=== PATIENT | male | born 1940 | race Caucasian/White ===

== ENCOUNTER 2024-10-15 06:09 | Emergency (ER) | payer MEDICARE, BC, SELFPAY ==
[2024-10-15] VITALS (8 sets, daily range): BP systolic 107–134; BP diastolic 61–84; PULSE 57–67; RESP 16–20; TEMP 36.8–36.9; O2SAT 95–98; BMI 38.0
--- NOTE | 2024-10-15 06:11 | ED_ITS ---
Discharge Plan Disposition Patient Disposition: Home, Self-Care Chief Complaint: Abdominal Pain Prescriptions Prescriptions: No Action citalopram 20 mg tablet PO Patient Comments: TAKE 1 TABLET BY MOUTH EVERY DAY tamsulosin 0.4 mg capsule PO Patient Comments: TAKE 2 CAPSULES BY MOUTH EVERY DAY Entresto 24-26 mg tablet PO Patient Comments: TAKE 1 TABLET BY MOUTH EVERY 12 HOURS temazepam 30 mg capsule PO Patient Comments: TAKE 1 CAPSULE BY MOUTH AT BEDTIME furosemide 40 mg tablet PO Patient Comments: TAKE 1 TABLET BY MOUTH EVERY DAY atorvastatin 40 mg tablet PO Patient Comments: TAKE 1 TABLET BY MOUTH EVERY DAY finasteride 5 mg tablet PO Patient Comments: TAKE 1 TABLET EVERY DAY carvedilol 6.25 mg tablet PO Patient Comments: TAKE 1 TABLET BY MOUTH TWICE A DAY Eliquis 5 mg tablet PO Patient Comments: TAKE 1 TABLET BY MOUTH EVERY 12 HOURS albuterol sulfate 90 mcg/actuation HFA aerosol inhaler inhalation Patient Comments: INHALE 2 PUFFS EVERY 6 HOURS NEEDED FOR WHEEZING OR SHORTNESS OF AIR. potassium chloride [Klor-Con M20] 20 mEq tablet,ER particles/crystals PO Patient Comments: TAKE 1 TABLET BY MOUTH EVERY DAY urea 40 % cream 1 applic topical BID 30 Days Qty: 60 3RF mupirocin 2 % ointment 1 applic topical BID 21 Days Qty: 22 1RF Rx Instructions: Apply to affected area up to twice daily Activity Restrictions/Add. Instructions Additional Instructions/Restrictions: Maintain follow-up with surgery. You do have small inguinal hernia on the right, but no intestine is involved. Call your family doctor to establish care for this visit to the emergency department and schedule follow-up within 48 hours to ensure improvement. If you have any worsening of your condition or any other concerning signs or symptoms, return to the emergency department or your primary care doctor for further evaluation. Clinical Impressions Clinical Impression: Inguinal hernia, right Instructions Patient Instructions: DI for Acute Abdominal Pain Print Language Print Language: Albanian Discharge ED Provider: Dhaval Carrillo General Adult HPI <Lico Nowak MD - Last Filed: 10/15/24 06:54> General Chief complaint: Abdominal Pain Stated complaint: Abd pain Time Seen by Provider: 10/15/24 06:11 History of Present Illness HPI narrative: 84-year-old male with reported history of diabetes, umbilical hernia repair, diverticulitis presents for lower abdominal pain. He reports has been ongoing for about a month but is significantly worse today. He also reports that he has had a few days of swelling in his right testicle and it is hurting worse as well. Denies fever at home. Reports normal urination. Reports he has not had a bowel movement in a while. Related Data Home Medications ?Medication ?Instructions ?Recorded ?Confirmed albuterol sulfate 90 mcg/actuation inhalation 09/28/23 09/28/23 aerosol inhaler apixaban 5 mg tablet (Eliquis) mg PO 09/28/23 09/28/23 atorvastatin 40 mg tablet mg PO 09/28/23 09/28/23 carvedilol 6.25 mg tablet mg PO 09/28/23 09/28/23 citalopram 20 mg tablet mg PO 09/28/23 09/28/23 finasteride 5 mg tablet mg PO 09/28/23 09/28/23 furosemide 40 mg tablet mg PO 09/28/23 09/28/23 potassium chloride 20 mEq meq PO 09/28/23 09/28/23 tablet,extended release(part/cryst) (Klor-Con M) sacubitril 24 mg-valsartan 26 mg tab PO 09/28/23 09/28/23 tablet (Entresto) tamsulosin 0.4 mg capsule mg PO 09/28/23 09/28/23 temazepam 30 mg capsule mg PO 09/28/23 09/28/23 Previous Rx's ?Medication ?Instructions ?Recorded mupirocin 2 % topical ointment 1 applic topical BID cellulitis 3 09/28/23 weeks #22 grams urea 40 % topical cream 1 applic topical BID keratosis 30 09/28/23 days #60 applic Allergies Allergy/AdvReac Type Severity Reaction Status Date / Time No Known Allergies Allergy Verified 09/28/23 13:16 [facility] <Lico Nowak MD - Last Filed: 10/15/24 06:54> [facility] Disclaimer: The information contained in this section may have been updated after the patient was seen, as this information can be updated by other users. Medical History (Updated 10/15/24 @ 09:18 by Dhaval Carrillo MD) FH: cholecystectomy Inguinal hernia Kidney stones Shortness of breath Surgical History (Updated 09/28/23 @ 13:27 by Debra Hermosillo MA) H/O hernia repair S/P placement of cardiac pacemaker Family History (Updated 09/28/23 @ 13:40 by Debra Hermosillo MA) Father Cancer Diabetes Mother Heart disease Social History (Updated 09/28/23 @ 13:29 by Debra Hermosillo MA) Smoking Status: Never smoker alcohol intake: never substance use type: denies use current occupational status: retired Travel in the last 8 weeks?: Inside the [place] household members: spouse housing: house lives independently: Yes marital status: Other Medical History Have you received the Pneumonia Vaccine: Yes <Lico Nowak MD - Last Filed: 10/15/24 06:54> ROS Obtained: Yes All systems reviewed & no additional complaints except as documented Physical Exam <Lico Nowak MD - Last Filed: 10/15/24 06:54> General General appearance: alert and in no apparent distress Head Head exam: atraumatic and normocephalic Eye Eye exam: Present normal appearance, PERRL and EOMI ENT ENT exam: Present normal oropharynx and normal external ear exam Neck Neck exam: Present normal inspection and full ROM Chest Chest inspection: Present normal inspection and symmetric chest wall rise; Absent tenderness Respiratory Respiratory exam: Present normal lung sounds bilaterally; Absent respiratory distress Cardiovascular Cardiovascular exam: Present regular rate and normal rhythm Abdominal Exam Abdominal exam: Present soft, distention and tenderness (Midline and bilateral lower quadrant abdominal tenderness.); Absent guarding exam: Present scrotal swelling (Fullness within the scrotum, no erythema, mildly tender, soft.) Extremities Exam Extremities exam: Present normal inspection; Absent edema or joint swelling Back Exam Back exam: Present normal inspection; Absent tenderness Neurological Exam Neurological exam: Present alert and oriented X3; Absent motor sensory deficit Psychiatric Psychiatric exam: Present normal affect and normal mood Skin Skin exam: Present warm, dry and normal color Lymphatic Lymphatic Findings: no adenopathy Medical Decision Making <Lico Nowak MD - Last Filed: 10/15/24 06:54> Medical Records Medical records reviewed: Yes I reviewed the patient's medical records. Screening: Per USPSTF and CDC recommendations, given the prevalence of disease in our region, it is our hospital?s policy to screen for HIV and viral Hepatitis for all patients aged 18 and over and those with ongoing risk factors. Perico Inquiry Pt receiving controlled substance: No Perico was queried for this patient: No Vital Signs: 10/15/24 06:12 10/15/24 06:21 10/15/24 06:31 Temperature 98.5 F Temperature Source Temporal Artery Scan Pulse Rate 57 L 63 Pulse Rate [Left] 66 Respiratory Rate 18 16 Blood Pressure 109/84 L 134/76 Blood Pressure [Right Arm] 109/84 L Blood Pressure Mean [Right Arm] 92 Blood Pressure Source Automatic Cuff Blood Pressure Source [Right Arm] Automatic Cuff Blood Pressure Position [Right Arm] Sitting 02 Sat by Pulse Oximetry 97 98 97 Oxygen Delivery Method Room Air Room Air 10/15/24 07:17 10/15/24 07:30 10/15/24 08:00 Temperature Temperature Source Pulse Rate 63 59 L 67 Pulse Rate [Left] Respiratory Rate Blood Pressure 117/70 123/68 107/72 L Blood Pressure [Right Arm] Blood Pressure Mean [Right Arm] Blood Pressure Source Blood Pressure Source [Right Arm] Blood Pressure Position [Right Arm] 02 Sat by Pulse Oximetry 98 98 97 Oxygen Delivery Method Room Air Lab Data Lab results reviewed: Yes I reviewed the patient's lab results. Lab Results 10/15/24 06:15: WBC 7.0, RBC 4.29 L, Hgb 13.3 L, Hct 39.3 L, MCV 91.6, MCH 31.0, MCHC 33.8, RDW 12.3, Plt Count 164, MPV 12.1 H, Neut % (Auto) 61.3, Lymph % (Auto) 25.0, [place] % (Auto) 11.4 H, Eos % (Auto) 1.7, Baso % (Auto) 0.3, Neut # (Auto) 4.3, Lymph # (Auto) 1.8, [place] # (Auto) 0.8, Eos # (Auto) 0.1, Baso # (Auto) 0.0, PT 10.9, INR 0.97, Sodium 136, Potassium 4.2, Chloride 108 H, Carbon Dioxide 25, Anion Gap 7.2, BUN 15, Creatinine 0.70, Estimated Creat Clear 95, Estimated GFR 107, Est GFR ( Amer) 129, Glucose 116 H, Calcium 8.7, Total Bilirubin 0.6, AST 22, ALT 19, Alkaline Phosphatase 61, Total Protein 6.4, Albumin 3.8, Globulin 2.6, Albumin/Globulin Ratio 1.5, Lipase 56 10/15/24 07:10: Urine Color Yellow, Urine Appearance Clear, Urine pH 6.0, Ur Specific Bruce 1.010, Urine Protein Negative, Urine Glucose (UA) Negative, Urine Ketones Negative, Urine Blood Negative, Urine Nitrate Negative, Urine Bilirubin Negative, Urine Urobilinogen 0.2, Ur Leukocyte Esterase Negative, Urine RBC None, Urine WBC None, Ur Squamous Epith Cells 3-5, Urine Bacteria None 10/15/24 06:15 10/15/24 06:15 Orders (Tests/Meds): ED MEDICATIONS Discontinued Medications Generic Name Dose Route Start Last Admin Trade Name Freq PRN Reason Stop Dose Admin Acetaminophen 1,000 mg 10/15/24 06:13 10/15/24 07:58 Acetaminophen 500mg Tab PO 10/15/24 06:14 1,000 mg ONCE ONE Administration Iopamidol 75 ml 10/15/24 06:57 10/15/24 06:58 Iopamidol-370 (76%);100ml Bottle IV 10/15/24 06:58 75 ml ONCE ONE Administration Ketorolac Tromethamine 15 mg 10/15/24 07:41 10/15/24 07:55 Ketorolac 30mg/Ml Vial IV 10/15/24 07:42 15 mg ONCE ONE Administration Morphine Sulfate 4 mg 10/15/24 06:13 10/15/24 06:21 Morphine 4mg/Ml Syringe IV 10/15/24 06:14 4 mg ONCE ONE Administration Morphine Sulfate 2 mg 10/15/24 07:41 10/15/24 07:56 Morphine 4mg/Ml Syringe IV 10/15/24 07:42 2 mg ONCE ONE Administration Ondansetron HCl 4 mg 10/15/24 07:57 10/15/24 07:58 Ondansetron 4mg/2ml Vial IV 10/15/24 07:58 4 mg ONCE ONE Administration Sodium Chloride 10 ml 10/15/24 06:57 10/15/24 06:58 Sodium Chloride 0.9% 10ml Syr (Rad Only) IV 10/15/24 06:58 10 ml ONCE ONE Administration ORDERS Category Date Time Status CT abdomen pelvis w con Stat Cat Scan 10/15/24 06:13 Taken CBC w/Auto Diff [Complete Blood Count Auto Diff] Stat Lab 10/15/24 06:15 Completed CMP [Comprehensive Metabolic Panel] Stat Lab 10/15/24 06:15 Completed INR [Prothrombin Time INR] Stat Lab 10/15/24 06:15 Completed Lipase Stat Lab 10/15/24 06:15 Completed UA [Urinalysis and Microscopic] Stat Lab 10/15/24 07:10 Completed Medical Decision Narrative: 84-year-old male with history of diabetes, obesity, diverticulitis, umbilical hernia repair in the past presents for about a month of worsening lower abdominal pain, significantly worse over the last couple days, associated with scrotal pain and swelling. History was obtained via interactive discussion with patient, EMS, chart review. On arrival, patient is [afebrile, hemodynamically stable, satting appropriately, alert, oriented x4, GCS 15], moving all extremities spontaneously. Full physical exam performed and significant for lower abdominal tenderness, fullness in the scrotum, soft, nonerythematous, mildly tender Differential includes but is not limited to constipation, diverticulitis, inguinal hernia, hydrocele, torsion. Patient was given morphine for symptomatic management and correction of underlying abnormalities. Workup initiated including CBC CMP CT abdomen pelvis IV contrast, testicular ultrasound.. On re-evaluation, patient [remains afebrile, HD stable.] Laboratory workup independently interpreted by me and significant for no significant leukocytosis, significant electrolyte derangement, normal renal function. At this time care handed off to oncoming physician pending urinalysis, CT imaging and possible ultrasound. <Dhaval Carrillo MD - Last Filed: 10/15/24 09:18> Vital Signs: 10/15/24 06:12 10/15/24 06:21 10/15/24 06:31 Temperature 98.5 F Temperature Source Temporal Artery Scan Pulse Rate 57 L 63 Pulse Rate [Left] 66 Respiratory Rate 18 16 Blood Pressure 109/84 L 134/76 Blood Pressure [Right Arm] 109/84 L Blood Pressure Mean [Right Arm] 92 Blood Pressure Source Automatic Cuff Blood Pressure Source [Right Arm] Automatic Cuff Blood Pressure Position [Right Arm] Sitting 02 Sat by Pulse Oximetry 97 98 97 Oxygen Delivery Method Room Air Room Air 10/15/24 07:17 10/15/24 07:30 10/15/24 08:00 Temperature Temperature Source Pulse Rate 63 59 L 67 Pulse Rate [Left] Respiratory Rate Blood Pressure 117/70 123/68 107/72 L Blood Pressure [Right Arm] Blood Pressure Mean [Right Arm] Blood Pressure Source Blood Pressure Source [Right Arm] Blood Pressure Position [Right Arm] 02 Sat by Pulse Oximetry 98 98 97 Oxygen Delivery Method Room Air Lab Data Lab Results 10/15/24 06:15: WBC 7.0, RBC 4.29 L, Hgb 13.3 L, Hct 39.3 L, MCV 91.6, MCH 31.0, MCHC 33.8, RDW 12.3, Plt Count 164, MPV 12.1 H, Neut % (Auto) 61.3, Lymph % (Auto) 25.0, [place] % (Auto) 11.4 H, Eos % (Auto) 1.7, Baso % (Auto) 0.3, Neut # (Auto) 4.3, Lymph # (Auto) 1.8, [place] # (Auto) 0.8, Eos # (Auto) 0.1, Baso # (Auto) 0.0, PT 10.9, INR 0.97, Sodium 136, Potassium 4.2, Chloride 108 H, Carbon Dioxide 25, Anion Gap 7.2, BUN 15, Creatinine 0.70, Estimated Creat Clear 95, Estimated GFR 107, Est GFR ( Amer) 129, Glucose 116 H, Calcium 8.7, Total Bilirubin 0.6, AST 22, ALT 19, Alkaline Phosphatase 61, Total Protein 6.4, Albumin 3.8, Globulin 2.6, Albumin/Globulin Ratio 1.5, Lipase 56 10/15/24 07:10: Urine Color Yellow, Urine Appearance Clear, Urine pH 6.0, Ur Specific Bruce 1.010, Urine Protein Negative, Urine Glucose (UA) Negative, Urine Ketones Negative, Urine Blood Negative, Urine Nitrate Negative, Urine Bilirubin Negative, Urine Urobilinogen 0.2, Ur Leukocyte Esterase Negative, Urine RBC None, Urine WBC None, Ur Squamous Epith Cells 3-5, Urine Bacteria None Orders (Tests/Meds): ED MEDICATIONS Discontinued Medications Generic Name Dose Route Start Last Admin Trade Name Freq PRN Reason Stop Dose Admin Acetaminophen 1,000 mg 10/15/24 06:13 10/15/24 07:58 Acetaminophen 500mg Tab PO 10/15/24 06:14 1,000 mg ONCE ONE Administration Iopamidol 75 ml 10/15/24 06:57 10/15/24 06:58 Iopamidol-370 (76%);100ml Bottle IV 10/15/24 06:58 75 ml ONCE ONE Administration Ketorolac Tromethamine 15 mg 10/15/24 07:41 10/15/24 07:55 Ketorolac 30mg/Ml Vial IV 10/15/24 07:42 15 mg ONCE ONE Administration Morphine Sulfate 4 mg 10/15/24 06:13 10/15/24 06:21 Morphine 4mg/Ml Syringe IV 10/15/24 06:14 4 mg ONCE ONE Administration Morphine Sulfate 2 mg 10/15/24 07:41 10/15/24 07:56 Morphine 4mg/Ml Syringe IV 10/15/24 07:42 2 mg ONCE ONE Administration Ondansetron HCl 4 mg 10/15/24 07:57 10/15/24 07:58 Ondansetron 4mg/2ml Vial IV 10/15/24 07:58 4 mg ONCE ONE Administration Sodium Chloride 10 ml 10/15/24 06:57 10/15/24 06:58 Sodium Chloride 0.9% 10ml Syr (Rad Only) IV 10/15/24 06:58 10 ml ONCE ONE Administration ORDERS Category Date Time Status CT abdomen pelvis w con Stat Cat Scan 10/15/24 06:13 Taken CBC w/Auto Diff [Complete Blood Count Auto Diff] Stat Lab 10/15/24 06:15 Completed CMP [Comprehensive Metabolic Panel] Stat Lab 10/15/24 06:15 Completed INR [Prothrombin Time INR] Stat Lab 10/15/24 06:15 Completed Lipase Stat Lab 10/15/24 06:15 Completed UA [Urinalysis and Microscopic] Stat Lab 10/15/24 07:10 Completed Medical Decision Narrative: 84-year-old male with history of diabetes, obesity, diverticulitis, umbilical hernia repair in the past presents for about a month of worsening lower abdominal pain, significantly worse over the last couple days, associated with scrotal pain and swelling. History was obtained via interactive discussion with patient, EMS, chart review. On arrival, patient is afebrile, hemodynamically stable, satting appropriately, alert, oriented x4, GCS 15, moving all extremities spontaneously. Full physical exam performed and significant for lower abdominal tenderness, fullness in the scrotum, soft, nonerythematous, mildly tender Differential includes but is not limited to constipation, diverticulitis, inguinal hernia, hydrocele, torsion. Patient was given morphine for symptomatic management and correction of underlying abnormalities. Workup initiated including CBC CMP CT abdomen pelvis IV contrast, testicular ultrasound.. On re-evaluation, patient remains afebrile, HD stable. Laboratory workup independently interpreted by me and significant for no significant leukocytosis, significant electrolyte derangement, normal renal function. At this time care handed off to oncoming physician pending urinalysis, CT imaging and possible ultrasound. Gerardo: I assumed primary responsibility for this patient after signout from previous physician. On my independent evaluation and interview of patient, pain is still there, intermittent, severe and shooting. Feels superficial on his abdomen, does not feel deeper. Does not radiate into his abdomen feels like it radiates along the bottom of both lower quadrants of his pannus and sometimes feels as if it goes into his testicles. States that his testicles feel swollen. No vomiting or diarrhea, states that he has not had a bowel movement in about 2 days and thinks this may be related. On my physical exam, patient's abdomen is incredibly benign, not eliciting further tenderness when I apply moderate to deep pressure. Despite this, patient intermittently having flares of pain where he grabs his bilateral lower quadrants. I feel this is unlikely to be related to an intra-abdominal catastrophe, nephrolithiasis, mesenteric pathology, or other acute surgical emergency given bilateral nature and well abdominal exam, with nonconstant pain and pain description consistent with neuropathic pain. Given patient's adiposity, could be related to meralgia paresthetica, other neuropathic pain, abdominal distention, gas pains, constipation, diverticulitis, among others. I independently interpreted patient's workup. Normal white blood cell count, normal coags. Chemistry nonactionable and LFTs normal. Lipase negative. Reevaluation, patient still having some pain, 2 mg morphine and Toradol were administered. I independently interpreted patient's CT of the abdomen and pelvis without acute intra-abdominal abnormality. Radiology read confirms this, he does have fat-containing right inguinal hernia, but it does not explain bilateral pain. Reevaluation, patient sleeping comfortably about an hour hour and a half later. States that he has a follow-up with Dr. Hayden today, 10/15 at 10 AM about [address] scan negative, workup negative, appropriate for outpatient management. Because patient at baseline without signs or symptoms of clinical decompensation, deemed appropriate for discharge. Results were relayed to patient who voiced understanding and were agreeable to outpatient management and follow up. I discussed my clinical impression with patient and answered all questions. At this time, the evidence for any other entities in the differential is insufficient to warrant any further testing or ED observation. This was explained as well. Advisory was given that persistent or worsening symptoms require further evaluation. I confirmed the understanding of this discussion. Procedures <Lico Nowak MD - Last Filed: 10/15/24 06:54> Risk/Benefits of Procedure(s) Were Explained: Yes Critical Care <Lico Nowak MD - Last Filed: 10/15/24 06:54> Critical Care Time Critical Care Time: No
--- NOTE | 2024-10-15 06:13 | CT_ITS ---
FINAL REPORT TECHNIQUE: After the administration of intravenous contrast, axial images were obtained through the abdomen and pelvis by computed tomography. The study was performed with techniques to keep radiation dose as low as reasonably achievable, (ALARA). Individual dose reduction techniques using automated exposure control or adjustment of mA and/or kV according to the patient's size were employed. CLINICAL HISTORY: testicular pain COMPARISON: 09/18/2024 FINDINGS: Abdomen: Chronic scarring is noted in the lung bases. There is mild fatty infiltration of the liver. The gallbladder is surgically absent. The spleen, pancreas, adrenals and kidneys appear unremarkable. The aorta is normal in caliber. There is no free fluid or adenopathy. Pelvis: The appendix is unremarkable. The urinary bladder is unremarkable. No bladder stones are identified. There is no free fluid or adenopathy. There is herniation of fat through the right inguinal canal into the scrotum. No evidence of fat stranding or inflammation. IMPRESSION: Fat-containing right inguinal hernia. No evidence of kidney stone. No inflammatory process. Reviewed, Interpreted and Dictated by Kleber Aceves MD Transcribed by Iman Lux Authenticated and [facility]
[2024-10-15] MEDS: MORPHINE 4MG/ML SYRINGE 4 MG IV (06:21)
[2024-10-15 06:24] LABS: Basophils % 0.3 % (0.1-2.0); Eosinophils # 0.1 Kmm3 (0.0-0.4); Eosinophils % 1.7 % (0.1-12.0); Hematocrit 39.3 % (42.0-52.0); Hemoglobin 13.3 g/dL (14.1-18.0); Immature Granulocytes # 0.02 10^3uL; Immature Granulocytes % 0.3 %; Lymphocytes # 1.8 K/mm3 (0.7-4.5); Mean Corpuscular HGB Conc 33.8 g/dL (31.8-35.4); Mean Corpuscular Volume 91.6 fl (80-94); Mean Platelet Volume 12.1 fl (7.4-10.4); Monocytes # 0.8 K/mm3 (0.1-1.0); Monocytes % 11.4 % (1.7-9.3); Neutrophils # 4.3 K/mm3 (1.8-7.8); Neutrophils % 61.3 % (37.0-80.0); Nucleated Red Blood Cells # 0 10^3/uL; Nucleated Red Blood Cells % 0 %; Platelet Count 164 K/mm3 (142-424); Red Blood Count 4.29 M/mm3 (4.60-6.20); Red Cell Distribution Width 12.3 % (11.5-17.5); Red Cell Distribution Width-SD 41.3 fL
--- OUTSIDE RECORDS SUMMARY | 2024-10-15 06:31 | XMS_ITS | Data Portability ---
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 Plan of Treatment Reminders Order Date Submit Date Provider Last Modified By Organization Details Last Modified Time Details Appointments OV NEW 30 2024 01:30P M Cleo Leahy NP Not available Not available Not available Lab None recorded. Referral None recorded. Procedures None recorded. Surgeries None recorded. Imaging None recorded. Medication Orders methocarb fuad 500 mg tablet 2023 024 [facility] #[id number], [address] [place], [address], 12/06/2023 15:19:20 Patient TargetsNo targets recorded. Patient InstructionsNo instructions recorded. Reason for Referral None Reported. Results Created Date Observation Date Name Description Value Unit Range Abnormal Flag Note LastModifiedBy Organization Detail LastModifiedTime 01/16/20 24 10/11/2023 CT, head + brain , w/o contr ast No observ ation record ed. [email or web address] Not Available 01/16 09:31:41 Result Notes None recorded. Problems Name Problem SNOMED Code Status Onset Date Resolution Date Notes Provider Name and Address Organization Details Recorded Time Headache 10220072 Active 2023 Adri paula [facility] & [place] 14:40:09 New daily persistent headache 8633364652745 05 Active 2023 Lana Pollard, DO [address] [facility], [place], [address] , [facility] & [place] 15:10:23 Tension-ty pe headache 326795708 Active 2023 Lana Pollard, [address], [place], [address] , [facility] & [place] 15:16:09 Problem Notes None recorded. Procedures Surgical History Date Name Laterality Status Provider Name and Address Organization Details Recorded Time cardiac pacemaker procedure completed [facility] - [facility] & [place] 12/06/2023 14:41:59 Cholecystectomy completed [facility] [facility] & [place] 12/06/2023 14:42:07 Fragmenting of kidney stone [facility] [place] [facility] [place] 12/06/2023 14:42:13 hernia repair completed [facility] & [place] 12/06/2023 14:42:21 Imaging Results Imaging Date Name Status LastModified by Organiz ation Details LastModified Time 10/11/2023 CT, head + brain, w/o contrast completed [email or web address] Information not available 01/17/2024 09:31:41 Procedure Notes None recorded. Medical Equipment None Reported. Allergies No known drug allergies Medications Name Sig Start Date Stop Date Status Note LastModified by Organization Details LastModified Time Miralax 17 gram oral powder packet Take by oral route as directed. 12/05 completed Not Available Not Available Not Available furosemide 40 mg tablet Take 1 tablet every day by oral route. active Not Available Not Available No t Available atorvastati n 40 mg tablet Take 1 tablet every day by oral route. active Not Available Not Available No t Available methocarbam ol 500 mg tablet TAKE 1 TABLET BY MOUTH TWICE A DAY active Not Available Not Available No t Available carvedilol 6.25 mg tablet TAKE 1 TABLET BY MOUTH TWICE A DAY 12/05 completed Not Available Not Available Not Available prednisone 10 mg tablet 12/05 completed Not Available Not Available Not Available Klor-Con 20 mEq tablet,exte nded release Take 1 tablet every day by oral route. 12/05 completed Not Available Not Available Not Available cetirizine 10 mg tablet TAKE 1 TABLET BY MOUTH EVERY DAY 12/05 completed Not Available Not Available Not Available azithromyci n 250 mg tablet TAKE 2 TABLETS BY MOUTH TODAY, THEN TAKE 1 TABLET DAILY FOR 4 DAYS DIRECTED 12/05 completed Not Available Not Available Not Available urea 40 % topical cream APPLY TO AFFECTED AREA TWICE A DAY FOR KERATOSIS 12/05 completed Not Available Not Available Not Available tramadol 50 mg tablet Take 1 tablet every 12 hours by oral route as needed. active Not Available Not Available No t Available carvedilol 3.125 mg tablet TAKE 1 TABLET BY MOUTH TWICE A DAY active Not Available Not Available No t Available citalopram 20 mg tablet TAKE 1 TABLET BY MOUTH EVERY DAY active Not Available Not Available No t Available tamsulosin 0.4 mg capsule Take 2 capsules every day by oral route. active Not Available Not Available No t Available temazepam 30 mg capsule Take 1 capsule every day by oral route at bedtime. active Not Available Not Available No t Available oseltamivir 75 mg capsule 12/05 completed Not Available Not Available Not Available mupirocin 2 % topical ointment APPLY TO AFFECTED AREA TWICE A DAY FOR 3 WEEKS FOR CELLULITI S 12/05 completed Not Available Not Available Not Available albuterol sulfate HFA 90 mcg/actuati on aerosol inhaler INHALE 2 PUFFS EVERY 6 HOURS NEEDED FOR WHEEZING OR SHORTNESS OF AIR. 12/05 completed Not Available Not Available Not Available finasteride 5 mg tablet Take 1 tablet every day by oral route. active Not Available Not Available No t Available amoxicillin 875 mg-potassiu m clavulanate 125 mg tablet 12/05 completed Not Available Not Available Not Available Klor-Con M20 mEq tablet,exte nded release TAKE 1 TABLET BY MOUTH TWICE A DAY active Not Available Not Available No t Available metoprolol tartrate 25 mg tablet TAKE 1 TABLET BY MOUTH TWICE A DAY 12/05 completed Not Available Not Available Not Available Eliquis 5 mg tablet Take 1 tablet twice a day by oral route. active Not Available Not Available No t Available Entresto 24 mg-26 mg tablet TAKE 1 TABLET BY MOUTH TWICE A DAY active Not Available Not Available No t Available albuterol 90 mcg-budeson samira 80 mcg/actuati on HFA aerosol inhaler Inhale 2 inhalatio ns every 6 hours by inhalatio n route as needed. 12/05 completed Not Available Not Available Not Available Vitals Date Recorded Body weight Body mass index (BMI) Body height Oxygen saturation Oxygen saturation in Arterial blood by Pulse oximetry Heart rate Systolic blood pressure Diastolic blood pressure Provider Name and Address Organization Details Last Updated DateTime 510111. 83 g 38.7 kg/m2 182.88 cm 97 % 97 % 88 /min 110 mm[Hg] 68 mm[Hg] Adri CALLEJAS [facility] & [place] 14:50:12 Social History Question Answer Notes LastModified by Organizat ion Details LastModified Time Tobacco Smoking Status Never Smoker Adri Love chai J[facility]NIOR [facility] & [place] 12/06/2023 14:41:16 What Is Your Level Of Caffeine Consumption? Moderate Information not available 12/06/2023 What Is Your Relationship Status? Lives With Information not available 12/06/2023 Are You Currently In School? No Diploma Information not available 12/06/2023 Sex: Unknown Functional Status Question Answer Note LastModified by Organizat ion Details LastModified Time Do you use any illicit or recreational drugs? No Information not available 12/06/2023 What is your level of alcohol consumption? None Information not available 12/06/2023 Are you currently employed? No retired Information not available 12/06/2023 Mental Status None recorded. Family History Relationship Description Onset Age of this Age Resolved Age Notes LastModified by Organization Details LastModified Time Father Malignant tumor of stomach 88 ldalla Not available 2023 14:40:31 Mother Heart disease 93 ldalla Not available 2023 14:40:47 Medical History Condition Response Atrial Fibrillation Y Kidney Stones Y Sinusitis Y Headaches Y Heart Problems Y Ear or Hearing Problems Y Pacemaker Y Mental Illness Y Diabetes Y Congestive Heart Failure (CHF) Y Heart Disease Y Hypertension Y Past Encounters Encounter ID Performer Location Encounter Start Date Encounter Closed Date Diagnosis/Indication Diagnosis SNOMED-CT Code Diagnosis ICD10 Code Diagnosis Note [id number] DO BOAZ Bowman [facility] Neurology [address] [facility],[address] [place] [phone] 12/06/2023 14:34:12 12/06/2023 15:31:05 Tension-type headache 110614050 G44.209 New daily headaches for the last couple of months that are consistent with musculoske letal headaches. I would recommend he try taking the methocarba mol regularly for the next few weeks to see if this will break this current headache. He will call with an update in a week or two.His neuro exam is normal as is his CT head. No additional imaging is needed at this time. Health Concerns Section Related Observation LastModified by Organization Detai ls LastModified Time None Recorded Concern Status LastModified by Organization Details LastModified Time None Recorded Advance Directives Directive None Recorded Payers Insurance Date Sequence Insurance Name Policy Number Policy Myers Covered Member ID Myers Member ID Guarantor Name 12/23/2023 2 [place]IC[place] [id number] Kuldeep Leroy [id number] Kuldeep Leroy 12/23/2023 1 [place] Kuldeep Leroy [id number] Kuldeep Leroy Notes Date Note Type Note Provider Name and Address Organization Details Recorded Time 12/06/2023 text/html 83 y/o right segal ded male here for neurologic consultation requested by Dr Be regarding headaches. Kuldeep is accompanied by his today. Kuldeep reports having a constant headache for the last two months. It started as a dull headache and gradually got worse.He went to [place] [facility] on 10/11/[address] due to the headache[address] CT head was unremarkable. He was given toradol and ketorolac with temporary relief of the headache. He was diagnosed with a musculoskeletal type headache.Since then he really has not had any relief of the headache.He rates the pain a 8/10 on pain scale.The more active he is the better he feels. If he leans back in a chair it makes the headache worse.The pain is behind his eyes and around the sides of his head and into the back of his head. It is a soreness in his head. He has no migraine features including auras, N/V, photosensitivity or sonophobia. He has methocarbomol and tramadol prescribed to help with the pain but he does not use these regularly. He will only take these if the pain gets worse which he estimates has only been a few times in the last month. He does find that the medications do help but he has been hesistent to take medication for the headaches due to his heart condition.He denies any side effects from the medications when he has taken them. He went to the chiropractor recently to see if he got an adjustment on his neck if it would help his headaches . This might have led to a slight improvement he has noticed just in the last couple of weeks. Lana Pollard, DO [address], [place], [address], [facility] - [facility] - [place] & [place] 12/06/2023 15:41:45
--- OUTSIDE RECORDS SUMMARY | 2024-10-15 06:31 | XMS_ITS | Data Portability ---
Author Organization JÚNIOR - JERRY Abraham [place] [facility] Address [address] [facility] [address] [place] [address] Assessment Encounter Date Assessment Date Assessment LastModified by Organization Details LastModified Time 03/02/2017 03/02/2017 We will treat initially with Lotrisone but he does desire circumcision later this year. [email or web address] Not available 03/05/2017 20:56:03 06/06/2017 06/06/2017 SURGERY DATE: 06/06/2017 PREOPERATIVE DIAGNOSES: 1. Balanitis. 2. Phimosis. POSTOPERATIVE DIAGNOSES: 1. Balanitis. 2. Phimosis. PROCEDURE: Circumcision and penile block. ANESTHESIA: General. ESTIMATED BLOOD LOSS: 5 mL. COMPLICATIONS: None. SPECIMENS: Phimotic foreskin removed, but not sent for pathologic analysis. SURGEON: Larry Michaels MD INDICATIONS: The patient with recurrent balanitis as phimosis. He was seen in the office and elected to proceed with circumcision. OPERATIVE NOTE: The patient was correctly identified in the preoperative holding area. Informed consent was obtained after all risks, benefits, and alternatives were reviewed with the patient. He was taken to the procedure room and placed in supine position. General anesthesia was induced. He was repositioned to have all pressure points padded. Proper time out of procedure completely. Preoperative antibiotics were given. The genitourinary area was prepped and draped in the normal sterile fashion. To initiate the procedure, penile block was performed using local injectable analgesia without epinephrine. Surgical marking pen was then used to delineate the area of the blanc ring overlying the prepuce and to delineate a line around the mucosal collar, approximately 1 cm proximal to the blanc ring. Scalpel was then used to make an incision circumferentially around the previously marked lines. The skin between the incisions was excised using electrocautery. Hemostasis achieved using coagulation current. The skin was then reapproximated with running chromic suture from the 6 o'clock position to the 12 o' clock position and the 12 o' clock position to the 6 o'clock position. Antibiotic ointment and sterile dressings were placed. DISPOSITION: The patient tolerated the procedure well, He was taken to recovery room in stable condition. He is discharged home with pain medications and instructions to follow up in approximately 1 month. [email or web address] Not available 06/08/2017 19:53:19 07/06/2017 07/06/2017 Circumcision is healing appropriately. [email or web address] Not available 07/09/2017 21:20:46 01/11/2018 01/11/2018 He is doing well following circumcision. He has minimal lower urinary tract symptoms and benign GINNY. Annual follow-up. [email or web address] Not available 01/13/2018 10:13:16 11/08/2018 11/08/2018 Lower urinary tr act symptoms stable. Annual follow-up. [email or web address] Not available 12/02/2018 18:33:46 Plan of Treatment Reminders Order Date Submit Date Provider Last Modified By Organization Details Last Modified Time Details Appointments None recorded. Lab urinalysis , dipstick, auto 2018 019 [email or web address] 4 [facility] With [address], [place], [address], 9 18:33:47 urinalysis , dipstick, auto 2017 018 [email or web address] 4 [facility] With [address], [place], [address], 8 10:13:17 urinalysis , dipstick, auto 2017 018 [email or web address] 4 [facility] With [address], [place], [address], 8 21:20:01 urinalysis , dipstick, auto 2016 017 [email or web address] 4 [facility] With [address], [place], [address], 7 16:34:19 Referral None recorded. Procedures None recorded. Surgeries circumcisi on (SURG) [address] [facility], [address] [facility], [facility] [address], [place], [address], 7 09:30:00 Imaging None recorded. Medication Orders [place] 7.5 mg-325 mg tablet 2017 018 [email or web address] 4 Not available 8 14:03:30 clotrimazo le-betamet hasone 1 %-0.05 % topical cream 2016 017 INTERFACE [id number], [address] [place], [address], 7 16:34:21 Patient TargetsNo targets recorded. Patient Instructions Encounter Date Encounter Id Patient Instructions Last Modified By Organization Details Last Modified Time 03/02/2017 [id number] learning about healthy weight SUE Not available 03/04/2017 16:02:43 balanitis: care instructions SUE Not available 03/04/2017 16:02:18 11/08/2018 [id number] healthy together [email or web address] Not availa ble 12/02/2018 18:33:47 Reason for Referral None Reported. Results Created Date Observation Date Name Description Value Unit Range Abnormal Flag Note LastModifiedBy Organization Detail LastModifiedTime 11/09/19 19 11/08/2018 urina lysis , dipst ick, auto Unknown Analyte Yellow Not Available [facility] Extended Services With [address] [place], [address], 11/08/2018 16:10:42 11/09/19 19 11/08/2018 urina lysis , dipst ick, auto Unknown Analyte Clear Not Available [facility] Extended [facility] With [address] [place], [address], 11/08/2018 16:10:42 11/09/19 19 11/08/2018 urina lysis , dipst ick, auto Unknown Analyte 1.020 Not Available [facility] Extended [facility] With [address] [place], [address], 11/08/2018 16:10:42 11/09/19 19 11/08/2018 urina lysis , dipst ick, auto Unknown Analyte 1.003 - 1.035 Not Available [facility] Extended Services With [address] [place], [address], 11/08/2018 16:10:42 11/09/19 19 11/08/2018 urina lysis , dipst ick, auto Unknown Analyte 6.0 Not Available [facility] Extended [facility] With [address] [place], [address], 11/08/2018 16:10:42 11/09/19 19 11/08/2018 urina lysis , dipst ick, auto Unknown Analyte 5.0 - 8.0 Not Available [facility] With [address] [place], [address], 11/08/2018 16:10:42 11/09/19 19 11/08/2018 urina lysis , dipst ick, auto Unknown Analyte Negati ve Not Available [facility] Services With [address] [place], [address], 11/08/2018 16:10:42 11/09/19 19 11/08/2018 urina lysis , dipst ick, auto Unknown Analyte Negati ve Not Available [facility] With [address] [place], [address], 11/08/2018 16:10:42 11/09/19 19 11/08/2018 urina lysis , dipst ick, auto Unknown Analyte Negati ve Not Available [facility] With [address], [place], [address], 11/08/2018 16:10:42 11/09/19 19 11/08/2018 urina lysis , dipst ick, auto Unknown Analyte Negati ve Not Available [facility] With [address] [place], [address], 11/08/2018 16:10:42 11/09/19 19 11/08/2018 urina lysis , dipst ick, auto Unknown Analyte Negtiv e Not Available [facility] With [address] [place], [address], 11/08/2018 16:10:42 11/09/19 19 11/08/2018 urina lysis , dipst ick, auto Unknown Analyte Negati ve - Trace Not Available [facility] With [address] [place], [address], 11/08/2018 16:10:42 11/09/19 19 11/08/2018 urina lysis , dipst ick, auto Unknown Analyte Normal Not Available [facility] With [address] [place], [address], 11/08/2018 16:10:42 11/09/19 19 11/08/2018 urina lysis , dipst ick, auto Unknown Analyte Normal Not Available [facility] With [address] [place], [address], 11/08/2018 16:10:42 11/09/19 19 11/08/2018 urina lysis , dipst ick, auto Unknown Analyte Negati ve Not Available [facility] With [address] [place], [address], 11/08/2018 16:10:42 11/09/19 19 11/08/2018 urina lysis , dipst ick, auto Unknown Analyte Negati ve Not Available [facility] With [address] [place], [address], 11/08/2018 16:10:42 11/09/19 19 11/08/2018 urina lysis , dipst ick, auto Unknown Analyte Normal Not Available [facility] Services With [address] [place], [address], 11/08/2018 16:10:42 11/09/19 19 11/08/2018 urina lysis , dipst ick, auto Unknown Analyte Normal - 1mg/dl Not Available [facility] With [address] [place], [address], 11/08/2018 16:10:42 11/09/19 19 11/08/2018 urina lysis , dipst ick, auto Unknown Analyte Negati ve Not Available [facility] With [address] [place], [address], 11/08/2018 16:10:42 11/09/19 19 11/08/2018 urina lysis , dipst ick, auto Unknown Analyte Negati ve Not Available [facility] With [address] [place], [address], 11/08/2018 16:10:42 11/09/19 19 11/08/2018 urina lysis , dipst ick, auto Unknown Analyte Negati ve Not Available [facility] With [address] [place], [address], 11/08/2018 16:10:42 11/09/19 19 11/08/2018 urina lysis , dipst ick, auto Unknown Analyte Negati ve Not Available [facility] With [address] [place], [address], 11/08/2018 16:10:42 11/09/19 19 11/08/2018 urina lysis , dipst ick, auto Unknown Analyte Clean Catch Not Available [facility] With [address] [place], [address], 11/08/2018 16:10:42 11/09/19 19 11/08/2018 urina lysis , dipst ick, auto Unknown Analyte Automa ya Not Available [facility] With [address] [place], [address], 11/08/2018 16:10:42 01/12/20 18 01/11/2018 urina lysis , dipst ick, auto Unknown Analyte Yellow Not Available [facility] Services With [address] [place], [address], 01/11/2018 14:33:40 01/12/20 18 01/11/2018 urina lysis , dipst ick, auto Unknown Analyte Clear Not Available [facility] Extended Services With [address] [place], [address], 01/11/2018 14:33:40 01/12/20 18 01/11/2018 urina lysis , dipst ick, auto Unknown Analyte 1.015 Not Available [facility] Services With [address] [place], [address], 01/11/2018 14:33:40 01/12/20 18 01/11/2018 urina lysis , dipst ick, auto Unknown Analyte 6.5 Not Available [facility] With [address] [place], [address], 01/11/2018 14:33:40 01/12/20 18 01/11/2018 urina lysis , dipst ick, auto Unknown Analyte Negati ve Not Available [facility] With [address] [place], [address], 01/11/2018 14:33:40 01/12/20 18 01/11/2018 urina lysis , dipst ick, auto Unknown Analyte Negati ve Not Available [facility] With [address] [place], [address], 01/11/2018 14:33:40 01/12/20 18 01/11/2018 urina lysis , dipst ick, auto Unknown Analyte Negtiv e Not Available [facility] With [address] [place], [address], 01/11/2018 14:33:40 01/12/20 18 01/11/2018 urina lysis , dipst ick, auto Unknown Analyte Normal Not Available [facility] Extended Services With [address] [place], [address], 01/11/2018 14:33:40 01/12/20 18 01/11/2018 urina lysis , dipst ick, auto Unknown Analyte Negati ve Not Available [facility] With [address] [place], [address], 01/11/2018 14:33:40 01/12/20 18 01/11/2018 urina lysis , dipst ick, auto Unknown Analyte Normal Not Available [facility] With [address] [place], [address], 01/11/2018 14:33:40 01/12/20 18 01/11/2018 urina lysis , dipst ick, auto Unknown Analyte Negati ve Not Available [facility] With [address] [place], [address], 01/11/2018 14:33:40 01/12/20 18 01/11/2018 urina lysis , dipst ick, auto Unknown Analyte Negati ve Not Available [facility] With [address] [place], [address], 01/11/2018 14:33:40 01/12/20 18 01/11/2018 urina lysis , dipst ick, auto Unknown Analyte Clean Catch Not Available [facility] With [address] [place], [address], 01/11/2018 14:33:40 01/12/20 18 01/11/2018 urina lysis , dipst ick, auto Unknown Analyte Automa ya Not Available [facility] With [address] [place], [address], 01/11/2018 14:33:40 07/06/19 18 07/06/2017 urina lysis , dipst ick, auto Unknown Analyte Yellow Not Available [facility] With [address] [place], [address], 07/06/2017 14:00:01 07/06/19 18 07/06/2017 urina lysis , dipst ick, auto Unknown Analyte Clear Not Available [facility] Services With [address] [place], [address], 07/06/2017 14:00:01 07/06/19 18 07/06/2017 urina lysis , dipst ick, auto Unknown Analyte 1.025 Not Available [facility] With [address] [place], [place], [address], 07/06/2017 14:00:01 07/06/19 18 07/06/2017 urina lysis , dipst ick, auto Unknown Analyte 5.0 Not Available [facility] With [address] [place], [address], 07/06/2017 14:00:01 07/06/19 18 07/06/2017 urina lysis , dipst ick, auto Unknown Analyte Negati ve Not Available [facility] With [address] [place], [address], 07/06/2017 14:00:01 07/06/19 18 07/06/2017 urina lysis , dipst ick, auto Unknown Analyte Negati ve Not Available [facility] With [address] [place], [address], 07/06/2017 14:00:01 07/06/19 18 07/06/2017 urina lysis , dipst ick, auto Unknown Analyte Negtiv e Not Available [facility] With [address] [place], [address], 07/06/2017 14:00:01 07/06/19 18 07/06/2017 urina lysis , dipst ick, auto Unknown Analyte Normal Not Available [facility] Extended Services With [address] [place], [address], 07/06/2017 14:00:01 07/06/19 18 07/06/2017 urina lysis , dipst ick, auto Unknown Analyte Negati ve Not Available [facility] With [address] [place], [address], 07/06/2017 14:00:01 07/06/19 18 07/06/2017 urina lysis , dipst ick, auto Unknown Analyte Normal Not Available [facility] Services With [address] [place], [address], 07/06/2017 14:00:01 07/06/19 18 07/06/2017 urina lysis , dipst ick, auto Unknown Analyte Negati ve Not Available [facility] With [address] [place], [address], 07/06/2017 14:00:01 07/06/19 18 07/06/2017 urina lysis , dipst ick, auto Unknown Analyte Negati ve Not Available [facility] With [address] [place], [address], 07/06/2017 14:00:01 07/06/19 18 07/06/2017 urina lysis , dipst ick, auto Unknown Analyte Clean Catch Not Available [facility] With [address] [place], [address], 07/06/2017 14:00:01 07/06/19 18 07/06/2017 urina lysis , dipst ick, auto Unknown Analyte Automa ya Not Available [facility] With [address] [place], [address], 07/06/2017 14:00:01 03/02/20 17 03/02/2017 urina lysis , dipst ick, auto Unknown Analyte Yellow Not Available [facility] Services With [address] [place], [address], 03/02/2017 16:31:24 03/02/20 17 03/02/2017 urina lysis , dipst ick, auto Unknown Analyte Clear Not Available [facility] Extended Services With [address] [place], [address], 03/02/2017 16:31:24 03/02/20 17 03/02/2017 urina lysis , dipst ick, auto Unknown Analyte 1.020 Not Available [facility] Services With [address] [place], [address], 03/02/2017 16:31:24 03/02/20 17 03/02/2017 urina lysis , dipst ick, auto Unknown Analyte 5.0 Not Available [facility] Services With [address] [place], [address], 03/02/2017 16:31:24 03/02/20 17 03/02/2017 urina lysis , dipst ick, auto Unknown Analyte Negati ve Not Available [facility] With [address] [place], [address], 03/02/2017 16:31:24 03/02/20 17 03/02/2017 urina lysis , dipst ick, auto Unknown Analyte Negati ve Not Available [facility] With [address] [place], [address], 03/02/2017 16:31:24 03/02/20 17 03/02/2017 urina lysis , dipst ick, auto Unknown Analyte Negtiv e Not Available [facility] With [address] [place], [address], 03/02/2017 16:31:24 03/02/20 17 03/02/2017 urina lysis , dipst ick, auto Unknown Analyte Normal Not Available [facility] Extended Services With [address] [place], [address], 03/02/2017 16:31:24 03/02/20 17 03/02/2017 urina lysis , dipst ick, auto Unknown Analyte Negati ve Not Available [facility] With [address] [place], [address], 03/02/2017 16:31:24 03/02/20 17 03/02/2017 urina lysis , dipst ick, auto Unknown Analyte Normal Not Available [facility] Services With [address] [place], [address], 03/02/2017 16:31:24 03/02/20 17 03/02/2017 urina lysis , dipst ick, auto Unknown Analyte Negati ve Not Available [facility] With [address] [place], [address], 03/02/2017 16:31:24 03/02/20 17 03/02/2017 urina lysis , dipst ick, auto Unknown Analyte Negati ve Not Available [facility] With [address] [place], [address], 03/02/2017 16:31:24 03/02/20 17 03/02/2017 urina lysis , dipst ick, auto Unknown Analyte Clean Catch Not Available [facility] With [address] [place], [address], 03/02/2017 16:31:24 03/02/20 17 03/02/2017 urina lysis , dipst ick, auto Unknown Analyte Automa ya Not Available [facility] With [address] [place], [address], 03/02/2017 16:31:24 Result Notes None recorded. Problems Name Problem SNOMED Code Status Onset Date Resolution Date Notes Provider Name and Address Organization Details Recorded Time Burn of penis 599819741 Active 017 Gisselle Prajapati [facility] 03/02/2017 16:27:43 Problem Notes None recorded. Procedures Surgical History Date Name Laterality Status Provider Name and Address Organization Details Recorded Time [facility] 16:28:41 Kidney Stones completed [facility] 03/02/2017 16:28:44 Imaging Results None recorded. Procedure Notes None recorded. Medical Equipment None Reported. Allergies No known drug allergies Medications Name Sig Start Date Stop Date Status Note LastModified by Organization Details LastModified Time Claritin 10 mg tablet Take 1 tablet every day by oral route. active Not Available Not Available No t Available citalopram 20 mg tablet Take 1 tablet every day by oral route. active Not Available Not Available No t Available tamsulosin 0.4 mg capsule Take 1 capsule every day by oral route. active Not Available Not Available No t Available temazepam 30 mg capsule Take 1 capsule every day by oral route. active Not Available Not Available No t Available cephalexin 500 mg capsule Take 1 capsule every 6 hours by oral route. active Not Available Not Available Not Available clotrimazole -betamethaso ne 1 %-0.05 % topical cream APPLY TO THE AFFECTED AND SURROUNDING AREAS OF SKIN BY TOPICAL ROUTE 2 TIMES PER DAY IN THE MORNING AND EVENING FOR 2 WEEKS 2016 active Not Available Not Available Not Avai lable [place] 7.5 mg-325 mg tablet Take 1 tablet every 4-6 hours by oral route as needed. 2017 active Not Available Not Available Not Avai lable Antifungal (clotrimazol e) 1 % topical cream APPLY TO THE AFFECTED AND SURROUNDING AREAS OF SKIN BY TOPICAL ROUTE 2 TIMES PER DAY IN THE MORNING AND EVENING active Not Available Not Available No t Available finasteride active Not Available Not A vailable Not Available naproxen active Not Available Not Avai lable Not Available Vitals Date Recorded Body height Body mass index (BMI) Body weight Systolic blood pressure Diastolic blood pressure Provider Name and Address Organization Details Last Updated DateTime 03/02/2017 182.88 cm 35.3 kg/m2 122679.0 2 g 120 mm[Hg] 68 mm[Hg] Gisselle Prajapati [facility] 7 16:21:30 Date Recorded Body height Body mass index (BMI) Body weight Systolic blood pressure Diastolic blood pressure Provider Name and Address Organization Details Last Updated DateTime 07/06/2017 182.88 cm 35.3 kg/m2 092771.0 2 g 140 mm[Hg] 88 mm[Hg] [facility] 8 13:59:32 Date Recorded Body height Body mass index (BMI) Body weight Systolic blood pressure Diastolic blood pressure Provider Name and Address Organization Details Last Updated DateTime 01/11/2018 182.88 cm 35.3 kg/m2 040502.0 2 g 138 mm[Hg] 80 mm[Hg] [facility] 8 14:32:59 Date Recorded Body height Body mass index (BMI) Body weight Systolic blood pressure Diastolic blood pressure Provider Name and Address Organization Details Last Updated DateTime 11/08/2018 182.88 cm 35.3 kg/m2 657385.0 2 g 138 mm[Hg] 80 mm[Hg] Gisselle Prajapati [facility] 9 16:09:50 Social History Question Answer Notes LastModified by Organizat ion Details LastModified Time Tobacco Smoking Status Never Smoker Gisselle Prajapati [facility] 03/02/2017 16:28:20 How Much Tobacco Do You Chew? None Information not available 11/08/2018 Marital Status [email or web address] Informatio n not available 03/02/2017 What Was The Date Of Your Most Recent Tobacco Screening? 11/08/2018 Information n ot available 07/23/2019 Sex: Unknown Functional Status Question Answer Note LastModified by Organization D etails LastModified Time What is your level of alcohol consumption? None Information not available 03/02/2017 Mental Status None recorded. Family History Relationship Description Onset Age of this Age Resolved Age Notes LastModified by Organization Details LastModified Time Unspecified Relation Kidney stone [email or web address] Not available 02/04 16:27:57 Father Diabetes mellitus [email or web address] Not available 2016 16:28:04 Medical History Condition Response Anxiety Disorder Y Kidney Stones Y Depression Y Past Encounters Encounter ID Performer Location Encounter Start Date Encounter Closed Date Diagnosis/Indication Diagnosis SNOMED-CT Code Diagnosis ICD10 Code Diagnosis Note [id number] LARRY MICHAELS MD [facility] [address] [place], [place] [address] 03/02/2017 16:20:25 03/06/2017 14:55:57 Balanitis [id number] N48.1 [id number] LARRY MICHAELS MD SURGERY SCHEDULE [address] [place] [address] 06/06/2017 10:56:46 06/06/2017 10:58:56 Balanitis [id number] N48.1 [id number] LARRY MICHAELS MD [facility] [address],[place] [address] 07/06/2017 13:31:15 07/12/2017 15:47:16 Balanitis [id number] N48.1 [id number] LARRY MICHAELS MD [facility] [address],[place] [address] 01/11/2018 13:41:25 01/15/2018 07:57:24 Benign prostatic hyperplasia with outflow obstruction [id number] N40.1 [id number] LARRY MICHAELS MD [facility] [address],[place] [address] 11/08/2018 14:52:38 12/03/2018 11:11:32 Benign prostatic hyperplasia with outflow obstruction [id number] N40.1 Health Concerns Section Related Observation LastModified by Organization Detai ls LastModified Time None Recorded Concern Status LastModified by Organization Details LastModified Time None Recorded Advance Directives Directive None Recorded Payers Insurance Date Sequence Insurance Name Policy Number Policy Myers Covered Member ID Myers Member ID Guarantor Name 12/03/2018 2 [place] [id number] Kuldeep Leroy [id number] Kuldeep Leroy 11/05/2018 1 [place] Kuldeep Leroy [id number] Kuldeep Leroy 03/03/2017 1 *SELF PAY* Stephanie Leroy Notes Date Note Type Note Provider Name and Address Organization Details Recorded Time 03/02/2017 text/html 76-year-old male in the office for consultation and evaluation of recent recurrent balanitis. He has tried [id number]-[id number] antifungal cream with some success. He is able to reduce his foreskin without significant problems. He does have BPH and takes Flomax 0.8 mg daily and finasteride. He voids every 2-3 hours with nocturia twice nightly. He denies hesitancy, urgency, hematuria, dysuria. LARRY MICHAELS MD [address] [place] [address] [place], [address] 03/05/2017 20:57:09 07/06/2017 text/html 76-year-old male in the office for follow-up evaluation after recent circumcision for recurrent balanitis. He is doing well. He believes the area has healed after circumcision. He denies hematuria or dysuria. [facility] [place], [address] 07/09/2017 21:21:11 01/11/2018 text/html 77-year-old male in the office for follow-up evaluation of recurrent balanitis treated with circumcision. He states it has healed appropriately. He denies daytime frequency. He has nocturia twice nightly. No hematuria or dysuria. LARRY MICHAELS MD [address] [place] [address] [place], [address], [facility] 01/13/2018 10:14:53 11/08/2018 text/html 78-year-old male in the office for follow-up evaluation of benign prostatic hyperplasia and history of balanitis status post circumcision. He denies irritative voiding symptoms. He denies hematuria or dysuria. He has nocturia 1-2 times nightly. He denies daytime frequency. LARRY MICHAELS MD [address] [place] [address] [place], [address], [facility] 12/02/2018 18:34:17
[2024-10-15 06:33] LABS: Alanine Aminotransferase 19 U/L (12-78); Albumin Level 3.8 g/dl (3.5-5.0); Albumin/Globulin Ratio 1.5 (1.1-1.8); Alkaline Phosphatase 61 U/L (38-126); Anion Gap 7.2 mEq/L (5-15); Aspartate Amino Transferase 22 U/L (17-59); Bilirubin,Total 0.6 mg/dl (0.2-1.3); Blood Urea Nitrogen 15 mg/dl (9-20); Calcium 8.7 mg/dl (8.4-10.2); Carbon Dioxide 25 mmol/L (22.0-30.0); Chloride 108 mmol/L (98-107); Creatinine Clearance Estimated 95 mL/min (50-200); Estimated Glomerular Filt Rate 107 ml/min (>60); GFR (African American) 129 ML/MIN (>60); Globulin 2.6 g/dL (1.3-3.2); Glucose 116 mg/dl (74-100); INR 0.97 (0.9-1.1); Lipase 56 U/L (23-300); Potassium 4.2 mmoL/L (3.5-5.1); Prothrombin Time 10.9 seconds (10.1-12.5); Sodium 136 mmol/L (136-145); Total Protein,Serum 6.4 g/dl (6.3-8.2)
[2024-10-15] MEDS: SODIUM CHLORIDE 0.9% 10ML SYR (RAD ONLY) 10 ML IV (06:58)
[2024-10-15] MEDS: IOPAMIDOL-370 (76%);100ML BOTTLE 75 ML IV (06:58)
[2024-10-15 07:14] LABS: Microscopic, Urine URINE MICROSCOPIC (MICROSCOPIC)
--- NOTE | 2024-10-15 07:21 | PC.NURSE ---
pt c/o of continued abd pain. Dr Carrillo notified of this.
[2024-10-15 07:32] LABS: Appearance,Urine CLEAR (Clear); Bilirubin,Urine Negative (Negative); Blood, Urine Negative (Negative); Color,Urine YELLOW (Yellow); Glucose,Urine (UA) Negative (Negative); Ketones,Urine Negative (Negative); Leukocyte Esterase,Urine Negative (Negative); Nitrate,Urine Negative (Negative); Protein,Urine Negative (Negative); Urobilinogen,Urine 0.2 EU/dl (0.2)
[2024-10-15] MEDS: KETOROLAC 30MG/ML VIAL 15 MG IV (07:55)
[2024-10-15] MEDS: MORPHINE 4MG/ML SYRINGE 2 MG IV (07:56)
[2024-10-15] MEDS: ACETAMINOPHEN 500MG TAB 1000 MG PO (07:58)
[2024-10-15] MEDS: ONDANSETRON 4MG/2ML VIAL 4 MG IV (07:58)
== END 2024-10-15 09:36 | disposition home or self-care (01) ==
PROVIDERS: Emergency Medicine; Emergency Provider Emergency Medicine
DX: R10.30 Lower abdominal pain, unspecified (principal); K40.90 Unilateral inguinal hernia, without obstruction or gangrene, not specified as recurrent
CPT/HCPCS: 74177; 80053; 81001; 83690; 85025; 85610; 96374; 96375; 96376; 99285; J1885; J2270; J2405; Q9967

== ENCOUNTER 2024-10-15 14:04 | Outpatient (CLI) | payer MEDICARE, BC, SELFPAY ==
[2024-10-15 14:28] LABS: Iron 62 ug/dL (49-181)
[2024-10-15 14:37] LABS: Total Iron Binding Capacity 317 ug/dL (261-462)
[2024-10-15 15:04] LABS: Ferritin 36.3 ng/ml (17.9-464)
[2024-10-15 16:08] LABS: Occult Blood,Stool Positive (Negative)
== END 2024-10-15 23:59 | disposition home or self-care (01) ==
LOC: LAB 14:06
PROVIDERS: PCP Family Medicine; Visit Provider Internal Medicine Gastroenterology
DX: D64.9 Anemia, unspecified (principal); R14.0 Abdominal distension (gaseous)
CPT/HCPCS: 36415; 82272; 82656; 82728; 83540; 83550; G0328

== ENCOUNTER 2024-10-15 14:48 | Emergency (ER) | payer MEDICARE, BC, SELFPAY ==
[2024-10-15 15:04] VITALS: BP 115/64; PULSE 60; RESP 18; TEMP 36.4; O2SAT 97; BMI 38.9
--- NOTE | 2024-10-15 15:12 | ED_ITS ---
<Statement entered by Deejay Varela MD - 10/15/24 23:21> I was consulted by the JOSE G, and we discussed the complexity of the problems being addressed. I approved the treatment and management plan for this patient's care in the emergency department, thus performing a substantive portion of the medical decision making. Deejay Varela MD Discharge Plan Disposition Patient Disposition: Home, Self-Care Condition: Fair Prescriptions Prescriptions: No Action albuterol sulfate 90 mcg/actuation HFA aerosol inhaler inhalation Patient Comments: INHALE 2 PUFFS EVERY 6 HOURS NEEDED FOR WHEEZING OR SHORTNESS OF AIR. urea 40 % cream 1 applic topical BID 30 Days Qty: 60 3RF mupirocin 2 % ointment 1 applic topical BID 21 Days Qty: 22 1RF Rx Instructions: Apply to affected area up to twice daily Eliquis 5 mg tablet 5 mg PO Q12H Patient Comments: TAKE 1 TABLET BY MOUTH EVERY 12 HOURS atorvastatin 40 mg tablet 40 mg PO ONCE Patient Comments: TAKE 1 TABLET BY MOUTH EVERY DAY carvedilol 6.25 mg tablet 6.25 mg PO BID Patient Comments: TAKE 1 TABLET BY MOUTH TWICE A DAY citalopram 20 mg tablet 20 mg PO ONCE Patient Comments: TAKE 1 TABLET BY MOUTH EVERY DAY finasteride 5 mg tablet 5 mg PO ONCE Patient Comments: TAKE 1 TABLET EVERY DAY furosemide 40 mg tablet 40 mg PO ONCE Patient Comments: TAKE 1 TABLET BY MOUTH EVERY DAY potassium chloride [Klor-Con M20] 20 mEq tablet,ER particles/crystals 20 meq PO ONCE Patient Comments: TAKE 1 TABLET BY MOUTH EVERY DAY Entresto 24-26 mg tablet 1 tab PO .Q12 Patient Comments: TAKE 1 TABLET BY MOUTH EVERY 12 HOURS tamsulosin 0.4 mg capsule 0.8 mg PO ONCE Patient Comments: TAKE 2 CAPSULES BY MOUTH EVERY DAY temazepam 30 mg capsule 30 mg PO ONCE Patient Comments: TAKE 1 CAPSULE BY MOUTH AT BEDTIME Referrals Follow up/Referrals: Kuldeep Fletcher MD [Staff Physician] - See instructions Paul Be [Primary Care Provider] - See instructions Activity Restrictions/Add. Instructions Additional Instructions/Restrictions: I recommend continuing taking Tylenol alternating with Motrin for your symptoms. I think that you are having pressure sensation and being uncomfortable however we have revealed no emergent serious or life-threatening condition today if this continues to be a problem you may need to have your hernia repaired. Please follow-up with general surgery as we discussed. If you have persistent new or worsening signs or symptoms follow-up with your PCP or return to the ER as needed. Clinical Impressions Clinical Impression: Inguinal hernia of right side without obstruction or gangrene, Bilateral hydrocele, Pain in right testicle Print Language Print Language: Slovenian Discharge ED Provider: Deejay Varela General Adult HPI General Chief complaint: PAIN Stated complaint: groin pain Time Seen by Provider: 10/15/24 15:12 History of Present Illness HPI narrative: Patient Matthieu presents for the second time today for right testicular pain. Patient was seen earlier this date and discharged after his workup revealed only a fat-containing right inguinal hernia. He was evaluated both by general s urgery and gastroenterology and represented to the emergency department with return of his right testicular pain. Patient has had 3 days of this pain without loss of bowel or bladder. There is no position of comfort there is no aggravating or relieving factors. General surgery felt that this was a nonemergent inguinal hernia that was appropriate for outpatient management and gastroenterology did felt that possibly he could have constipation that could be contributing by pressing on the inguinal ligaments Related Data Home Medications ?Medication ?Instructions ?Recorded ?Confirmed albuterol sulfate 90 mcg/actuation inhalation 09/28/23 10/15/24 aerosol inhaler apixaban 5 mg tablet (Eliquis) 5 mg PO Q12H 10/15/24 10/15/24 atorvastatin 40 mg tablet 40 mg PO ONCE 10/15/24 10/15/24 carvedilol 6.25 mg tablet 6.25 mg PO BID 10/15/24 10/15/24 citalopram 20 mg tablet 20 mg PO ONCE 10/15/24 10/15/24 finasteride 5 mg tablet 5 mg PO ONCE 10/15/24 10/15/24 furosemide 40 mg tablet 40 mg PO ONCE 10/15/24 10/15/24 potassium chloride 20 mEq 20 meq PO ONCE 10/15/24 10/15/24 tablet,extended release(part/cryst) (Klor-Con M) sacubitril 24 mg-valsartan 26 mg 1 tab PO .Q12 10/15/24 10/15/24 tablet (Entresto) tamsulosin 0.4 mg capsule 0.8 mg PO ONCE 10/15/24 10/15/24 temazepam 30 mg capsule 30 mg PO ONCE 10/15/24 10/15/24 Previous Rx's ?Medication ?Instructions ?Recorded mupirocin 2 % topical ointment 1 applic topical BID cellulitis 3 09/28/23 weeks #22 grams urea 40 % topical cream 1 applic topical BID keratosis 30 09/28/23 days #60 applic Allergies Allergy/AdvReac Type Severity Reaction Status Date / Time No Known Allergies Allergy Verified 10/15/24 13:26 [facility] Disclaimer: The information contained in this section may have been updated after the patient was seen, as this information can be updated by other users. Medical History FH: cholecystectomy Inguinal hernia Kidney stones Shortness of breath Surgical History H/O hernia repair S/P placement of cardiac pacemaker Family History Father , 98 y/o Cancer stomach Diabetes Mother , 92 y/o Heart disease Social History Smoking Status: Never smoker alcohol intake: never substance use type: denies use current occupational status: retired Travel in the last 8 weeks?: Inside the [place] household members: spouse housing: house lives independently: Yes marital status: Have you lived/traveled outside US in past 30 days?: No Contact w/someone who lives/traveled outside US past 30 days?: No Exposure to someone with infectious disease in past 14 days?: No Do you have a fever (greater than 100.4 F or 38 C)?: No Have you tested positive for COVID-19?: No Exposed to someone with COVID-19 in past 14 days?: No Do you have a sore throat?: No Do you have a cough?: No Do you have any weakness?: No Do you have any diarrhea?: No Are you experiencing any unusual bleeding?: No Do you have any muscle aches/pain?: No Do you have any abdominal pain?: No Are you experiencing loss of taste or smell?: No Other Medical History Have you received the Pneumonia Vaccine: Yes ROS Obtained: Yes Systems reviewed as appropriate & no additional complaints except as documented Physical Exam General General appearance: alert and in no apparent distress Respiratory Respiratory exam: Present normal lung sounds bilaterally Cardiovascular Cardiovascular exam: Present regular rate Neurological Exam Neurological exam: Present alert and oriented X3 Medical Decision Making Medical Records Medical records reviewed: Yes I reviewed the patient's medical records. Screening: Per USPSTF and CDC recommendations, given the prevalence of disease in our region, it is our hospital?s policy to screen for HIV and viral Hepatitis for all patients aged 18 and over and those with ongoing risk factors. Perico Inquiry Pt receiving controlled substance: No Vital Signs: 10/15/24 15:04 10/15/24 15:19 10/15/24 18:01 Temperature 97.5 F L 97.5 F L 98.2 F Temperature Source Oral Oral Pulse Rate 60 80 Pulse Rate [Right] 60 Respiratory Rate 18 18 20 Blood Pressure 115/64 124/78 Blood Pressure [Right Arm] 115/64 Blood Pressure Mean [Right Arm] 81 Blood Pressure Source Automatic Cuff Blood Pressure Source [Right Arm] Automatic Cuff Blood Pressure Position Supine Blood Pressure Position [Right Arm] Supine 02 Sat by Pulse Oximetry 97 97 Oxygen Delivery Method Room Air Room Air Lab Data Lab results reviewed: Yes I reviewed the patient's lab results. Orders (Tests/Meds): ED MEDICATIONS Discontinued Medications Generic Name Dose Route Start Last Admin Trade Name Freq PRN Reason Stop Dose Admin Morphine Sulfate 4 mg 10/15/24 16:40 10/15/24 16:45 Morphine 2mg/Ml Syringe IM 10/15/24 16:41 4 mg ONCE ONE Administration ORDERS Category Date Time Status Testicular US [US Testicular] Stat Ultrasound 10/15/24 15:31 Completed Medical Decision Narrative: In summary patient is a 84-year-old male who presents to the emergency department for evaluation of right testicular pain. Patient is hemodynamically stable upon arrival, afebrile. Physical exam is remarkable for soft scrotal s kin with no induration or erythema, palpation of the testicle reveals what feels to be hydrocele but no palpable scrotal masses no palpable inguinal masses process clear and equal bilateral to the base without intention abdomen is soft distended with mild diffuse abdominal discomfort on palpation but no rebound or guarding or rigidity. Laboratory work imaging personally reviewed from today as well as his outpatient general surgery and gastroenterology visits. There is not appear to be a clear-cut definitive cause although the patient does have a fat-containing hernia in the right does not appear to be incarcerated and does not appear to be any stranding and gastroenterology recommended outpatient workup for large stool burden along with equalization in the right colon that may be pressing on his inguinal ligaments.. Differential diagnosis includes referred pain or pressure from constipation/fat-containing inguinal hernia versus testicular torsion. Initial workup will be conducted with testicular ultrasound. Initial interventions include IM morphine. Initial workup reviewed by me patient does have bilateral hydroceles but no other acute scrotal abnormality is seen and patient has no evidence of torsion. Upon repeat evaluation patient is actually pain-free currently and tolerating oral intake. Given this I have reassured the patient that he needs outpatient follow-up with general surgery if he has continued symptoms as well as with gastroenterology but given his hydroceles I am going to refer the patient to urology as well. He is to call the office tomorrow to make his appointment. If he has persistent new or worsening signs or symptoms he can return to the emergency department as needed. Critical Care Critical Care Time Critical Care Time: No
[2024-10-15 15:19] VITALS: BP 115/64; PULSE 60; RESP 18; TEMP 36.4; O2SAT 97
--- NOTE | 2024-10-15 15:31 | US_ITS ---
PROCEDURE INFORMATION: Exam: US Scrotum Exam date and time: 10/15/2024 3:35 PM Age: 84 years old Clinical indication: Scrotum pain; Additional info: Right testicle pain TECHNIQUE: Imaging protocol: Real-time ultrasound of the scrotum and contents with color Doppler and image documentation. COMPARISON: No relevant prior studies available. FINDINGS: Right testicle: The right testicle is normal in size, 11.7 x 3.7 x 2 cm. No masses, however there is a 2 mm intraparenchymal calcification, which is not particularly concerning at this time. Normal vascularity. Left testicle: Left testicle is normal in size, 12.5 x 3.8 x 2.6 cm. No masses are present, although there is a partially calcified exophytic structure adjacent to it, which is likely a clacified and chronically torsed appendage testis. Normal vascularity. Epididymides: The right epididymis appears normal, except for a exophytic cystic structure which is most likely a epididymal cyst. No masses. Left epididymis is normal, except for a 5 mm benign cyst. Scrotum/soft tissues: Moderate right hydrocele with internal debris, but without septations. There is a 5 mm stone in the right scrotal soft tissues, which appears to be within a cylindrical strucutre. Moderate left hydrocele with internal debris, but no septations. Small right fat containing inguinal/scrotal hernia is present. IMPRESSION: 1. Moderate right hydrocele with internal debris, but without septations. 2. There is a 5 mm stone in the right scrotal soft tissues, which appears to be within a cylindrical strucutre. Most probably a phlebolith. 3. Moderate left hydrocele with internal debris, but no septations. 4. Small right fat containing inguinal/scrotal hernia is present. 5. No acute pathology in the testicles or epididymi.
--- NOTE | 2024-10-15 15:33 | PC.NURSE ---
Gave pt warm blanket.
--- NOTE | 2024-10-15 15:43 | PC.NURSE ---
pt transported to ultrasound
--- NOTE | 2024-10-15 16:07 | PC.NURSE ---
pt back in room from ultrasound.
--- NOTE | 2024-10-15 16:33 | PC.NURSE ---
pt rounding completed and pt is requesting morphine, ER PA made aware
[2024-10-15] MEDS: MORPHINE 2MG/ML SYRINGE 4 MG IM (16:45)
[2024-10-15 18:01] VITALS: BP 124/78; PULSE 80; RESP 20; TEMP 36.8; O2SAT 98
== END 2024-10-15 18:02 | disposition home or self-care (01) ==
PROVIDERS: Emergency Provider Emergency Medicine; PCP Family Medicine
DX: K40.90 Unilateral inguinal hernia, without obstruction or gangrene, not specified as recurrent (principal); N50.811 Right testicular pain; N43.3 Hydrocele, unspecified
CPT/HCPCS: 76870; 96372; 99284; J2270

== ENCOUNTER 2024-10-29 12:26 | Outpatient (CLI) | payer MEDICARE, BC, SELFPAY ==
--- NOTE | 2024-10-29 12:27 | XR_ITS ---
FINAL REPORT CLINICAL HISTORY: poss stones COMPARISON: None FINDINGS: ABDOMEN SINGLE VIEW / KUB A single view of the abdomen was obtained with a coned down view of the pelvis. There is a nonspecific bowel gas pattern. There is no significant stool burden. There are no abnormally dilated loops of small bowel. No abnormal calcification is identified. IMPRESSION: No acute process. Reviewed, Interpreted and Dictated by Kleber Aceves MD Transcribed by Iman Lux Authenticated and [facility]
--- OUTSIDE RECORDS SUMMARY | 2024-10-29 12:28 | XMS_ITS | Data Portability ---
Author Organization [facility] ADMIN Address [address] [place] [address] Care Team Providers Care Personnel Training Officer Name Role Phone GALE BE Primary Care Provider [phone] Assessment No assessment recorded. Plan of Treatment Reminders Order Date Submit Date Provider Last Modified By Organization Details Last Modified Time Details Appointments None recorded. Lab None recorded. Referral None recorded. Procedures None recorded. Surgeries None recorded. Imaging None recorded. Medication Orders methocarbam ol 500 mg tablet [address] [place] [address]/Ph[id number], [address] [place], [address], 15:19:20 Patient TargetsNo targets recorded. Patient InstructionsNo instructions recorded. Reason for Referral None Reported. Results Created Date Observation Date Name Description Value Unit Range Abnormal Flag Note LastModifiedBy Organization Detail LastModifiedTime 01/16/20 24 10/11/2023 CT, head + brain , w/o contr ast No observ ation record ed. [email or web address] Not Available 01/16 09:31:41 Result Notes None recorded. Problems Name Problem SNOMED Code Status Onset Date Resolution Date Notes Provider Name and Address Organization Details Recorded Time Headache 53063212 Active 2023 Adri paula, [facility] & [place] 4 14:40:09 New daily persistent headache [id number] 05 Active 2023 Lana Pollard, DO [address], [place], [address] , [facility] & [place] 4 15:10:23 Tension-ty pe headache 367445305 Active 2023 Lana Atul, DO [address], [place], [address] , [facility] [place] & [place] 15:16:09 Problem Notes None recorded. Procedures Surgical History Date Name Laterality Status Provider Name and Address Organization Details Recorded Time cardiac pacemaker procedure completed Adri CALLEJAS - [facility] & [place] 12/06/2023 14:41:59 Cholecystectomy completed Adri Ivan CALLEJAS - [facility] & [place] 12/06/2023 14:42:07 Fragmenting of kidney stone completed Adri Dewey [facility] - [facility] & [place] 12/06/2023 14:42:13 hernia repair completed Adri Dewey [facility] & [place] 12/06/2023 14:42:21 Imaging Results None recorded. Procedure Notes None recorded. Medical Equipment None Reported. Allergies No known drug allergies Medications Name Sig Start Date Stop Date Status Note LastModified by Organization Details LastModified Time Miralax 17 gram oral powder packet Take by oral route as directed. 12/05 completed Not Available Not Available Not Available furosemide 40 mg tablet TAKE 1 TABLET BY MOUTH EVERY DAY active Not Available Not Available No t Available atorvastati n 40 mg tablet TAKE 1 TABLET BY MOUTH EVERY DAY active Not Available Not Available No t Available methocarbam ol 500 mg tablet TAKE 1 TABLET BY MOUTH TWICE A DAY active Not Available Not Available No t Available metformin 500 mg tablet TAKE 1 TABLET BY MOUTH TWICE A DAY TO IMPROVE DIABETES active Not Available Not Available No t Available carvedilol 6.25 mg tablet TAKE 1 TABLET BY MOUTH TWICE A DAY active Not Available Not Available No t Available prednisone 10 mg tablet 12/05 completed [...] Not Available Not Available No t Available potassium chloride ER 20 mEq tablet,exte nded release(par t/cryst) TAKE 1 TABLET BY MOUTH TWICE A DAY active Not Available Not Available No t Available tamsulosin 0.4 mg capsule TAKE 2 CAPSULES BY MOUTH EVERY DAY active Not Available Not Available No t Available temazepam 30 mg capsule TAKE 1 CAPSULE BY MOUTH AT BEDTIME active Not Available Not Available No t Available oseltamivir 75 mg capsule 12/05 completed Not Available Not Available Not Available mupirocin 2 % topical ointment APPLY TO AFFECTED AREA TWICE A DAY FOR 3 WEEKS FOR CELLULITI S 12/05 completed Not Available Not Available Not Available hydrocodone 10 mg-chlorphe niramine 8 mg/5 mL oral susp extend.rel 12hr take 2.5 ml (1/2 teaspoonf ul) by mouth 1-2 times daily as needed for cough active Not Available Not Available No t Available albuterol sulfate HFA 90 mcg/actuati on aerosol inhaler INHALE 2 PUFFS EVERY 6 HOURS NEEDED FOR WHEEZING active Not Available Not Available No t Available finasteride 5 mg tablet TAKE 1 TABLET BY MOUTH EVERY DAY active Not Available Not Available No t Available amoxicillin 875 mg-potassiu m clavulanate 125 mg tablet TAKE 1 TABLET BY MOUTH TWICE A DAY WITH FOOD X 1 WEEK TO TREAT RESPIRATO RY INFECTION active Not Available Not Available No t Available metoprolol tartrate 25 mg tablet TAKE 1 TABLET BY MOUTH TWICE A DAY 12/05 completed Not Available Not Available Not Available budesonide- formoterol HFA 80 mcg-4.5 mcg/actuati on aerosol inhaler INHALE 2 PUFFS TWICE A DAY active Not Available Not Available No t Available Eliquis 5 mg tablet TAKE 1 TABLET BY MOUTH EVERY 12 HOURS active Not Available Not Available No t [...] blood by Pulse oximetry Heart rate Systolic And Diastolic Provider Name and Address Organization Details Last Updated DateTime 4 151220. 83 g 38.7 kg/m2 182.88 cm 97 % 97 % 88 /min 110/68 mm[Hg] Adri Love [facility] [place] 14:50:12 Social History Question Answer Notes LastModified by Organizat ion Details LastModified Time Tobacco Smoking Status Never Smoker Adri Love chai, [facility] & [place] 12/06/2023 14:41:16 What Is Your Level Of [...] available 2023 14:40:47 Medical History Condition Response Diabetes Y Heart Problems Y Atrial Fibrillation Y Kidney Stones Y Ear or Hearing Problems Y Congestive Heart Failure (CHF) Y Pacemaker Y Heart Disease Y Sinusitis Y Headaches Y Hypertension Y Mental Illness Y Past Encounters Encounter ID Performer Location Encounter Start Date Encounter Closed Date Diagnosis/Indication Diagnosis SNOMED-CT Code Diagnosis ICD10 Code Diagnosis Note [id number] DO BOAZ [facility] [address] [facility],[address] [place] [address] 12/06/2023 14:34:12 12/06/2023 15:31:05 Tension-type headache 131775216 G44.209 New daily headaches for the last [...] Member ID Myers Member ID Guarantor Name 10/20/2024 2 [place] [id number] Kuldeep Leroy [id number] Kuldeep Leroy 10/20/2024 1 [place] Kuldeep Leroy [id number] Kuldeep Leroy Notes Date Note Type Note Provider Name and Address Organization Details Recorded Time 12/06/2023 text/html 83 y/o right segal ded male here for neurologic consultation requested by Dr Be regarding headaches. Kuldeep is accompanied by his today. Kuldeep reports having a constant headache for the last two months. It started as a dull headache and gradually got worse.He went to [facility] on 10/11/23 due to the headache. [...] last couple of weeks. Lana Pollard, DO [address], [place], [address], [facility] - [place] & [place] 12/06/2023 15:41:45
--- OUTSIDE RECORDS SUMMARY | 2024-10-29 12:28 | XMS_ITS | Data Portability ---
Author Organization JÚNIOR - JERRY Abraham ANASCO CLOSED Address [address] [facility] [address] [place] [address] Assessment Encounter Date Assessment Date Assessment LastModified by Organization Details LastModified Time 03/02/2017 03/02/2017 We will treat initially with Lotrisone but he does desire circumcision later this year. Not available 03/05/2017 20:56:03 06/06/2017 06/06/2017 SURGERY [...] 19:53:19 07/06/2017 07/06/2017 Circumcision is healing appropriately. [email or web address] Not available 07/09/2017 21:20:46 01/11/2018 01/11/2018 He is doing well following circumcision. He has minimal lower urinary tract symptoms and benign GINNY. Annual follow-up. [email or web address] Not available 01/13/2018 10:13:16 11/08/2018 11/08/2018 Lower urinary tr act symptoms stable. Annual follow-up. [email or web address] Not available 12/02/2018 18:33:46 Plan of Treatment Reminders Order Date Submit Date Provider Last Modified By Organization Details Last Modified Time Details Appointments None recorded. Lab urinalysis , dipstick, auto 2018 019 [email or web address] 4 [facility] Extended Services With [address], [place], [address], 9 18:33:47 urinalysis , dipstick, auto 2017 018 [email or web address] 4 [facility] With [address], [place], [address], 8 10:13:17 urinalysis , dipstick, auto 2017 018 [email or web address] 4 [facility] With [address], [place], [address], 8 21:20:01 urinalysis , dipstick, auto 2016 017 [email or web address] 4 [facility] With [address], [place], [address], 7 16:34:19 Referral None recorded. Procedures None recorded. Surgeries circumcisi on (SURG) [email or web address] [facility], [address] [facility], [facility] [address], [place], [address], 7 09:30:00 Imaging None recorded. Medication Orders [place] 7.5 mg-325 mg tablet 2017 018 [email or web address] 4 Not available 8 14:03:30 clotrimazo le-betamet hasone 1 %-0.05 % topical cream 2016 017 INTERFACE [id number], [address] [place], [address], 7 16:34:21 Patient TargetsNo targets recorded. Patient Instructions Encounter Date Encounter Id Patient Instructions Last Modified By Organization Details Last Modified Time 03/02/2017 [id number] learning about healthy weight SUE Not available 03/04/2017 16:02:43 balanitis: care instructions SUE Not available 03/04/2017 16:02:18 11/08/2018 [id number] healthy together Not availa ble 12/02/2018 18:33:47 Reason for Referral None Reported. Results Created Date Observation Date Name Description Value Unit Range Abnormal Flag Note LastModifiedBy Organization Detail LastModifiedTime 11/09/19 19 11/08/2018 urina lysis , dipst ick, auto Unknown Analyte Yellow Not Available [facility] Extended Services With [address] [place], [address], 11/08/2018 16:10:42 11/09/19 19 11/08/2018 urina lysis , dipst ick, auto Unknown Analyte Clear Not Available [facility] With [address] [place], [address], 11/08/2018 16:10:42 11/09/19 19 11/08/2018 urina lysis , dipst ick, auto Unknown Analyte 1.020 Not Available [facility] With [address] [place], [address], 11/08/2018 16:10:42 11/09/19 19 11/08/2018 urina lysis , dipst ick, auto Unknown Analyte 1.003 - 1.035 Not Available [facility] Extended Services With [address] [place], [address], 11/08/2018 16:10:42 11/09/19 19 11/08/2018 urina lysis , dipst ick, auto Unknown Analyte 6.0 Not Available [facility] With [address] [place], [address], 11/08/2018 16:10:42 11/09/19 19 11/08/2018 urina lysis , dipst ick, auto Unknown Analyte 5.0 - 8.0 Not Available [facility] Extended Services With [address] [place], [address], 11/08/2018 16:10:42 11/09/19 19 11/08/2018 urina lysis , dipst ick, auto Unknown Analyte Negati ve Not Available [facility] Extended Services With [address] [place], [address], 11/08/2018 16:10:42 11/09/19 19 11/08/2018 urina lysis , dipst ick, auto Unknown Analyte Negati ve Not Available [facility] Extended Services With [address] [place], [address], 11/08/2018 16:10:42 11/09/19 19 11/08/2018 urina lysis , dipst ick, auto Unknown Analyte Negati ve Not Available [facility] Services With [address], [place], [address], 11/08/2018 16:10:42 11/09/19 19 11/08/2018 urina lysis , dipst ick, auto Unknown Analyte Negati ve Not Available [facility] Extended Services With [address] [place], [address], 11/08/2018 16:10:42 11/09/19 19 11/08/2018 urina lysis , dipst ick, auto Unknown Analyte Negtiv e Not Available [facility] Extended Services With [address] [place], [address], 11/08/2018 16:10:42 11/09/19 19 11/08/2018 urina lysis , dipst ick, auto Unknown Analyte Negati ve - Trace Not Available [facility] Services With [address] [place], [address], 11/08/2018 16:10:42 11/09/19 19 11/08/2018 urina lysis , dipst ick, auto Unknown Analyte Normal Not Available [facility] With [address] [place], [address], 11/08/2018 16:10:42 11/09/19 19 11/08/2018 urina lysis , dipst ick, auto Unknown Analyte Normal Not Available [facility] With [address] [place], [address], 11/08/2018 16:10:42 11/09/19 19 11/08/2018 urina lysis , dipst ick, auto Unknown Analyte Negati ve Not Available [facility] [address] [place], [address], 11/08/2018 16:10:42 11/09/19 19 11/08/2018 urina lysis , dipst ick, auto Unknown Analyte Negati ve Not Available [facility] Extended Services With [address] [place], [address], 11/08/2018 16:10:42 11/09/19 19 11/08/2018 urina lysis , dipst ick, auto Unknown Analyte Normal Not Available [facility] With [address] [place], [address], 11/08/2018 16:10:42 11/09/19 19 11/08/2018 urina lysis , dipst ick, auto Unknown Analyte Normal - 1mg/dl Not Available [facility] Extended Services With [address] [place], [address], 11/08/2018 16:10:42 11/09/19 19 11/08/2018 urina lysis , dipst ick, auto Unknown Analyte Negati ve Not Available [facility] Extended Services With [address] [place], [address], 11/08/2018 16:10:42 11/09/19 19 11/08/2018 urina lysis , dipst ick, auto Unknown Analyte Negati ve Not Available [facility] Services With [address] [place], [address], 11/08/2018 16:10:42 11/09/19 19 11/08/2018 urina lysis , dipst ick, auto Unknown Analyte Negati ve Not Available [facility] Services With [address] [place], [address], 11/08/2018 16:10:42 11/09/19 19 11/08/2018 urina lysis , dipst ick, auto Unknown Analyte Negati ve Not Available [facility] Services With [address] [place], [address], 11/08/2018 16:10:42 11/09/19 19 11/08/2018 urina lysis , dipst ick, auto Unknown Analyte Clean Catch Not Available [facility] Extended Services With [address], [address], 11/08/2018 16:10:42 11/09/19 19 11/08/2018 urina lysis , dipst ick, auto Unknown Analyte Automa ya Not Available [facility] Extended Services With [address] [place], [address], 11/08/2018 16:10:42 01/12/20 18 01/11/2018 urina lysis , dipst ick, auto Unknown Analyte Yellow Not Available [facility] With [address] [place], [address], 01/11/2018 14:33:40 01/12/20 18 01/11/2018 urina lysis , dipst ick, auto Unknown Analyte Clear Not Available [facility] With [address] [place], [address], 01/11/2018 14:33:40 01/12/20 18 01/11/2018 urina lysis , dipst ick, auto Unknown Analyte 1.015 Not Available [facility] With [address] [place], [address], 01/11/2018 14:33:40 01/12/20 18 01/11/2018 urina lysis , dipst ick, auto Unknown Analyte 6.5 Not Available [facility] With [address] [place], [address], 01/11/2018 14:33:40 01/12/20 18 01/11/2018 urina lysis , dipst ick, auto Unknown Analyte Negati ve Not Available [facility] Extended Services With [address] [place], [address], 01/11/2018 14:33:40 01/12/20 18 01/11/2018 urina lysis , dipst ick, auto Unknown Analyte Negati ve Not Available [facility] Extended Services With [address] [place], [address], 01/11/2018 14:33:40 01/12/20 18 01/11/2018 urina lysis , dipst ick, auto Unknown Analyte Negtiv e Not Available [facility] Extended Services With [address] [place], [address], 01/11/2018 14:33:40 01/12/20 18 01/11/2018 urina lysis , dipst ick, auto Unknown Analyte Normal Not Available [facility] With [address] [place], [address], 01/11/2018 14:33:40 01/12/20 18 01/11/2018 urina lysis , dipst ick, auto Unknown Analyte Negati ve Not Available [facility] Services With [address] [place], [address], 01/11/2018 14:33:40 01/12/20 18 01/11/2018 urina lysis , dipst ick, auto Unknown Analyte Normal Not Available [facility] With [address] [place], [address], 01/11/2018 14:33:40 01/12/20 18 01/11/2018 urina lysis , dipst ick, auto Unknown Analyte Negati ve Not Available [facility] Extended Services With [address] [place], [address], 01/11/2018 14:33:40 01/12/20 18 01/11/2018 urina lysis , dipst ick, auto Unknown Analyte Negati ve Not Available [facility] Extended Services With [address] [place], [address], 01/11/2018 14:33:40 01/12/20 18 01/11/2018 urina lysis , dipst ick, auto Unknown Analyte Clean Catch Not Available [facility] Extended Services With [address] [place], [address], 01/11/2018 14:33:40 01/12/20 18 01/11/2018 urina lysis , dipst ick, auto Unknown Analyte Automa ya Not Available [facility] Services With [address] [place], [address], 01/11/2018 14:33:40 07/06/19 18 07/06/2017 urina lysis , dipst ick, auto Unknown Analyte Yellow Not Available [facility] With [address] [place], [address], 07/06/2017 14:00:01 07/06/19 18 07/06/2017 urina lysis , dipst ick, auto Unknown Analyte Clear Not Available [facility] With [address] [place], [address], 07/06/2017 14:00:01 07/06/19 18 07/06/2017 urina lysis , dipst ick, auto Unknown Analyte 1.025 Not Available [facility] With [address] [place], [place], [address], 07/06/2017 14:00:01 07/06/19 18 07/06/2017 urina lysis , dipst ick, auto Unknown Analyte 5.0 Not Available [facility] With [address] [place], [address], 07/06/2017 14:00:01 07/06/19 18 07/06/2017 urina lysis , dipst ick, auto Unknown Analyte Negati ve Not Available [facility] Extended Services With [address] [place], [address], 07/06/2017 14:00:01 07/06/19 18 07/06/2017 urina lysis , dipst ick, auto Unknown Analyte Negati ve Not Available [facility] Extended Services With [address] [place], [address], 07/06/2017 14:00:01 07/06/19 18 07/06/2017 urina lysis , dipst ick, auto Unknown Analyte Negtiv e Not Available [facility] Extended Services With [address], [address], 07/06/2017 14:00:01 07/06/19 18 07/06/2017 urina lysis , dipst ick, auto Unknown Analyte Normal Not Available [facility] With [address] [place], [address], 07/06/2017 14:00:01 07/06/19 18 07/06/2017 urina lysis , dipst ick, auto Unknown Analyte Negati ve Not Available [facility] Extended Services With [address] [place], [address], 07/06/2017 14:00:01 07/06/19 18 07/06/2017 urina lysis , dipst ick, auto Unknown Analyte Normal Not Available [facility] With [address] [place], [address], 07/06/2017 14:00:01 07/06/19 18 07/06/2017 urina lysis , dipst ick, auto Unknown Analyte Negati ve Not Available [facility] Extended Services With [address] [place], [address], 07/06/2017 14:00:01 07/06/19 18 07/06/2017 urina lysis , dipst ick, auto Unknown Analyte Negati ve Not Available [facility] Extended Services With [address] [place], [address], 07/06/2017 14:00:01 07/06/19 18 07/06/2017 urina lysis , dipst ick, auto Unknown Analyte Clean Catch Not Available [facility] Extended Services With [address] [place], [address], 07/06/2017 14:00:01 07/06/19 18 07/06/2017 urina lysis , dipst ick, auto Unknown Analyte Automa ya Not Available [facility] Extended Services With [address] [place], [address], 07/06/2017 14:00:01 03/02/20 17 03/02/2017 urina lysis , dipst ick, auto Unknown Analyte Yellow Not Available [facility] With [address] [place], [address], 03/02/2017 16:31:24 03/02/20 17 03/02/2017 urina lysis , dipst ick, auto Unknown Analyte Clear Not Available [facility] With [address] [place], [address], 03/02/2017 16:31:24 03/02/20 17 03/02/2017 urina lysis , dipst ick, auto Unknown Analyte 1.020 Not Available [facility] With [address] [place], [address], 03/02/2017 16:31:24 03/02/20 17 03/02/2017 urina lysis , dipst ick, auto Unknown Analyte 5.0 Not Available [facility] With [address] [place], [address], 03/02/2017 16:31:24 03/02/20 17 03/02/2017 urina lysis , dipst ick, auto Unknown Analyte Negati ve Not Available [facility] Extended Services With [address] [place], [address], 03/02/2017 16:31:24 03/02/20 17 03/02/2017 urina lysis , dipst ick, auto Unknown Analyte Negati ve Not Available [facility] Extended Services With [address] [place], [address], 03/02/2017 16:31:24 03/02/20 17 03/02/2017 urina lysis , dipst ick, auto Unknown Analyte Negtiv e Not Available [facility] Extended Services With [address] [place], [address], 03/02/2017 16:31:24 03/02/20 17 03/02/2017 urina lysis , dipst ick, auto Unknown Analyte Normal Not Available [facility] With [address] [place], [address], 03/02/2017 16:31:24 03/02/20 17 03/02/2017 urina lysis , dipst ick, auto Unknown Analyte Negati ve Not Available [facility] Extended Services With [address] [place], [address], 03/02/2017 16:31:24 03/02/20 17 03/02/2017 urina lysis , dipst ick, auto Unknown Analyte Normal Not Available [facility] With [address] [place], [address], 03/02/2017 16:31:24 03/02/20 17 03/02/2017 urina lysis , dipst ick, auto Unknown Analyte Negati ve Not Available [facility] Extended Services With [address] [place], [address], 03/02/2017 16:31:24 03/02/20 17 03/02/2017 urina lysis , dipst ick, auto Unknown Analyte Negati ve Not Available [facility] Extended Services With [address] [place], [address], 03/02/2017 16:31:24 03/02/20 17 03/02/2017 urina lysis , dipst ick, auto Unknown Analyte Clean Catch Not Available [facility] Extended Services With [address] [place], [address], 03/02/2017 16:31:24 03/02/20 17 03/02/2017 urina lysis , dipst ick, auto Unknown Analyte Automa ya Not Available [facility] Extended Services With [address] [place], [address], 03/02/2017 16:31:24 Result Notes None recorded. Problems Name Problem SNOMED Code Status Onset Date Resolution Date Notes Provider Name and Address Organization Details Recorded Time Burn of penis 790964161 Active 017 Gisselle Prajapati [facility] 03/02/2017 16:27:43 Problem Notes None recorded. Procedures Surgical History Date Name Laterality Status Provider Name and Address Organization Details Recorded Time [facility]/02/2017 16:28:41 [facility] Stones [facility] 03/02/2017 16:28:44 Imaging Results None recorded. Procedure [...] Not Available Not Available Not Avai lable [place] 7.5 mg-325 mg tablet Take 1 tablet [...] Body mass index (BMI) Body weight Systolic And Diastolic Provider Name and Address Organization Details Last Updated DateTime 07/06/2017 182.88 cm 35.3 kg/m2 269306.02 g 140/88 mm[Hg] [facility] 07/06/2017 13:59:32 Date Recorded Body height Body mass index (BMI) Body weight Systolic And Diastolic Provider Name and Address Organization Details Last Updated DateTime 11/08/2018 182.88 cm 35.3 kg/m2 961563.02 g 138/80 mm[Hg] Gisselle Prajapati [facility] 11/08/2018 16:09:50 Date Recorded Body height Body mass index (BMI) Body weight Systolic And Diastolic Provider Name and Address Organization Details Last Updated DateTime 01/11/2018 182.88 cm 35.3 kg/m2 266687.02 g 138/80 mm[Hg] [facility] 01/11/2018 14:32:59 Date Recorded Body height Body mass index (BMI) Body weight Systolic And Diastolic Provider Name and Address Organization Details Last Updated DateTime 03/02/2017 182.88 cm 35.3 kg/m2 863157.02 g 120/68 mm[Hg] Gisselle Prajapati [facility] 03/02/2017 16:21:30 Social History Question Answer Notes LastModified by Organizat ion Details LastModified Time Tobacco Smoking Status Never Smoker [facility] 03/02/2017 16:28:20 How Much Tobacco Do You Chew? None Information not available 11/08/2018 Marital Status [facility] Informatio n not available 03/02/2017 What Was [...] SNOMED-CT Code Diagnosis ICD10 Code Diagnosis Note [id number] LARRY MICHAELS MD [facility] [address] [address] 03/02/2017 16:20:25 03/06/2017 14:55:57 Balanitis [id number] N48.1 [id number] LARRY MICHAELS MD SURGERY SCHEDULE [address] [place] [address] 06/06/2017 10:56:46 06/06/2017 10:58:56 Balanitis 90577974 N48.1 [id number] LARRY MICHAELS MD [facility] [address] [address] 07/06/2017 13:31:15 07/12/2017 15:47:16 Balanitis [id number] N48.1 [id number] LARRY MICHAELS MD [facility] [address] [address] 01/11/2018 13:41:25 01/15/2018 07:57:24 Benign prostatic hyperplasia with outflow obstruction [id number] N40.1 [id number] LARRY MICHAELS MD [facility] [address] [address] 11/08/2018 14:52:38 12/03/2018 11:11:32 Benign prostatic hyperplasia with outflow obstruction [id number] N40.1 Health Concerns Section Related Observation LastModified by Organization Detai ls LastModified Time None Recorded Concern Status LastModified by Organization Details LastModified Time None Recorded Advance Directives Directive None Recorded Payers Insurance Date Sequence Insurance Name Policy Number Policy Myers Covered Member ID Myers Member ID Guarantor Name 12/03/2018 2 [place] [id number] Kuldeep Leroy [id number] Kuldeep Leroy 11/05/2018 1 [place] Kuldeep Leroy [id number] Kuldeep Leroy 03/03/2017 1 *SELF PAY* Stephanie Leroy Notes Date Note Type Note Provider Name and Address Organization Details Recorded Time 03/02/2017 text/html 76-year-old male in the office for consultation and evaluation of recent recurrent balanitis. He has tried eube-esv-gigvsoz antifungal cream with some success. He is able to reduce his foreskin without significant problems. He does have BPH and takes Flomax 0.8 mg daily and finasteride. He voids every 2-3 hours with nocturia twice nightly. He denies hesitancy, urgency, hematuria, dysuria. LARRY MICHAELS MD [address] [place] [address], [address], [facility] 03/05/2017 20:57:09 07/06/2017 text/html 76-year-old male in the office for follow-up evaluation after recent circumcision for recurrent balanitis. He is doing well. He believes the area has healed after circumcision. He denies hematuria or dysuria. LARRY MICHAELS MD [address] [place] [address], [address], [facility] 07/09/2017 21:21:11 01/11/2018 text/html 77-year-old male in the office for follow-up evaluation of recurrent balanitis treated with circumcision. He states it has healed appropriately. He denies daytime frequency. He has nocturia twice nightly. No hematuria or dysuria. LARRY MICHAELS MD [address] [place] [address], [address], [facility] 01/13/2018 10:14:53 11/08/2018 text/html 78-year-old male in the office for follow-up evaluation of benign prostatic hyperplasia and history of balanitis status post circumcision. He denies irritative voiding symptoms. He denies hematuria or dysuria. He has nocturia 1-2 times nightly. He denies daytime frequency. LARRY MICHAELS MD [address] [place] [address], [address], [facility] 12/02/2018 18:34:17
--- NOTE | 2024-10-29 13:00 | US_ITS ---
FINAL REPORT TECHNIQUE: Ultrasound images of the kidneys and bladder were obtained. CLINICAL HISTORY: .recent renal pain FINDINGS: The right kidney measures 11.7 cm in length. It is normal in echogenicity. There is no hydronephrosis. There is an echogenic shadowing focus in the upper pole of the right kidney, may represent a stone. The left kidney measures 11.5 cm in length. It is normal in echogenicity. There is no hydronephrosis. IMPRESSION: Possible right renal stone. Reviewed, Interpreted and Dictated by Kleber Aceves MD Transcribed by Candace Palencia Authenticated and [facility]
== END 2024-10-29 23:59 | disposition home or self-care (01) ==
LOC: RAD 12:27
PROVIDERS: PCP Family Medicine; Visit Provider Urology
DX: R93.421 Abnormal radiologic findings on diagnostic imaging of right kidney (principal); N43.3 Hydrocele, unspecified
CPT/HCPCS: 74018; 76770

== ENCOUNTER 2024-10-31 18:06 | Emergency (ER) | payer MEDICARE, BC, SELFPAY ==
[2024-10-31] VITALS (8 sets, daily range): BP systolic 121–156; BP diastolic 70–86; PULSE 59–75; RESP 12–16; TEMP 36.6–36.8; O2SAT 98–100; BMI 38.0
--- OUTSIDE RECORDS SUMMARY | 2024-10-31 18:14 | XMS_ITS | Data Portability ---
Author Organization [facility] & [facility] ADMIN Address [address] [place] [id number] Care Team Providers Care Station Cashier Name Role Phone GALE BE Primary Care Provider Assessment No assessment recorded. Plan of Treatment Reminders Order Date Submit Date Provider Last Modified By Organization Details Last Modified Time Details Appointments None recorded. Lab None recorded. Referral None recorded. Procedures None recorded. Surgeries None recorded. Imaging None recorded. Medication Orders methocarbam ol 500 mg tablet [address] [place] [address]/[id number], [address] [place], [address], 15:19:20 Patient TargetsNo targets recorded. Patient InstructionsNo instructions recorded. Reason for Referral None Reported. Results Created Date Observation Date Name Description Value Unit Range Abnormal Flag Note LastModifiedBy Organization Detail LastModifiedTime 01/16/20 24 10/11/2023 CT, head + brain , w/o contr ast No observ ation record ed. [email or web address] Not Available 01/16 09:31:41 Result Notes None recorded. Problems Name Problem SNOMED Code Status Onset Date Resolution Date Notes Provider Name and Address Organization Details Recorded Time Headache 74123587 Active 2023 Adri paula, [facility] & [place] 4 14:40:09 New daily persistent headache 5265219450760 05 Active 2023 Lana Pollard, DO [address], [place], [address] , [facility] & [place] 4 15:10:23 Tension-ty pe headache 078048405 Active 2023 Lana Atul, DO [address], [place], [address] , [facility] - [place] & [place] 15:16:09 Problem Notes None recorded. Procedures Surgical History Date Name Laterality Status Provider Name and Address Organization Details Recorded Time cardiac pacemaker procedure completed Adri CALLEJAS - [facility] & [place] 12/06/2023 14:41:59 Cholecystectomy completed Adri Ivan CALLEJAS - [facility] & [place] 12/06/2023 14:42:07 Fragmenting of kidney stone completed Adri Dewey [facility] - [facility] & [place] 12/06/2023 14:42:13 hernia repair completed Adri Dewey [facility] - [facility] & [place] 12/06/2023 14:42:21 Imaging Results None recorded. Procedure [...] Address Organization Details Last Updated DateTime 4 751329. 83 g 38.7 kg/m2 182.88 cm 97 % 97 % 88 /min 110 mm[Hg] 68 mm[Hg] Adri CALLEJAS [facility] & [place] 14:50:12 Social History Question Answer Notes LastModified by [employer] Details LastModified Time Tobacco Smoking Status Never Smoker Adri Love chai, [facility] & [place] 12/06/2023 14:41:16 What Is Your Level Of Caffeine Consumption? Moderate Information not available 12/06/2023 What Is Your Relationship Status? Lives With Information not available 12/06/2023 Are You Currently In School? No Diploma Information not available 12/06/2023 Sex: Unknown Functional Status Question Answer Note LastModified by [employer] Details LastModified Time Do you use any [...] Heart Disease Y Sinusitis Y Headaches Y Mental Illness Y Hypertension Y Past Encounters Encounter ID Performer Location Encounter Start Date Encounter Closed Date Diagnosis/Indication Diagnosis SNOMED-CT Code Diagnosis ICD10 Code Diagnosis Note [id number] Lana Pollard DO [facility] [address] [facility],[address] [place] [address] 12/06/2023 14:34:12 12/06/2023 15:31:05 Tension-type headache 794717083 G44.209 New daily headaches for the last [...] OF [place] (MEDICARE SUPPLEMENT) [id number] Kuldeep Leroy [id number] Kuldeep Leroy 10/20/2024 1 [place] (MEDICARE) Kuldeep Leroy [id number] Kuldeep Leroy Notes Date Note Type Note Provider Name and Address Organization Details Recorded Time 12/06/2023 text/html 83 y/o right segal ded male here for neurologic consultation requested by Dr Be regarding headaches. Kuldeep is accompanied by his today. Kuldeep reports having a constant headache for the last two months. It started as a dull headache and gradually got worse.He went to [facility] on 10/11/23 due to the headache. [...] last couple of weeks. Lana Pollard, DO [address], [place], [address], [facility] - [facility] - [place] & [place] 12/06/2023 15:41:45
--- OUTSIDE RECORDS SUMMARY | 2024-10-31 18:15 | XMS_ITS | Data Portability ---
Author Organization JÚNIOR - JERRY Abraham [place] [facility] Address [address] [place] [address] Assessment Encounter Date Assessment Date Assessment LastModified by Organization Details LastModified Time 03/02/2017 03/02/2017 We will treat initially with Lotrisone but he does desire circumcision later this year. [email or web address] Not available 03/05/2017 20:56:03 06/06/2017 06/06/2017 SURGERY [...] 19:53:19 07/06/2017 07/06/2017 Circumcision is healing appropriately. [email or web address] Not available 07/09/2017 21:20:46 01/11/2018 01/11/2018 He is doing well following circumcision. He has minimal lower urinary tract symptoms and benign GINNY. Annual follow-up. [email or web address] Not available 01/13/2018 10:13:16 11/08/2018 11/08/2018 Lower urinary tr act symptoms stable. Annual follow-up. Not available 12/02/2018 18:33:46 Plan of Treatment Reminders Order Date Submit Date Provider Last Modified By Organization Details Last Modified Time Details Appointments None recorded. Lab urinalysis , dipstick, auto 2018 019 [email or web address] 4 [facility] [address], [place], [address], 9 18:33:47 urinalysis , dipstick, auto 2017 018 [email or web address] 4 [facility] [address], [place], [address], 8 10:13:17 urinalysis , dipstick, auto 2017 018 [email or web address] 4 [facility] With [address], [place], [address], 8 21:20:01 urinalysis , dipstick, auto 2016 017 [email or web address] 4 [facility] [address], [place], [address], 7 16:34:19 Referral None recorded. Procedures None recorded. Surgeries circumcisi on (SURG) 2016 [email or web address] [facility], [address] [facility], [facility] [address], [place], [address], 7 09:30:00 Imaging None recorded. Medication Orders [facility] 7.5 mg-325 mg tablet 2017 018 [email or web address] 4 Not available 8 14:03:30 clotrimazo le-betamet hasone 1 %-0.05 % topical cream 2016 017 INTERFACE [id number], [address] [place], [address], 7 16:34:21 Patient TargetsNo targets recorded. Patient Instructions Encounter Date Encounter Id Patient Instructions Last Modified By Organization Details Last Modified Time 03/02/2017 [id number] learning about healthy weight SUE Not available 03/04/2017 16:02:43 balanitis: care instructions SUE Not available 03/04/2017 16:02:18 11/08/2018 [id number] healthy together [email or web address] Not availa ble 12/02/2018 18:33:47 Reason for Referral None Reported. Results Created Date Observation Date Name Description Value Unit Range Abnormal Flag Note LastModifiedBy Organization Detail LastModifiedTime 11/09/19 19 11/08/2018 urina lysis , dipst ick, auto Unknown Analyte Yellow Not Available [facility] With [address] [place], [address], 11/08/2018 16:10:42 11/09/19 19 11/08/2018 urina lysis , dipst ick, auto Unknown Analyte Clear Not Available [facility] With [address] [place], [address], 11/08/2018 16:10:42 11/09/19 19 11/08/2018 urina lysis , dipst ick, auto Unknown Analyte 1.020 Not Available [facility] With [address] [place], [address], 11/08/2018 16:10:42 11/09/19 19 11/08/2018 urina lysis , dipst ick, auto Unknown Analyte 1.003 - 1.035 Not Available [facility] Extended Services With [address] [place], [address], 11/08/2018 16:10:42 11/09/19 19 11/08/2018 urina lysis , dipst ick, auto Unknown Analyte 6.0 Not Available [facility] With [address] [place], [address], 11/08/2018 16:10:42 11/09/19 19 11/08/2018 urina lysis , dipst ick, auto Unknown Analyte 5.0 - 8.0 Not Available [facility] Extended Services With [address] [place], [address], 11/08/2018 16:10:42 11/09/19 19 11/08/2018 urina lysis , dipst ick, auto Unknown Analyte Negati ve Not Available [facility] Extended Services With [address] [place], [address], 11/08/2018 16:10:42 11/09/19 19 11/08/2018 urina lysis , dipst ick, auto Unknown Analyte Negati ve Not Available [facility] Extended Services With [address] [place], [address], 11/08/2018 16:10:42 11/09/19 19 11/08/2018 urina lysis , dipst ick, auto Unknown Analyte Negati ve Not Available [facility] Extended Services With [address], [place], [address], 11/08/2018 16:10:42 11/09/19 19 11/08/2018 urina lysis , dipst ick, auto Unknown Analyte Negati ve Not Available [facility] Extended Services With [address] [place], [address], 11/08/2018 16:10:42 11/09/19 19 11/08/2018 urina lysis , dipst ick, auto Unknown Analyte Negtiv e Not Available [facility] Extended Services With [address] [place], [address], 11/08/2018 16:10:42 11/09/19 19 11/08/2018 urina lysis , dipst ick, auto Unknown Analyte Negati ve - Trace Not Available [facility] Extended Services With [address] [place], [address], 11/08/2018 16:10:42 11/09/19 19 11/08/2018 urina lysis , dipst ick, auto Unknown Analyte Normal Not Available [facility] With [address] [place], [address], 11/08/2018 16:10:42 11/09/19 19 11/08/2018 urina lysis , dipst ick, auto Unknown Analyte Normal Not Available [facility] Extended [facility] With [address] [place], [address], 11/08/2018 16:10:42 11/09/19 19 11/08/2018 urina lysis , dipst ick, auto Unknown Analyte Negati ve Not Available [facility] [address] [place], [address], 11/08/2018 16:10:42 11/09/19 19 11/08/2018 urina lysis , dipst ick, auto Unknown Analyte Negati ve Not Available [facility] Extended Services With [address] [place], [address], 11/08/2018 16:10:42 11/09/19 19 11/08/2018 urina lysis , dipst ick, auto Unknown Analyte Normal Not Available [facility] With [address] [place], [address], 11/08/2018 16:10:42 11/09/19 19 11/08/2018 urina lysis , dipst ick, auto Unknown Analyte Normal - 1mg/dl Not Available [facility] Extended Services With [address] [place], [address], 11/08/2018 16:10:42 11/09/19 19 11/08/2018 urina lysis , dipst ick, auto Unknown Analyte Negati ve Not Available [facility] Extended Services With [address] [place], [address], 11/08/2018 16:10:42 11/09/19 19 11/08/2018 urina lysis , dipst ick, auto Unknown Analyte Negati ve Not Available [facility] Extended Services With [address] [place], [address], 11/08/2018 16:10:42 11/09/19 19 11/08/2018 urina lysis , dipst ick, auto Unknown Analyte Negati ve Not Available [facility] Extended Services With [address] [place], [address], 11/08/2018 16:10:42 11/09/19 19 11/08/2018 urina lysis , dipst ick, auto Unknown Analyte Negati ve Not Available [facility] Extended Services With [address] [place], [address], 11/08/2018 16:10:42 11/09/19 19 11/08/2018 urina lysis , dipst ick, auto Unknown Analyte Clean Catch Not Available [facility] Extended Services With [address] [place], [address], 11/08/2018 16:10:42 11/09/19 19 11/08/2018 urina lysis , dipst ick, auto Unknown Analyte Automa ya Not Available [facility] Extended Services With [address] [place], [address], 11/08/2018 16:10:42 01/12/20 18 01/11/2018 urina lysis , dipst ick, auto Unknown Analyte Yellow Not Available [facility] With [address] [place], [address], 01/11/2018 14:33:40 01/12/20 18 01/11/2018 urina lysis , dipst ick, auto Unknown Analyte Clear Not Available [facility] With [address] [place], [address], 01/11/2018 14:33:40 01/12/20 18 01/11/2018 urina lysis , dipst ick, auto Unknown Analyte 1.015 Not Available [facility] With [address] [place], [address], 01/11/2018 14:33:40 01/12/20 18 01/11/2018 urina lysis , dipst ick, auto Unknown Analyte 6.5 Not Available [facility] With [address] [place], [address], 01/11/2018 14:33:40 01/12/20 18 01/11/2018 urina lysis , dipst ick, auto Unknown Analyte Negati ve Not Available [facility] Extended Services With [address] [place], [address], 01/11/2018 14:33:40 01/12/20 18 01/11/2018 urina lysis , dipst ick, auto Unknown Analyte Negati ve Not Available [facility] Extended Services With [address] [place], [address], 01/11/2018 14:33:40 01/12/20 18 01/11/2018 urina lysis , dipst ick, auto Unknown Analyte Negtiv e Not Available [facility] Extended Services With [address] [place], [address], 01/11/2018 14:33:40 01/12/20 18 01/11/2018 urina lysis , dipst ick, auto Unknown Analyte Normal Not Available [facility] With [address] [place], [address], 01/11/2018 14:33:40 01/12/20 18 01/11/2018 urina lysis , dipst ick, auto Unknown Analyte Negati ve Not Available [facility] Extended Services With [address] [place], [address], 01/11/2018 14:33:40 01/12/20 18 01/11/2018 urina lysis , dipst ick, auto Unknown Analyte Normal Not Available [facility] With [address] [place], [address], 01/11/2018 14:33:40 01/12/20 18 01/11/2018 urina lysis , dipst ick, auto Unknown Analyte Negati ve Not Available [facility] Extended Services With [address] [place], [address], 01/11/2018 14:33:40 01/12/20 18 01/11/2018 urina lysis , dipst ick, auto Unknown Analyte Negati ve Not Available [facility] Extended Services With [address] [place], [address], 01/11/2018 14:33:40 01/12/20 18 01/11/2018 urina lysis , dipst ick, auto Unknown Analyte Clean Catch Not Available [facility] Extended Services With [address] [place], [address], 01/11/2018 14:33:40 01/12/20 18 01/11/2018 urina lysis , dipst ick, auto Unknown Analyte Automa ya Not Available [facility] Extended Services With [address] [place], [address], 01/11/2018 14:33:40 07/06/19 18 07/06/2017 urina lysis , dipst ick, auto Unknown Analyte Yellow Not Available [facility] With [address] [place], [address], 07/06/2017 14:00:01 07/06/19 18 07/06/2017 urina lysis , dipst ick, auto Unknown Analyte Clear Not Available [facility] Extended [facility] With [address] [place], [address], 07/06/2017 14:00:01 07/06/19 18 07/06/2017 urina lysis , dipst ick, auto Unknown Analyte 1.025 Not Available [facility] Extended [facility] With [address] [place], [place], [address], 07/06/2017 14:00:01 07/06/19 18 07/06/2017 urina lysis , dipst ick, auto Unknown Analyte 5.0 Not Available [facility] With [address] [place], [address], 07/06/2017 14:00:01 07/06/19 18 07/06/2017 urina lysis , dipst ick, auto Unknown Analyte Negati ve Not Available [facility] Extended Services With [address] [place], [address], 07/06/2017 14:00:01 07/06/19 18 07/06/2017 urina lysis , dipst ick, auto Unknown Analyte Negati ve Not Available [facility] Extended Services With [address] [place], [address], 07/06/2017 14:00:01 07/06/19 18 07/06/2017 urina lysis , dipst ick, auto Unknown Analyte Negtiv e Not Available [facility] Extended Services With [address] [place], [address], 07/06/2017 14:00:01 07/06/19 18 07/06/2017 urina lysis , dipst ick, auto Unknown Analyte Normal Not Available [facility] With [address] [place], [address], 07/06/2017 14:00:01 07/06/19 18 07/06/2017 urina lysis , dipst ick, auto Unknown Analyte Negati ve Not Available [facility] Extended Services With [address] [place], [address], 07/06/2017 14:00:01 07/06/19 18 07/06/2017 urina lysis , dipst ick, auto Unknown Analyte Normal Not Available [facility] Extended [facility] With [address] [place], [address], 07/06/2017 14:00:01 07/06/19 18 07/06/2017 urina lysis , dipst ick, auto Unknown Analyte Negati ve Not Available [facility] Extended Services With [address] [place], [address], 07/06/2017 14:00:01 07/06/19 18 07/06/2017 urina lysis , dipst ick, auto Unknown Analyte Negati ve Not Available [facility] Extended Services With [address] [place], [address], 07/06/2017 14:00:01 07/06/19 18 07/06/2017 urina lysis , dipst ick, auto Unknown Analyte Clean Catch Not Available [facility] Extended Services With [address] [place], [address], 07/06/2017 14:00:01 07/06/19 18 07/06/2017 urina lysis , dipst ick, auto Unknown Analyte Automa ya Not Available [facility] Extended Services With [address] [place], [address], 07/06/2017 14:00:01 03/02/20 17 03/02/2017 urina lysis , dipst ick, auto Unknown Analyte Yellow Not Available [facility] With [address] [place], [address], 03/02/2017 16:31:24 03/02/20 17 03/02/2017 urina lysis , dipst ick, auto Unknown Analyte Clear Not Available [facility] With [address] [place], [address], 03/02/2017 16:31:24 03/02/20 17 03/02/2017 urina lysis , dipst ick, auto Unknown Analyte 1.020 Not Available [facility] Extended [facility] With [address] [place], [address], 03/02/2017 16:31:24 03/02/20 17 03/02/2017 urina lysis , dipst ick, auto Unknown Analyte 5.0 Not Available [facility] Extended [facility] With [address] [place], [address], 03/02/2017 16:31:24 03/02/20 17 03/02/2017 urina lysis , dipst ick, auto Unknown Analyte Negati ve Not Available [facility] Extended Services With [address] [place], [address], 03/02/2017 16:31:24 03/02/20 17 03/02/2017 urina lysis , dipst ick, auto Unknown Analyte Negati ve Not Available [facility] Extended Services With [address] [place], [address], 03/02/2017 16:31:24 03/02/20 17 03/02/2017 urina lysis , dipst ick, auto Unknown Analyte Negtiv e Not Available [facility] Extended Services With [address] [place], [address], 03/02/2017 16:31:24 03/02/20 17 03/02/2017 urina lysis , dipst ick, auto Unknown Analyte Normal Not Available [facility] Extended [facility] With [address] [place], [address], 03/02/2017 16:31:24 03/02/20 17 03/02/2017 urina lysis , dipst ick, auto Unknown Analyte Negati ve Not Available [facility] Extended Services With [address] [place], [address], 03/02/2017 16:31:24 03/02/20 17 03/02/2017 urina lysis , dipst ick, auto Unknown Analyte Normal Not Available [facility] Extended [facility] With [address] [place], [address], 03/02/2017 16:31:24 03/02/20 17 03/02/2017 urina lysis , dipst ick, auto Unknown Analyte Negati ve Not Available [facility] Extended Services With [address] [place], [address], 03/02/2017 16:31:24 03/02/20 17 03/02/2017 urina lysis , dipst ick, auto Unknown Analyte Negati ve Not Available [facility] Extended Services With [address] [place], [address], 03/02/2017 16:31:24 03/02/20 17 03/02/2017 urina lysis , dipst ick, auto Unknown Analyte Clean Catch Not Available [facility] Extended Services With [address] [place], [address], 03/02/2017 16:31:24 03/02/20 17 03/02/2017 urina lysis , dipst ick, auto Unknown Analyte Automa ya Not Available [facility] Extended Services With [address] [place], [address], 03/02/2017 16:31:24 Result Notes None recorded. Problems Name Problem SNOMED Code Status Onset Date Resolution Date Notes Provider Name and Address Organization Details Recorded Time Burn of penis 743068814 Active 017 Gisselle Prajapati [facility] 03/02/2017 16:27:43 Problem Notes None recorded. Procedures Surgical History Date Name Laterality Status Provider Name and Address Organization Details Recorded Time [facility]ia [facility] 16:28:41 [facility] 03/02/2017 16:28:44 Imaging Results None recorded. Procedure [...] Not Available Not Available Not Avai lable [facility] 7.5 mg-325 mg tablet Take 1 tablet [...] Updated DateTime 07/06/2017 182.88 cm 35.3 kg/m2 473974.0 2 g 140 mm[Hg] 88 mm[Hg] [facility] 8 13:59:32 Date Recorded Body height Body mass index (BMI) Body weight Systolic blood pressure Diastolic blood pressure Provider Name and Address Organization Details Last Updated DateTime 11/08/2018 182.88 cm 35.3 kg/m2 189296.0 2 g 138 mm[Hg] 80 mm[Hg] Gisselle Prajapati [facility] 9 16:09:50 Date Recorded Body height Body mass index (BMI) Body weight Systolic blood pressure Diastolic blood pressure Provider Name and Address Organization Details Last Updated DateTime 01/11/2018 182.88 cm 35.3 kg/m2 778393.0 2 g 138 mm[Hg] 80 mm[Hg] [facility] 8 14:32:59 Date Recorded Body height Body mass index (BMI) Body weight Systolic blood pressure Diastolic blood pressure Provider Name and Address Organization Details Last Updated DateTime 03/02/2017 182.88 cm 35.3 kg/m2 753341.0 2 g 120 mm[Hg] 68 mm[Hg] Gisselle Prajapati [facility] 7 16:21:30 Social History Question Answer Notes LastModified by Organizat ion Details LastModified Time Tobacco Smoking Status Never Smoker Gisselle Prajapati [facility] 03/02/2017 16:28:20 How Much Tobacco Do You Chew? None [email or web address] Information not available 11/08/2018 Marital Status [facility] Informatio n not available 03/02/2017 What Was The Date Of Your Most Recent Tobacco Screening? 11/08/2018 Information n ot available 07/23/2019 Sex: Unknown Functional Status Question Answer Note LastModified by Organization D etails LastModified Time What is your level of alcohol consumption? None [email or web address] Information not available 03/02/2017 Mental Status None recorded. Family History Relationship Description Onset Age of this Age Resolved Age Notes LastModified by Organization Details LastModified Time Unspecified Relation Kidney stone [email or web address] Not available 02/04 16:27:57 Father Diabetes mellitus [email or web address] Not available 2016 16:28:04 Medical History Condition Response Kidney Stones Y Depression Y Anxiety Disorder Y Past Encounters Encounter ID Performer Location Encounter Start Date Encounter Closed Date Diagnosis/Indication Diagnosis SNOMED-CT Code Diagnosis ICD10 Code Diagnosis Note [id number] LARRY MICHAELS MD [facility] [address] [address] 03/02/2017 16:20:25 03/06/2017 14:55:57 Balanitis 30329746 N48.1 [id number] LARRY MICHAELS MD SURGERY SCHEDULE [address] [place] [address] 06/06/2017 10:56:46 06/06/2017 10:58:56 Balanitis 18893944 N48.1 [id number] LARRY MICHAELS MD [facility] [address],[place] [address] 07/06/2017 13:31:15 07/12/2017 15:47:16 Balanitis 55518742 N48.1 [id number] LARRY MICHAELS MD [facility] [address] [address] 01/11/2018 13:41:25 01/15/2018 07:57:24 Benign prostatic hyperplasia with outflow obstruction 602215704 N40.1 [id number] LARRY MICHAELS MD [facility] [address],[place] [address] 11/08/2018 14:52:38 12/03/2018 11:11:32 Benign prostatic hyperplasia with outflow obstruction 447553983 N40.1 Health Concerns Section Related Observation LastModified by Organization Detai ls LastModified Time None Recorded Concern Status LastModified by Organization Details LastModified Time None Recorded Advance Directives Directive None Recorded Payers Insurance Date Sequence Insurance Name Policy Number Policy Myers Covered Member ID Myers Member ID Guarantor Name 12/03/2018 2 [place]IC[place]PP[place] [id number] Kuldeep Leroy [id number] Kuldeep Leroy 11/05/2018 1 [place] Kuldeep Leroy [id number] Kuldeep Leroy 03/03/2017 1 *SELF PAY* Stephanie Leroy Notes Date Note Type Note Provider Name and Address Organization Details Recorded Time 03/02/2017 text/html 76-year-old male in the office for consultation and evaluation of recent recurrent balanitis. He has tried qwke-qnx-gqhzayr antifungal cream with some success. He is able to reduce his foreskin without significant problems. He does have BPH and takes Flomax 0.8 mg daily and finasteride. He voids every 2-3 hours with nocturia twice nightly. He denies hesitancy, urgency, hematuria, dysuria. LARRY MICHAELS MD [address] [place] [address] [place], [address] 03/05/2017 20:57:09 07/06/2017 text/html 76-year-old male in the office for follow-up evaluation after recent circumcision for recurrent balanitis. He is doing well. He believes the area has healed after circumcision. He denies hematuria or dysuria. [facility] [place], [address] 07/09/2017 21:21:11 01/11/2018 text/html 77-year-old male in the office for follow-up evaluation of recurrent balanitis treated with circumcision. He states it has healed appropriately. He denies daytime frequency. He has nocturia twice nightly. No hematuria or dysuria. LARRY MICHAELS MD [address] [place] [address] [place], [address], [facility] 01/13/2018 10:14:53 11/08/2018 text/html 78-year-old male in the office for follow-up evaluation of benign prostatic hyperplasia and history of balanitis status post circumcision. He denies irritative voiding symptoms. He denies hematuria or dysuria. He has nocturia 1-2 times nightly. He denies daytime frequency. LARRY MICHAELS MD [address] [place] [address] [place], [address], [facility] 12/02/2018 18:34:17
--- NOTE | 2024-10-31 18:31 | CT_ITS ---
PROCEDURE INFORMATION: Exam: CT Abdomen And Pelvis With Contrast Exam date and time: 10/31/2024 7:13 PM Age: 84 years old Clinical indication: Abdominal pain TECHNIQUE: Imaging protocol: Computed tomography of the abdomen and pelvis with contrast. Radiation optimization: All CT scans at this facility use at least one of these dose optimization techniques: automated exposure control; mA and/or kV adjustment per patient size (includes targeted exams where dose is matched to clinical indication); or iterative reconstruction. Contrast material: ISOVUE; Contrast volume: 75 ml; Contrast route: IV; COMPARISON: CT ABDOMEN PELVIS W CON 10/15/2024 6:51 AM FINDINGS: Tubes, catheters and devices: Cardiac pacemaker leads partially visualized without gross complication or change. Lungs: Visualized lung bases are clear. Heart: Heart size upper limits of normal. Coronary arteries: Coronary artery calcification is present. Esophagus: The visualized distal esophagus is largely contracted without gross abnormality. Liver: Normal contour. No mass lesions. No intrahepatic biliary ductal dilatation. Gallbladder and biliary ducts: Prior cholecystectomy with no significant dilatation of the common bile duct. Pancreas: Severe fatty atrophy of the pancreas without acute abnormality. No pancreatic ductal dilatation. Spleen: Normal. No splenomegaly. Adrenal glands: Normal. No adrenal mass. Kidneys and ureters: Mild bilateral chronic symmetrical perinephric stranding, nonspecific. This is unchanged and may relate to chronic perirenal edema or fibrosis. No hydronephrosis or hydroureter. No urinary tract stones are identified. Stomach and bowel: The stomach is largely contracted. 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 No obstruction. The remainder of the small bowel is unremarkable. No acute colonic abnormalities. Mild-moderate distal colonic diverticulosis without diverticulitis. Appendix: The appendix is normal in caliber and demonstrates no evidence of appendicitis. Intraperitoneal space: No peritoneal free fluid or air. There are few small calcifications in the right lower quadrant anterolateral mesenteric fat which are unchanged. Vasculature: No acute vascular abnormalities. Mild calcific atherosclerosis. Lymph nodes: No adenopathy. Urinary bladder: Unremarkable as visualized. Reproductive: Mildly enlarged prostate. Bones/joints: No acute osseous abnormalities. Moderate lower thoracic spondylosis and mild lumbar spondylosis. Soft tissues: Minor subcutaneous soft tissue swelling in the low midline anterior abdominal wall which is stable in appearance from 10/15/2024, possibly incidental subcutaneous edema although correlate clinically for cellulitis. No soft tissue air or fluid collections. No foreign body. Very small fatty umbilical hernia and moderate-sized fatty right inguinal hernia with no bowel herniation or features of strangulation, unchanged. IMPRESSION: 1. No definite acute process is evident. No gross change from 10/15/2024. 2. Mild subcutaneous soft tissue swelling in the midline lower anterior abdominal wall, unchanged. This could represent incidental subcutaneous edema versus cellulitis. No fluid collections or soft tissue air. 3. Mild-moderate distal colonic diverticulosis without evidence of acute diverticulitis. 4. Moderate-sized fatty right inguinal hernia with no bowel herniation or features of strangulation, grossly unchanged. 5. Additional nonemergent findings detailed above.
--- NOTE | 2024-10-31 18:34 | XR_ITS ---
PROCEDURE INFORMATION: Exam: XR Chest Exam date and time: 10/31/2024 7:14 PM Age: 84 years old Clinical indication: Pain; Chest pressure; Additional info: Shortness of breath TECHNIQUE: Imaging protocol: Radiologic exam of the chest. Views: 1 view. COMPARISON: CT ABDOMEN PELVIS W CON 10/31/2024 7:13 PM FINDINGS: Tubes, catheters and devices: Cardiac pacemaker without gross hardware complication or change. Lungs: Low lung volumes. Question mild central vascular congestion. Mild perihilar/basilar interstitial stranding, possibly hypoventilatory changes and subsegmental atelectasis although can not exclude mild interstitial edema or interstitial pneumonitis. No consolidations. Pleural spaces: No pleural effusion. No pneumothorax. Heart/Mediastinum: Heart size upper limits of normal. No tracheal/mediastinal shift. Bones/joints: No acute osseous abnormalities are identified. Mild thoracic spondylosis. IMPRESSION: Mild perihilar and basilar interstitial prominence which may relate to low lung volumes and hypoventilatory changes, versus mild interstitial edema or interstitial pneumonitis. No consolidations.
[2024-10-31 18:41] LABS: Basophils % 0.6 % (0.1-2.0); Eosinophils # 0.2 Kmm3 (0.0-0.4); Eosinophils % 2.9 % (0.1-12.0); Hemoglobin 12.7 g/dL (14.1-18.0); Immature Granulocytes # 0.01 10^3uL; Immature Granulocytes % 0.2 %; Lymphocytes # 1.8 K/mm3 (0.7-4.5); Mean Corpuscular HGB Conc 33.4 g/dL (31.8-35.4); Mean Corpuscular Hemoglobin 30.3 pg (27.0-31.2); Mean Corpuscular Volume 90.7 fl (80-94); Mean Platelet Volume 11.6 fl (7.4-10.4); Monocytes # 0.8 K/mm3 (0.1-1.0); Monocytes % 12.4 % (1.7-9.3); Neutrophils # 3.5 K/mm3 (1.8-7.8); Neutrophils % 55.9 % (37.0-80.0); Nucleated Red Blood Cells # 0 10^3/uL; Nucleated Red Blood Cells % 0 %; Platelet Count 201 K/mm3 (142-424); Red Blood Count 4.19 M/mm3 (4.60-6.20); Red Cell Distribution Width 12.4 % (11.5-17.5); Red Cell Distribution Width-SD 41.4 fL; White Blood Count 6.3 K/mm3 (4.8-10.8)
--- NOTE | 2024-10-31 18:42 | ED_ITS ---
Discharge Plan Disposition Patient Disposition: Home, Self-Care Prescriptions Prescriptions: No Action metformin 500 mg tablet 500 mg PO Patient Comments: TAKE 1 TABLET BY MOUTH TWICE A DAY TO IMPROVE DIABETES albuterol sulfate 90 mcg/actuation HFA aerosol inhaler inhalation Patient Comments: INHALE 2 PUFFS EVERY 6 HOURS NEEDED FOR WHEEZING OR SHORTNESS OF AIR. urea 40 % cream 1 applic topical BID 30 Days Qty: 60 3RF mupirocin 2 % ointment 1 applic topical BID 21 Days Qty: 22 1RF Rx Instructions: Apply to affected area up to twice daily Eliquis 5 mg tablet 5 mg PO Q12H Patient Comments: TAKE 1 TABLET BY MOUTH EVERY 12 HOURS atorvastatin 40 mg tablet 40 mg PO ONCE Patient Comments: TAKE 1 TABLET BY MOUTH EVERY DAY carvedilol 6.25 mg tablet 6.25 mg PO BID Patient Comments: TAKE 1 TABLET BY MOUTH TWICE A DAY citalopram 20 mg tablet 20 mg PO ONCE Patient Comments: TAKE 1 TABLET BY MOUTH EVERY DAY finasteride 5 mg tablet 5 mg PO ONCE Patient Comments: TAKE 1 TABLET EVERY DAY furosemide 40 mg tablet 40 mg PO ONCE Patient Comments: TAKE 1 TABLET BY MOUTH EVERY DAY potassium chloride [Klor-Con M20] 20 mEq tablet,ER particles/crystals 20 meq PO ONCE Patient Comments: TAKE 1 TABLET BY MOUTH EVERY DAY Entresto 24-26 mg tablet 1 tab PO .Q12 Patient Comments: TAKE 1 TABLET BY MOUTH EVERY 12 HOURS tamsulosin 0.4 mg capsule 0.8 mg PO ONCE Patient Comments: TAKE 2 CAPSULES BY MOUTH EVERY DAY temazepam 30 mg capsule 30 mg PO ONCE Patient Comments: TAKE 1 CAPSULE BY MOUTH AT BEDTIME Creon 36,000-114,000- 180,000 unit capsule,delayed release(DR/EC) 1 cap PO .With meals Qty: 100 12RF Rx Instructions: Please take 1 capsule with meals and administer with meals and/or snacks Referrals Follow up/Referrals: Jose Hayden MD [Staff Physician, General Surgery] - See instructions Paul Be [Primary Care Provider, Medical] - See instructions Activity Restrictions/Add. Instructions Additional Instructions/Restrictions: Recommend following up with Dr. Hayden about your inguinal hernia. Follow-up with Dr. Fletcher about your prostate and urologic issues. Follow-up with PCP. Please return to the ER with any new, concerning, worsening symptoms. Clinical Impressions Clinical Impression: Urinary frequency, Abdominal distension, Shortness of breath Inguinal hernia Qualifiers: Obstruction and gangrene presence: without obstruction or gangrene Laterality: unilateral Recurrence: recurrent Qualified Code(s): K40.91 - Unilateral inguinal hernia, without obstruction or gangrene, recurrent Instructions Patient Instructions: DI for Acute Abdominal Pain Print Language Print Language: Guatemalan Discharge ED Provider: Kingston Erickson General Adult HPI <Kendy Bullard APRN - Last Filed: 10/31/24 22:01> General Chief complaint: Abdominal Pain Stated complaint: ABD Pain Time Seen by Provider: 10/31/24 18:10 Mode of Arrival: EMS Source of Information: Patient Description of Symptoms (Recalled from ER Triage Doc. by RN): Patient states he has been having right upper quadrant abdominal pain and swelling for about the last 6 weeks. States he has been feeling more short of breath the last 2 days. States he has been seen here at the ER for this earlier this month, and sees various different doctors for complaints. Also had a scan done at this facility 2 days ago and has not gotten the results History of Present Illness HPI narrative: Kuldeep Leroy is an 84-year-old male who presents emergency room tonight with complaints of worsening shortness of breath and increasing distention in his abdomen for the last few days. Mr. Pollard is seen gastroenterology a couple of weeks ago for basically the same complaints. GI recommended a fiber bowel regimen as well as some Gas-X to use and ordered Hemoccult test as well as some anemia test. Prior CT scan showed some excessive stool burden in the right colon which GI states can contribute to more gas formation and bloating. Discussed possibly doing a colonoscopy. Patient tells me he had a normal bowel movement this morning. States he feels much better after he has a bowel movement but then feels bloated a couple hours shortly thereafter. Denies any melanotic stools, no BRBPR. No abdominal pain at this time. No chest pain, fever, nausea, vomiting, diarrhea. No other complaints at this time. Please note that the above description of symptoms, and this electronic medical record under categorization of recalled from ER triage doctor by RN are reflective of an initial nursing assessment, however, is not reflective of my full history and physical exam that was personally taken and clarified. Consequentially, this proceeding description of symptoms, which may include the patient's cauterized chief complaint in the EMR, do not reflect my personal clinical impression, and the ultimate description of the history of present illness stated complaints should be deferred to this section of this note. Unless stated otherwise were congruent with the section of the note, additional signs, symptoms, or incongruence can be interpreted as in or accurate with my clinical impression. Related Data Home Medications ?Medication ?Instructions ?Recorded ?Confirmed albuterol sulfate 90 mcg/actuation inhalation 09/28/23 10/21/24 aerosol inhaler apixaban 5 mg tablet (Eliquis) 5 mg PO Q12H 10/15/24 0 10/21/24 atorvastatin 40 mg tablet 40 mg PO ONCE 10/15/2410/21 carvedilol 6.25 mg tablet 6.25 mg PO BID 10/15/2410/03 citalopram 20 mg tablet 20 mg PO ONCE 10/15/2410/21 finasteride 5 mg tablet 5 mg PO ONCE 10/15/24 furosemide 40 mg tablet 40 mg PO ONCE 10/15/2410/21 potassium chloride 20 mEq 20 meq PO ONCE 10/15/2410/03 tablet,extended release(part/cryst) (Klor-Con M) sacubitril 24 mg-valsartan 26 mg 1 tab PO .Q12 5 10/21/24 tablet (Entresto) tamsulosin 0.4 mg capsule 0.8 mg PO ONCE 10/15/2410/03 temazepam 30 mg capsule 30 mg PO ONCE 10/15/2410/21 metformin 500 mg tablet 500 mg PO 10/21/24 10/21/24 Previous Rx's ?Medication ?Instructions ?Recorded mupirocin 2 % topical ointment 1 applic topical BID ce llulitis 3 09/28/23 weeks #22 grams urea 40 % topical cream 1 applic topical BID keratos is 30 09/28/23 days #60 applic [id number] 1 cap PO .With meals #100 ca ps 10/17/24 36,000-114,000-180,000 unit capsule,delay rel (Creon) Allergies Allergy/AdvReac Type Severity Reaction Status Date / Time No Known Allergies Allergy Verified 10/31/24 18:20 PFSH <Kendy Bullard, T[employer]ING [employer] 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 Medical History FH: cholecystectomy Inguinal hernia Kidney stones Shortness of breath Surgical History H/O hernia repair S/P placement of cardiac pacemaker Family History Father , 98 y/o Cancer stomach Diabetes Mother , 92 y/o Heart disease Social History Smoking Status: Never smoker alcohol intake: never substance use type: denies use current occupational status: retired Travel in the last 8 weeks?: Inside the [place] household members: spouse housing: house lives independently: Yes marital status: Have you lived/traveled outside [place] in past 30 days?: No Contact w/someone who lives/traveled outside [place] past 30 days?: No Exposure to someone with infectious disease in past 14 days?: No Do you have a fever (greater than 100.4 F or 38 C)?: No Have you tested positive for COVID-19?: No Exposed to someone with COVID-19 in past 14 days?: No Do you have a sore throat?: No Do you have a cough?: No Do you have any weakness?: No Do you have any diarrhea?: No Are you experiencing any unusual bleeding?: No Do you have any muscle aches/pain?: No Do you have any abdominal pain?: Yes Are you experiencing loss of taste or smell?: No Other Medical History Have you received the Pneumonia Vaccine: Yes <Kendy Bullard APRN - Last Filed: 10/31/24 22:01> ROS Obtained: Yes Systems reviewed as appropriate & no additional complaints except as documented Physical Exam <Kendy Bullard APRN - Last Filed: 10/31/24 22:01> General General appearance: alert and in no apparent distress Head Head exam: atraumatic and normocephalic Eye Eye exam: Present PERRL and EOMI Chest Chest inspection: Present symmetric chest wall rise Respiratory Respiratory exam: Present normal lung sounds bilaterally Cardiovascular Cardiovascular exam: Present regular rate and normal rhythm Abdominal Exam Abdominal exam: Present soft and normal bowel sounds; Absent tenderness Comment: Distention noted, no guarding, no peritoneal signs Extremities Exam Extremities exam: Present full ROM Neurological Exam Neurological exam: Present alert and oriented X3 Skin Skin exam: Present warm, dry and intact Medical Decision Making <Kendy Bullard, [employer]ADING MACHINE OPERATOR - Last Filed: 10/31/24 22:01> Medical Records Screening: Per USPSTF and CDC recommendations, given the prevalence of disease in our region, it is our hospital?s policy to screen for HIV and viral Hepatitis for all patients aged 18 and over and those with ongoing risk factors. Perico Inquiry Pt receiving controlled substance: No Vital Signs: 10/31/24 18:12 10/31/24 18:30 10/31/24 19:00 Temperature 98.2 F Temperature Source Oral Pulse Rate 68 69 Pulse Rate [Right Radial] 75 Respiratory Rate 16 14 14 Blood Pressure 156/86 H 145/86 H Blood Pressure [Right Arm] 154/81 H Blood Pressure Mean [Right Arm] 105 Blood Pressure Source [Right Arm] Automatic Cuff Blood Pressure Position [Right Arm] Sitting 02 Sat by Pulse Oximetry 99 99 100 Oxygen Delivery Method Room Air Room Air Room Air 10/31/24 20:51 10/31/24 21:00 10/31/24 21:30 Temperature Temperature Source Pulse Rate 60 59 L 66 Pulse Rate [Right Radial] Respiratory Rate 16 12 13 Blood Pressure 132/77 138/80 143/76 H Blood Pressure [Right Arm] Blood Pressure Mean [Right Arm] Blood Pressure Source [Right Arm] Blood Pressure Position [Right Arm] 02 Sat by Pulse Oximetry 98 98 98 Oxygen Delivery Method Room Air Room Air Room Air 10/31/24 22:00 Temperature Temperature Source Pulse Rate 59 L Pulse Rate [Right Radial] Respiratory Rate Blood Pressure 132/73 Blood Pressure [Right Arm] Blood Pressure Mean [Right Arm] Blood Pressure Source [Right Arm] Blood Pressure Position [Right Arm] 02 Sat by Pulse Oximetry 99 Oxygen Delivery Method Room Air Lab Data Lab Results 10/31/24 18:19: WBC 6.3, RBC 4.19 L, Hgb 12.7 L, Hct 38.0 L, MCV 90.7, MCH 30.3, MCHC 33.4, RDW 12.4, Plt Count 201, MPV 11.6 H, Neut % (Auto) 55.9, Lymph % (Auto) 28.0, [place] % (Auto) 12.4 H, Eos % (Auto) 2.9, Baso % (Auto) 0.6, Neut # (Auto) 3.5, Lymph # (Auto) 1.8, [place] # (Auto) 0.8, Eos # (Auto) 0.2, Baso # (Auto) 0.0, Sodium 134 L, Potassium 4.0, Chloride 104, Carbon Dioxide 26, Anion Gap 8.0, BUN 16, Creatinine 0.80, Estimated Creat Clear 95, Estimated GFR 92, Est GFR ( Amer) 111, Glucose 122 H, Calcium 8.9, Total Bilirubin 0.4, AST 23, ALT 21, Alkaline Phosphatase 72, Troponin I < 0.01, Total Protein 6.1 L, Albumin 3.7, Globulin 2.4, Albumin/Globulin Ratio 1.5, Lipase 46 10/31/24 21:58: Troponin I < 0.01 10/31/24 18:19 10/31/24 18:19 Orders (Tests/Meds): ED MEDICATIONS Discontinued Medications Generic Name Dose Route Start Last Admin Trade Name Freq PRN Reason Stop Dose Admin Iopamidol 75 ml 10/31/24 19:12 10/31/24 19:13 Iopamidol-370 (76%);100ml Bottle IV 10/31/24 19:13 75 ml ONCE ONE Administration Sodium Chloride 10 ml 10/31/24 19:12 10/31/24 19:13 Sodium Chloride 0.9% 10ml Syr (Rad Only) IV 10/31/24 19:13 10 ml ONCE ONE Administration ORDERS Category Date Time Status CT abdomen pelvis w con Stat Cat Scan 10/31/24 18:31 Completed CXR --portable [XR chest portable] Stat Exams 10/31/24 18:34 Completed CBC w/Auto Diff [Complete Blood Count Auto Diff] Stat Lab 10/31/24 18:19 Completed CMP [Comprehensive Metabolic Panel] Stat Lab 10/31/24 18:19 Completed Lipase Stat Lab 10/31/24 18:19 Completed Trop I [Troponin I] Stat Lab 10/31/24 18:19 Completed Troponin I Q3H Lab 10/31/24 21:58 Completed Troponin I Q3H Lab 11/01/24 00:45 Ordered Medical Decision Narrative: In summary patient is an 84-year-old male who presents emergency department for evaluation of abdominal distention and a bit of worsening shortness of breath. Patient reports that he feels like his belly is more full than usual and distended and is making his shortness of breath worse. He did not new issues. Has seen GI as well as general surgery and urology recently. Denies any fever, no abdominal pain per se. She states he feels more distended than usual. Reports a normal bowel movement this morning. No nausea, vomiting. Patient has a known fat-containing right inguinal hernia, moderate right hydrocele, moderate left hydrocele. Patient is hemodynamically stable upon arrival, afebrile. Physical exam noted for a obese, protuberant belly that appears distended but is very soft, has normal bowel sounds, and is not tender to palpation. Differential diagnosis includes small bowel obstruction, gastroenteritis, pneumonia. Initial workup will be conducted with hematologic labs, chest x-ray, CT of the abdomen pelvis with contrast. Care was discussed with and turned over to attending physician at approximately [address] read. <Kingston Erickson MD - Last Filed: 10/31/24 22:47> Vital Signs: 10/31/24 18:12 10/31/24 18:30 10/31/24 19:00 Temperature 98.2 F Temperature Source Oral Pulse Rate 68 69 Pulse Rate [Right Radial] 75 Respiratory Rate 16 14 14 Blood Pressure 156/86 H 145/86 H Blood Pressure [Right Arm] 154/81 H Blood Pressure Mean [Right Arm] 105 Blood Pressure Source [Right Arm] Automatic Cuff Blood Pressure Position [Right Arm] Sitting 02 Sat by Pulse Oximetry 99 99 100 Oxygen Delivery Method Room Air Room Air Room Air 10/31/24 20:51 10/31/24 21:00 10/31/24 21:30 Temperature Temperature Source Pulse Rate 60 59 L 66 Pulse Rate [Right Radial] Respiratory Rate 16 12 13 Blood Pressure 132/77 138/80 143/76 H Blood Pressure [Right Arm] Blood Pressure Mean [Right Arm] Blood Pressure Source [Right Arm] Blood Pressure Position [Right Arm] 02 Sat by Pulse Oximetry 98 98 98 Oxygen Delivery Method Room Air Room Air Room Air 10/31/24 22:00 Temperature Temperature Source Pulse Rate 59 L Pulse Rate [Right Radial] Respiratory Rate Blood Pressure 132/73 Blood Pressure [Right Arm] Blood Pressure Mean [Right Arm] Blood Pressure Source [Right Arm] Blood Pressure Position [Right Arm] 02 Sat by Pulse Oximetry 99 Oxygen Delivery Method Room Air Lab Data Lab Results 10/31/24 18:19: WBC 6.3, RBC 4.19 L, Hgb 12.7 L, Hct 38.0 L, MCV 90.7, MCH 30.3, MCHC 33.4, RDW 12.4, Plt Count 201, MPV 11.6 H, Neut % (Auto) 55.9, Lymph % (Auto) 28.0, [place] % (Auto) 12.4 H, Eos % (Auto) 2.9, Baso % (Auto) 0.6, Neut # (Auto) 3.5, Lymph # (Auto) 1.8, [place] # (Auto) 0.8, Eos # (Auto) 0.2, Baso # (Auto) 0.0, Sodium 134 L, Potassium 4.0, Chloride 104, Carbon Dioxide 26, Anion Gap 8.0, BUN 16, Creatinine 0.80, Estimated Creat Clear 95, Estimated GFR 92, Est GFR ( Amer) 111, Glucose 122 H, Calcium 8.9, Total Bilirubin 0.4, AST 23, ALT 21, Alkaline Phosphatase 72, Troponin I < 0.01, Total Protein 6.1 L, Albumin 3.7, Globulin 2.4, Albumin/Globulin Ratio 1.5, Lipase 46 10/31/24 21:58: Troponin I < 0.01 Orders (Tests/Meds): ED MEDICATIONS Discontinued Medications Generic Name Dose Route Start Last Admin Trade Name Freq PRN Reason Stop Dose Admin Iopamidol 75 ml 10/31/24 19:12 10/31/24 19:13 Iopamidol-370 (76%);100ml Bottle IV 10/31/24 19:13 75 ml ONCE ONE Administration Sodium Chloride 10 ml 10/31/24 19:12 10/31/24 19:13 Sodium Chloride 0.9% 10ml Syr (Rad Only) IV 10/31/24 19:13 10 ml ONCE ONE Administration ORDERS Category Date Time Status CT abdomen pelvis w con Stat Cat Scan 10/31/24 18:31 Completed CXR --portable [XR chest portable] Stat Exams 10/31/24 18:34 Completed CBC w/Auto Diff [Complete Blood Count Auto Diff] Stat Lab 10/31/24 18:19 Completed CMP [Comprehensive Metabolic Panel] Stat Lab 10/31/24 18:19 Completed Lipase Stat Lab 10/31/24 18:19 Completed Trop I [Troponin I] Stat Lab 10/31/24 18:19 Completed Troponin I Q3H Lab 10/31/24 21:58 Completed Troponin I Q3H Lab 11/01/24 00:45 Ordered Medical Decision Narrative: In summary patient is an 84-year-old male who presents emergency department for evaluation of abdominal distention and a bit of worsening shortness of breath. Patient reports that he feels like his belly is more full than usual and distended and is making his shortness of breath worse. He did not new issues. Has seen GI as well as general surgery and urology recently. Denies any fever, no abdominal pain per se. She states he feels more distended than usual. Reports a normal bowel movement this morning. No nausea, vomiting. Patient has a known fat-containing right inguinal hernia, moderate right hydrocele, moderate left hydrocele. Patient is hemodynamically stable upon arrival, afebrile. Physical exam noted for a obese, protuberant belly that appears distended but is very soft, has normal bowel sounds, and is not tender to palpation. Differential diagnosis includes small bowel obstruction, gastroenteritis, pneumonia. Initial workup will be conducted with hematologic labs, chest x-ray, CT of the abdomen pelvis with contrast. Care was discussed with and turned over to attending physician at approximately [address] read[address] JOSE G attestation I was consulted by the JOSE G, and we discussed the complexity of problems being addressed. I approved the treatment and management plan for this patient's care in the emergency department, thus performing a substantial portion of the medical decision making. I also performed my independent evaluation and examined this patient. Patient was complaining of abdominal distention, urinary frequency, shortness of breath, and testicular pain. On exam, he had no significant erythema or swelling of his right testicle. On chart review, a recent scrotal ultrasound demonstrated a fat-containing inguinal hernia/scrotal hernia that is the most likely explanation for the symptoms. Discussed this with patient and he had already been evaluated by general surgeon who was not interested in performing surgery at this time. He is going to seek a second opinion or follow-up with this surgeon regarding this issue. CT abdomen pelvis was independently interpreted by me, revealing of no acute intra-abdominal pathology, just redemonstrating his inguinal hernia. He had diverticulosis without diverticulitis. He is to follow-up with PCP about this. He also expressed urinary frequency however a urinalysis 10 days ago while patient was experiencing the same symptoms demonstrated no UTI. Urologist had concern for BPH and patient was already prescribed tamsulosin. He is to follow-up with urologist regarding this. Regarding his shortness of breath, he had undetectable troponin x 2, nonactionable CBC and CMP. No acute cardiopulmonary pathology on chest x-ray. Radiology report reads mild perihilar and basilar interstitial prominence likely representing hypoventilatory changes. Patient was ultimately discharged in stable condition Kingston Erickson MD Critical Care <Kendy Bullard APRN - Last Filed: 10/31/24 22:01> Critical Care Time Critical Care Time: No
[2024-10-31 18:46] LABS: Lipase 46 U/L (23-300)
[2024-10-31 18:49] LABS: Albumin Level 3.7 g/dl (3.5-5.0); Chloride 104 mmol/L (98-107); Sodium 134 mmol/L (136-145)
[2024-10-31 18:52] LABS: Alanine Aminotransferase 21 U/L (12-78); Albumin/Globulin Ratio 1.5 (1.1-1.8); Alkaline Phosphatase 72 U/L (38-126); Aspartate Amino Transferase 23 U/L (17-59); Bilirubin,Total 0.4 mg/dl (0.2-1.3); Blood Urea Nitrogen 16 mg/dl (9-20); Calcium 8.9 mg/dl (8.4-10.2); Carbon Dioxide 26 mmol/L (22.0-30.0); Creatinine Clearance Estimated 95 mL/min (50-200); Estimated Glomerular Filt Rate 92 ml/min (>60); GFR (African American) 111 ML/MIN (>60); Globulin 2.4 g/dL (1.3-3.2); Glucose 122 mg/dl (74-100); Total Protein,Serum 6.1 g/dl (6.3-8.2)
[2024-10-31 19:03] LABS: Troponin I < 0.01 ng/ml (0.00-0.034)
[2024-10-31] MEDS: IOPAMIDOL-370 (76%);100ML BOTTLE 75 ML IV (19:13)
[2024-10-31] MEDS: SODIUM CHLORIDE 0.9% 10ML SYR (RAD ONLY) 10 ML IV (19:13)
[2024-10-31 22:27] LABS: Troponin I < 0.01 ng/ml (0.00-0.034)
== END 2024-10-31 22:53 | disposition home or self-care (01) ==
PROVIDERS: Nurse Practitioner Acute Care; Emergency Provider Student in an Organized Health Care Education/Training Program; PCP Family Medicine
DX: K40.91 Unilateral inguinal hernia, without obstruction or gangrene, recurrent (principal); R06.02 Shortness of breath; Z90.5 Acquired absence of kidney
CPT/HCPCS: 71045; 74177; 80053; 83690; 84484; 85025; 99285; Q9967

== ENCOUNTER 2024-11-06 06:31 | Day surgery (SDC) | payer MEDICARE, BC, SELFPAY ==
[2024-11-05 16:48] VITALS: BMI 42.0
[2024-11-06] MEDS: LACTATED RINGERS 1000ML 1,000 ML 50 ML IV (07:59)
[2024-11-06 08:02] VITALS: BP 122/70; PULSE 61; RESP 18; TEMP 36.1; O2SAT 98
--- NOTE | 2024-11-06 08:11 | EXP.HP ---
History of Present Illness *Admission Date: 11/06/24 *Reason for visit:: Positive fecal Hemoccult and anemia *History of present illness: Mr. Leroy is an 84-year-old gentleman with iron deficiency anemia and Hemoccult positive stool who is here for diagnostic colonoscopy. The examination is deemed medically necessary for diagnostic colonoscopy. The patient has been seen, interviewed and examined prior to the procedure by both myself and the anesthesia provider. [facility] Disclaimer: The information contained in this section may have been updated after the patient was seen, as this information can be updated by other users. Medical History FH: cholecystectomy Inguinal hernia Kidney stones Shortness of breath Surgical History H/O hernia repair S/P placement of cardiac pacemaker Family History Father , 98 y/o Cancer stomach Diabetes Mother , 92 y/o Heart disease Social History Smoking Status: Never smoker alcohol intake: never substance use type: denies use current occupational status: retired Travel in the last 8 weeks?: Inside the [place] household members: spouse housing: house lives independently: Yes marital status: Have you lived/traveled outside US in past 30 days?: No Contact w/someone who lives/traveled outside US past 30 days?: No Exposure to someone with infectious disease in past 14 days?: No Do you have a fever (greater than 100.4 F or 38 C)?: No Have you tested positive for COVID-19?: No Exposed to someone with COVID-19 in past 14 days?: No Do you have a sore throat?: No Do you have a cough?: No Do you have any weakness?: No Do you have any diarrhea?: No Are you experiencing any unusual bleeding?: No Do you have any muscle aches/pain?: No Do you have any abdominal pain?: No Are you experiencing loss of taste or smell?: No Other Medical History Have you received the Pneumonia Vaccine: Yes Review of Systems Review of Systems Review of systems (narrative): Negative *Cardiovascular Comments: Negative *Gastrointestinal Comments: Negative *Genitourinary Comments: Negative *Musculoskeletal Comments: Negative *Neurologic Comments: Negative Meds Home Medications and Allergies Home Medications ?Medication ?Instructions ?Recorded ?Confirmed ?Type albuterol sulfate 90 mcg/actuation 90 inh inhalation DAILY 09/28/23 11/05/24 History aerosol inhaler mupirocin 2 % topical ointment 1 applic topical BID cellulitis 3 09/28/23 11/05/24 Rx weeks #22 grams urea 40 % topical cream 1 applic topical BID keratosis 30 09/28/23 11/05/24 Rx days #60 applic apixaban 5 mg tablet (Eliquis) 5 mg PO Q12H 10/15/24 11/05/24 History atorvastatin 40 mg tablet 40 mg PO ONCE 10/15/24 11/05/24 History carvedilol 6.25 mg tablet 6.25 mg PO BID 10/15/24 11/05/24 History citalopram 20 mg tablet 20 mg PO ONCE 10/15/24 11/05/24 History finasteride 5 mg tablet 5 mg PO ONCE 10/15/24 11/05/24 History furosemide 40 mg tablet 40 mg PO ONCE 10/15/24 11/05/24 History potassium chloride 20 mEq 20 meq PO ONCE 10/15/24 11/05/24 History tablet,extended release(part/cryst) (Klor-Con M) sacubitril 24 mg-valsartan 26 mg 1 tab PO .Q12 10/15/24 11/05/24 History tablet (Entresto) tamsulosin 0.4 mg capsule 0.8 mg PO ONCE 10/15/24 11/05/24 History temazepam 30 mg capsule 30 mg PO ONCE 10/15/24 11/05/24 History hqmpwz-ekeeadfh-mabmlgw 1 cap PO .With meals #100 caps 10/17/24 11/05/24 Rx 36,000-114,000-180,000 unit capsule,delay rel (Creon) metformin 500 mg tablet 500 mg PO DAILY 10/21/24 11/05/24 History New Prescriptions to Start Prescriptions: Allergies Allergy/AdvReac Type Severity Reaction Status Date / Time No Known Allergies Allergy Verified 11/06/24 08:00 Exam Data for Last 24 hours I & O for Last 24 hours: Intake & Output 11/03/24 11/04/24 11/05/24 06/04/25 23:59 23:59 23:59 23:59 Weight 285 lb *Routine HEENT Exam Head: Present normocephalic Eye: Present EOMI and PERRL ENT: Present mucous membranes moist *Routine Neck Exam Neck: Present supple *Routine Respiratory Exam Respiratory: Present CTA bilaterally *Routine Cardiovascular Exam Cardiovascular: Present RRR *Routine Abdominal Exam Abdominal: Present soft and normoactive bowel sounds; Absent tenderness *Routine Rectal Exam Rectal:: deferred *Routine Genitalia Exam Genitalia:: deferred *Routine Extremities Exam Extremities: Absent cyanosis, clubbing or edema *Routine Skin Exam Skin: Present warm; Absent rash *Routine Neurological Exam Neurological: Present alert and oriented X3 Assessment and Plan *Assessment and plan (1) Positive occult stool blood test: Status: Acute Category: Medical Code(s): R19.5 - Other fecal abnormalities (2) Anemia: Status: Acute Category: Medical Code(s): D64.9 - Anemia, unspecified (3) Abdominal distension: Status: Acute Category: Medical Code(s): R14.0 - Abdominal distension (gaseous) (4) Left lower quadrant abdominal pain: Status: Acute Category: Medical Code(s): R10.32 - Left lower quadrant pain Plan A/P: 1. Positive fecal Hemoccult, anemia, lower abdominal pain on the left side and abdominal distention is the preprocedural diagnosis. The patient will be anesthetized/sedated using MAC sedation. The patient has been seen and examined. Cardiac and lung assessment prior to the examination is stable. Proceed with planned diagnostic colonoscopy.
--- NOTE | 2024-11-06 08:14 | HMH.PROCNOTE ---
[facility] Procedure Note Date: 11/06/24 Time: 08:43 Procedure Note:: Colonoscopy Procedure Report: Colonoscopy with cold snare polypectomy Endoscopist: Fredrick Manzano II, MD Referring physician: Paul Be MD Date of Procedure: November 06, 2024 Equipment: Olympus 190 variable stiffness pediatric colonoscope Sedation: MAC sedation Indication: Mr. Leroy is an 84-year-old gentleman who is here for diagnostic colonoscopy secondary to Hemoccult positive stool, anemia, bloating and left lower abdominal pain. He was seen recently in the ED. He does report pain in his right testicle. He also reports pain in the lower abdomen and especially the left lower abdomen. He has had more significant bloating and trouble with bowel function. He reports incomplete defecation. He reports very thin stools and some excessive wiping. His stools can sometimes be loose. He has a lot of pressure, bloating and swelling of the abdomen with gas. His father had gastric cancer. The patient did have lab work today. His hemoglobin hematocrit are mildly low (13.3 and 39.3). Iron studies were borderline with ferritin 36.3, iron saturation 19% and serum iron 62. He also had CT scan of the abdomen recently at [facility] but also at [facility]. The CAT scan at [facility] was very bare bones and did not have a lot of comment in the body of the report but was read as unremarkable. His CAT scan at [facility] showed no acute process but there was moderate colonic diverticulosis on the left side and a moderate-sized right inguinal hernia. His last colonoscopy was more than 10 years ago. He reports no rectal bleeding or mucus with his bowel movements. He reports no weight loss. He does state that his father had gastric cancer. The patient does state that his abdominal discomfort and bloating have significantly improved with the dietary measures and combined fiber bowel regimen (MiraLAX plus Konsyl), Beano and Gas-X. The patient continues to have pain in his right testicle and has not been seen back by general surgery. Procedure: Prior to the procedure, a history and physical exam was performed, and patient's medications and allergies were reviewed. The risks, benefits and alternatives of the sedation and procedure were discussed with the patient. All questions were answered and informed consent was obtained. The patient was brought to the procedure room. Patient identification and proposed procedure were verified by the physician and the nurse. The patient was placed in a left lateral decubitus position and the scope was passed under direct vision. Throughout the procedure, the patient's blood pressure, pulse, and oxygen saturations were monitored continuously. The colonoscopy was accomplished without difficulty. The patient tolerated the procedure well. Findings: On digital rectal examination there was normal rectal tone. There were no external hemorrhoids. The prostate was 2-3+, moderately firm with midline firm nodule that was oblong. The colonoscope was introduced through the anal canal to the rectum and advanced to the cecum. The ileocecal valve and appendiceal orifice were identified. The scope was advanced a short distance into the ileum which appeared grossly normal. The scope was then withdrawn into the colon. The cecum, ascending and transverse colon and mucosa were grossly normal. There were scattered diverticuli throughout the colon but more predominantly in the descending and sigmoid colon (LEFT colon). There was a single 4 mm polyp in the sigmoid colon removed via cold snare polypectomy. The rectum itself was normal. Upon retroflexion within the rectum there were grade 2 internal hemorrhoids. The preparation was excellent throughout with Matthews Preparation Score of 9. The cecal time was 12 minutes. Impression: 1. Diminutive sigmoid polyp (4 mm) 2. Extensive pandiverticulosis 3. Grade 2 internal hemorrhoids 4. Nodular prostate (midline oblong nodule) Plan: The patient will not require any further preventive colonoscopy. I would like for him to be scheduled to see general surgery because of the right inguinal hernia and persistent right testicular pain. I will obtain diagnostic PSA. I would recommend continuing the fiber bowel regimen (MiraLAX plus Konsyl) and dietary measures.
--- NOTE | 2024-11-06 08:24 | EXP.ANES.CKL ---
[facility] Disclaimer: The information contained in this section may have been updated after the patient was seen, as this information can be updated by other users. Medical History FH: cholecystectomy Inguinal hernia Kidney stones Shortness of breath Surgical History H/O hernia repair S/P placement of cardiac pacemaker Family History Father , 98 y/o Cancer stomach Diabetes Mother , 92 y/o Heart disease Social History Smoking Status: Never smoker alcohol intake: never substance use type: denies use current occupational status: retired Travel in the last 8 weeks?: Inside the [facility] household members: spouse housing: house lives independently: Yes marital status: Have you lived/traveled outside US in past 30 days?: No Contact w/someone who lives/traveled outside US past 30 days?: No Exposure to someone with infectious disease in past 14 days?: No Do you have a fever (greater than 100.4 F or 38 C)?: No Have you tested positive for COVID-19?: No Exposed to someone with COVID-19 in past 14 days?: No Do you have a sore throat?: No Do you have a cough?: No Do you have any weakness?: No Do you have any diarrhea?: No Are you experiencing any unusual bleeding?: No Do you have any muscle aches/pain?: No Do you have any abdominal pain?: No Are you experiencing loss of taste or smell?: No [facility] Anesthesia Checklist Patient Identification Patient Identification: Arm Band and Verbal (Name & ) Structural Data Admitted From: Home Planned Operative Procedure/s: colonoscopy Consent for Planned Operative Procedure(s) Verified: Yes Verified Documents: Surgical Consent NPO Status Verified Time NPO: 00:00 Chart Verification Results Verified: None Additional verifications Anesthesia Reactions: No Airway Assessment Mallampati Score:: Class II C-Spine Mobility Assessed: Yes TMJ Mobility Assessed: Yes Dentition: Good Dentition Neurological Assessment Level of Consciousness: Awake, Alert and Appropriate Hx Seizures: No Numbness or tingling in extremities: No Anesthesia Plan Anesthesia Plan: Verified ASA Class: III Anesthesia Type: MAC
[2024-11-06 08:45] VITALS: BP 119/70; PULSE 78; RESP 18; TEMP 36.9; O2SAT 95
[2024-11-06 08:55] VITALS: BP 121/69; PULSE 72; RESP 18; TEMP 36.4; O2SAT 98
[2024-11-06 09:05] VITALS: BP 120/74; PULSE 76; RESP 18; TEMP 36.4; O2SAT 94
[2024-11-06 09:15] VITALS: BP 124/73; PULSE 73; RESP 18; TEMP 36.4; O2SAT 94
[2024-11-06 09:51] LABS: Prostate Specific Ag, Diagnost 1.56 ng/ml (0.0-4.0)
[2024-11-06 16:23] LABS: POC Glucose,Bedside 134 (70-110)
== END 2024-11-06 09:20 | disposition home or self-care (01) ==
PROVIDERS: PCP Family Medicine; Visit Provider Internal Medicine Gastroenterology
PROC: 0DJD8ZZ Inspection of Lower Intestinal Tract, Via Natural or Artificial Opening Endoscopic (ICD-10-PCS; CPT 45378; principal; 2024-11-06 09:00)
DX: K63.5 Polyp of colon (principal); K57.30 Diverticulosis of large intestine without perforation or abscess without bleeding; K64.1 Second degree hemorrhoids; N40.2 Nodular prostate without lower urinary tract symptoms; R19.5 Other fecal abnormalities; K40.90 Unilateral inguinal hernia, without obstruction or gangrene, not specified as recurrent; N50.811 Right testicular pain; D64.9 Anemia, unspecified; R14.0 Abdominal distension (gaseous); R10.32 Left lower quadrant pain; Z80.0 Family history of malignant neoplasm of digestive organs; Z79.899 Other long term (current) drug therapy; Z79.84 Long term (current) use of oral hypoglycemic drugs
CPT/HCPCS: 45385; 36415; 82962; 84153; 88305; J7120

== ENCOUNTER 2024-11-27 11:04 | Outpatient (CLI) | payer MEDICARE, BC, SELFPAY ==
--- OUTSIDE RECORDS SUMMARY | 2024-11-27 11:18 | XMS_ITS | Encounter Summary ---
Author Organization [facility] Address [address] [place] [id number] Care Team Providers Care Cyber Incident Handler Name Role Phone Unavailable Primary Care Provider Unavailabl e Encounter Details Date Type Department Care Team (Late st Contact Info) Description 06/11/2020 Transcribed Document [facility] [place] [place] [address] ProviderRey MD [address] [place] [address] Social History Tobacco Use Types Packs/Day Years Used Date Smoking Tobacco: Never Assessed Sex and Gender Information Value Date Recorded Sex Assigned at Not on file Legal Sex Male 5:08 PM CDT Gender Identity Not on file Sexual Orientation Not on file documented as of this encounter Miscellaneous Notes * Cerner Conversion Note - Rey ProviderMD - 06/11/2020 4:08 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 Your health care provider may also give you more specific instructions. If you have problems or questions, contact your health care provider. What can I expect after the procedure? After the procedure, it is common to have: ??? Bruising and tenderness at the catheter insertion area. Follow these instructions at home: Medicines ??? Take jutg-agq-hhgrwub and prescription medicines only as told by your health care provider. Insertion site care ??? Follow instructions from your health care provider about how to take care of your insertion site. Make sure you: ? Wash your hands with soap and water before you change your bandage (dressing). If soap and water are not available, use hand manager cosmetic. ? Change your dressing as told by your health care provider. ? Leave stitches (sutures), skin glue, or adhesive strips in place. These skin closures may need to stay in place for 2 weeks or longer. If adhesive strip edges start to loosen and curl up, you may trim the loose edges. Do not remove adhesive strips completely unless your health care provider tells you to do that. ??? Check your insertion site every day for signs of infection. Check for: ? Redness, swelling, or pain. ? Fluid or blood. ? Pus or a bad smell. ? Warmth. ??? Do not take baths, swim, or use a hot tub until your health care provider approves. ??? You may shower 24?48 hours after the procedure, or as directed by your health care provider. ? Remove the dressing and gently wash the site with plain soap and water. ? Pat the area dry with a clean towel. ? Do not rub the site. That could cause bleeding. ??? Do not apply powder or lotion to the site. Activity ??? For 24 hours after the procedure, or as directed by your health care provider: ? Do not flex or bend the affected arm. ? Do not push or pull heavy objects with the affected arm. ? Do not drive yourself home from the hospital or clinic. You may drive 24 hours after the procedure unless your health care provider tells you not to. ? Do not operate machinery or power tools. ??? Do not lift anything that is heavier than 10 lb (4.5 kg), or the limit that you are told, until your health care provider says that it is safe. ??? Ask your health care provider when it is okay to: ? Return to work or school. ? Resume usual physical activities or sports. ? Resume sexual activity. General instructions ??? If the catheter site starts to bleed, raise your arm and put firm pressure on the site. If the bleeding does not stop, get help right away. This is a medical emergency. ??? If you went home on the same day as your procedure, a responsible adult should be with you for the first 24 hours after you arrive home. ??? Keep all follow-up visits as told by your health care provider. This is important. Contact a health care provider if: ??? You have a fever. ??? You have redness, swelling, or yellow drainage around your insertion site. Get help right away if: ??? You have unusual pain at the radial site. ??? The catheter insertion area swells very fast. ??? The insertion area is bleeding, and the bleeding does not stop when you hold steady pressure on the area. ??? Your arm or hand becomes pale, cool, tingly, or numb. These symptoms may represent a serious problem that is an emergency. Do not wait to see if the symptoms will go away. Get medical help right away. Call your local emergency services (911 in the [place] Do not drive yourself to the hospital. Summary ??? After the procedure, it is common to have bruising and tenderness at the site. ??? Follow instructions from your health care provider about how to take care of your radial site wound. Check the wound every day for signs of infection. ??? Do not lift anything that is heavier than 10 lb (4.5 kg), or the limit that you are told, until your health care provider says that it is safe. This information is not intended to replace advice given to you by your health care provider. Make sure you discuss any questions you have with your health care provider. Document Released: 06/24/2011 Document Revised: 06/27/2018 Document Reviewed: 06/27/2018 [employer] Patient Education ? 2020 [employer] Moderate Conscious Sedation, Adult, Care After These instructions provide you with information about caring for yourself after your procedure. Your health care provider may also give you more specific instructions. Your treatment has been planned according to current medical practices, but problems sometimes occur. Call your health care provider if you have any problems or questions after your procedure. What can I expect after the procedure? After your procedure, it is common: ??? To feel sleepy for several hours. ??? To feel clumsy and have poor balance for several hours. ??? To have poor judgment for several hours. ??? To vomit if you eat too soon. Follow these instructions at home: For at least 24 hours after the procedure: ??? Do not: ? Participate in activities where you could fall or become injured. ? Drive. ? Use heavy machinery. ? Drink alcohol. ? Take sleeping pills or medicines that cause drowsiness. ? Make important decisions or sign legal documents. ? Take care of children on your own. ??? Rest. Eating and drinking ??? Follow the diet recommended by your health care provider. ??? If you vomit: ? Drink water, juice, or soup when you can drink without vomiting. ? Make sure you have little or no nausea before eating solid foods. General instructions ??? Have a responsible adult stay with you until you are awake and alert. ??? Take suts-voq-cmfaasf and prescription medicines only as told by your health care provider. ??? If you smoke, do not smoke without supervision. ??? Keep all follow-up visits as told by your health care provider. This is important. Contact a health care provider if: ??? You keep feeling nauseous or you keep vomiting. ??? You feel light-headed. ??? You develop a rash. ??? You have a fever. Get help right away if: ??? You have trouble breathing. This information is not intended to replace advice given to you by your health care provider. Make sure you discuss any questions you have with your health care provider. Document Released: 03/12/2014 Document Revised: 05/04/2018 Document Reviewed: 09/10/2016 [employer] Patient Education ? 2020 [employer] Angiogram, Care After This sheet gives you information about how to care for yourself after your procedure. Your health care provider may also give you more specific instructions. If you have problems or questions, contact your health care provider. What can I expect after the procedure? After the procedure, it is common to have bruising and tenderness at the catheter insertion area. Follow these instructions at home: Insertion site care ??? Follow instructions from your health care provider about how to take care of your insertion site. Make sure you: ? Wash your hands with soap and water before you change your bandage (dressing). If soap and water are not available, use hand manager cosmetic. ? Change your dressing as told by your health care provider. ? Leave stitches (sutures), skin glue, or adhesive strips in place. These skin closures may need to stay in place for 2 weeks or longer. If adhesive strip edges start to loosen and curl up, you may trim the loose edges. Do not remove adhesive strips completely unless your health care provider tells you to do that. ??? Do not take baths, swim, or use a hot tub until your health care provider approves. ??? You may shower 24?48 hours after the procedure or as told by your health care provider. ? Gently wash the site with plain soap and water. ? Pat the area dry with a clean towel. ? Do not rub the site. This may cause bleeding. ??? Do not apply powder or lotion to the site. Keep the site clean and dry. ??? Check your insertion site every day for signs of infection. Check for: ? Redness, swelling, or pain. ? Fluid or blood. ? Warmth. ? Pus or a bad smell. Activity ??? Rest as told by your health care provider, usually for 1?2 days. ??? Do not lift anything that is heavier than 10 lbs. (4.5 kg) or as told by your health care provider. ??? Do not drive for 24 hours if you were given a medicine to help you relax (sedative). ??? Do not drive or use heavy machinery while taking prescription pain medicine. General instructions ??? Return to your normal activities as told by your health care provider, usually in about a week. Ask your health care provider what activities are safe for you. ??? If the catheter site starts bleeding, lie flat and put pressure on the site. If the bleeding does not stop, get help right away. This is a medical emergency. ??? Drink enough fluid to keep your urine clear or pale yellow. This helps flush the contrast dye from your body. ??? Take thxd-ubp-lvqsecv and prescription medicines only as told by your health care provider. ??? Keep all follow-up visits as told by your health care provider. This is important. Contact a health care provider if: ??? You have a fever or chills. ??? You have redness, swelling, or pain around your insertion site. ??? You have fluid or blood coming from your insertion site. ??? The insertion site feels warm to the touch. ??? You have pus or a bad smell coming from your insertion site. ??? You have bruising around the insertion site. ??? You notice blood collecting in the tissue around the catheter site (hematoma). The hematoma may be painful to the touch. Get help right away if: ??? You have severe pain at the catheter insertion area. ??? The catheter insertion area swells very fast. ??? The catheter insertion area is bleeding, and the bleeding does not stop when you hold steady pressure on the area. ??? The area near or just beyond the catheter insertion site becomes pale, cool, tingly, or numb. These symptoms may represent a serious problem that is an emergency. Do not wait to see if the symptoms will go away. Get medical help right away. Call your local emergency services (911 in the [place] Do not drive yourself to the hospital. Summary ??? After the procedure, it is common to have bruising and tenderness at the catheter insertion area. ??? After the procedure, it is important to rest and drink plenty of fluids. ??? Do not take baths, swim, or use a hot tub until your health care provider says it is okay to do so. You may shower 24?48 hours after the procedure or as told by your health care provider. ??? If the catheter site starts bleeding, lie flat and put pressure on the site. If the bleeding does not stop, get help right away. This is a medical emergency. This information is not intended to replace advice given to you by your health care provider. Make sure you discuss any questions you have with your health care provider. Document Released: 12/08/2005 Document Revised: 05/04/2018 Document Reviewed: 04/26/2017 [employer] Patient Education ? 2020 [employer]. documented in this encounter Plan of Treatment Not on file documented as of this encounter Visit Diagnoses Not on filedocumented in this encounter
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
--- OUTSIDE RECORDS SUMMARY | 2024-11-27 11:18 | XMS_ITS | Encounter Summary ---
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 Name Role Phone Unavailable Primary Care Provider Unavailabl e Encounter Details Date Type Department Care Team (Late st Contact Info) Description 06/11/2020 Transcribed Document [facility] [place] Family Medicine [facility] [place] [address] ProviderRey MD [address] [place], [place] [id number] Social History Tobacco Use Types Packs/Day Years Used Date Smoking Tobacco: Never Assessed Sex and Gender Information Value Date Recorded Sex Assigned at Not on file Legal Sex Male 5:08 PM CDT Gender Identity Not on file Sexual Orientation Not on file documented as of this encounter Miscellaneous Notes * Cerner Conversion Note - Rey ProviderMD - 06/11/2020 9:30 AM FINAL 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 Be Broadband Technician: Marry Willis MD Chief Complaint Abnormal Stress test History of Present Illness 79 year old male with history of HTN, HLD has been having intermittent exertional chest pain with FC II/III dyspnea. Can not walk more than 0.5 miles over past 2-3 months. He underwent Lexiscan on 06/03/2020 which showed ;ateral to apical reversible area of ischemia. Resting EF 41% dropped to 35% at stress. Denies prior smoking hx, family Hx of premature CAD or cardiomyopathy. Denies palpitations, syncope. Gained ~ 5 lbs over past months. He presents today for elective LHC with Dr. Obed Tan MD Review of Systems Constitutional: Negative except as documented in history of present illness. Eye: Negative except as documented in history of present illness. Ear/Nose/Mouth/Throat: Negative except as documented in history of present illness. Respiratory: Negative except as documented in history of present illness. Cardiovascular: Negative except as documented in history of present illness. Gastrointestinal: Negative except as documented in history of present illness. Genitourinary: Negative except as documented in history of present illness. Hematology/Lymphatics: Negative except as documented in history of present illness. Endocrine: Negative except as documented in history of present illness. Immunologic: Negative except as documented in history of present illness. Musculoskeletal: Negative except as documented in history of present illness. Integumentary: Negative except as documented in history of present illness. Neurologic: Alert and oriented X4. Psychiatric: Negative except as documented in history of present illness. Health Status Allergies (1) Active Reaction No Known Allergies None Documented Home Medications (5) Active aspirin 81 mg oral tablet 81 mg = 1 Tab, Oral, Daily Avodart 0.5 mg oral capsule 0.5 mg = 1 Cap, Oral, Daily Flomax 0.4 mg oral capsule 0.4 mg = 1 Cap, Oral, Daily pantoprazole 40 mg oral delayed release tablet 40 mg = 1 Tab, Oral, Daily temazepam 30 mg oral capsule 30 mg = 1 Cap, PRN, Oral, At Bedtime Allergies: Allergic Reactions (Selected) No Known Allergies Current medications: (Selected) Prescriptions Prescribed pantoprazole 40 mg oral delayed release tablet: 1 Tab, Oral, Daily, 30 Tab Documented Medications Documented Avodart 0.5 mg oral capsule: 1 Cap, Oral, Daily, 30 Cap Flomax 0.4 mg oral capsule: 1 Cap, Oral, Daily, 30 Cap aspirin 81 mg oral tablet: 1 Tab, Oral, Daily, 30 Tab temazepam 30 mg oral capsule: 1 Cap, Oral, At Bedtime, PRN: for sleep, No qualifying data available Problem list: All Problems Hemorrhoids / [id number] / Confirmed, Active Problems (1) Hemorrhoids Histories No education data available. Social & Psychosocial Habits Tobacco 05/22/2014 Tobacco Use Within Last Twelve Months No Smoking Status Never smoker Past Medical History: Active HLD - Hyperlipidemia (380736043) HTN - Hypertension ([id number]) Family History: Father Gastric cancer Comments: 06/10/2020 10:18 DAVID NO RN stomach cancer Mother Heart disease Procedure history: CHOLECYSTECTOMY (09954). Hand Surgery. Hernia Repair. Physical Examination VS/Measurements No qualifying data available General: Alert and oriented, No acute distress. Eye: Pupils are equal, round and reactive to light, Vision unchanged. HENT: Normocephalic, Oral mucosa is moist. Neck: Supple, Non-tender, No carotid bruit, No jugular venous distention. Respiratory: Lungs are clear to auscultation, Respirations are non-labored, Symmetrical chest wall expansion. Cardiovascular: Normal rate, Regular rhythm, No murmur, Good pulses equal in all extremities. Gastrointestinal: Soft, Non-distended, Normal bowel sounds. Musculoskeletal: Normal range of motion, Normal strength. Integumentary: Warm, Dry, [place]. Neurologic: Alert, Oriented. Psychiatric: Cooperative, Appropriate mood & affect. Review / Management Results review: No qualifying data available. Documentation reviewed: Records from referring physician. Impression and Plan IMPRESSION: Exertional CP/FC II/III dyspnea. Lexiscan myoview 06/03/2020 Lateral to apical reversible area of ischemia. Resting EF 41% dropped to 35% at stress HTN HLD BPH PLAN; Left Heart Catheterization via right radial artery. Risks and Benefits discussed. Patient wishes to proceed. Add Entresto 24/26 mg BID. CHF education including 3 Gram Na/2 Liter fluid restriction, daily wt. BP log. Follow up w/ Dr. Marry Willis for CHF medication dose escalation. MOI evaluation per Dr. Willis. Addendum-Mild CAD, EF ~ 35%. Check proBNP, sTSH/T4, Ferritin. Electronically signed by Eliud Sanchez Conversion Corporate Development Officer Cerner at 09/22/2022 2:06 PM CDT documented in this encounter Plan of Treatment Not on file documented as of this encounter Visit Diagnoses Not on filedocumented in this encounter
--- OUTSIDE RECORDS SUMMARY | 2024-11-27 11:18 | XMS_ITS | Encounter Summary ---
Author Organization [employer] [facility] Address [address] [place] [id number] Care Team Providers Care Clinical Safety Manager Name Role Phone Unavailable Primary Care Provider Unavailabl e Encounter Details Date Type Department Care Team (Late st Contact Info) Description 06/11/2020 Transcribed Document [facility] [place] Family Medicine [facility] [place] [address] ProviderRey MD [address] [place] [address] Social History Tobacco Use Types Packs/Day Years Used Date Smoking Tobacco: Never Assessed Sex and Gender Information Value Date Recorded Sex Assigned at Not on file Legal Sex Male 5:08 PM CDT Gender Identity Not on file Sexual Orientation Not on file documented as of this encounter Miscellaneous Notes * Cerner Conversion Note - Rey ProviderMD - 06/11/2020 3:59 PM [facility] [place] [address] ANGI RUBIO :1940 Visit Time:06/11/2020 Your Visit Summary Your Care Team Admitting Physician - OBED TAN MD-CAR Attending Physician - OBED TAN MD-CAR Primary Care Physician - GALE CHEUNG (REF)POONAM Referring Physician - OBED TAN MD-CAR Your Diagnosis Abnormal result of other cardiovascular function study, Abnormal result of other cardiovascular function study Discharge Vitals Temperature 36.2 ??C Heart Rate (Monitored) 62 Respiratory Rate 15 Blood Pressure 136/71 What to do next Instructions From Your Care Team Begin Entresto one pill twice a day. Prescription called in to your pharmacy Do not lift over one pound with your right arm for the next 2 days. Resume your diet as tolerated. You may remove the dressing from your right arm tomorrow and shower. Gently clean your arm with soap and water daily. Do not soak your arm under water until the incisions are fully healed. If bleeding, apply pressure as shown and call 911. Weigh daily, report any sudden weight gain to Dr. Huang. Check your blood pressure twice a day and write the results down. Take the results with you to Dr. Tan. Do not drive for 24 hours after the procedure. Follow post radial (arm) instructions.....see attached sheet. Follow-Up Appointments Follow Up with RUBIN HUANG When Within 1 month Comments Keep your appointment with DR. Huang as scheduled....notify sooner if any problems Where: [address] [place] [address] [place] [address]- Business (1) Medications What How Much When Instructions Next Dose aspirin 81 Milligram(s) Oral At Bedtime pantoprazole 40 Milligram(s) Oral At Bedtime dutasteride (Avodart 0.5 mg oral capsule) 1 Capsule(s) Oral At Bedtime tamsulosin (Flomax 0.4 mg oral capsule) 1 Capsule(s) Oral At Bedtime temazepam (temazepam 30 mg oral capsule) 1 Capsule(s) Oral At Bedtime as needed for for sleep Take your medications faithfully. Do NOT skip medication. Do NOT stop taking medications without the direction of a physician. Carry a list of your medications with you at all times, and take this medication list with you to your first follow up visit. Report any side effects. Avoid herbal remedies unless discussed with your physician. As part of your treatment plan, your physician may have prescribed a limited course of a controlled substance. This medication may be given to help people with moderate or severe pain or for other medical conditions, but there are risks involved with treatment. Common side effects may include nausea, constipation, drowsiness, sweating, itching, dry mouth, and rash. More serious side effects may include cognitive and motor impairment, like problems with thinking, concentrating, alertness, and movement (e.g. slowed reflexes), and driving and operating heavy machinery can be dangerous. It is important for you to talk to your physician if you have these side effects or questions. These controlled substances can produce physical dependence and be habit-forming if taken for an extended period of time, which means that the body has gotten used to them and may experience withdrawal symptoms if they are abruptly stopped. Withdrawal symptoms can include runny nose, sweating, goose bumps, diarrhea, abdominal cramping, rapid heartbeat, difficulty sleeping, and nervousness. Please dispose of unused and medications per your retail pharmacy guidance. Allergies No Known Allergies Immunizations This Visit No Immunizations Found Education Materials Moderate Conscious Sedation, Adult, Care After These [...] you are awake and alert. ??? Take espl-yml-bgcnfhf and prescription medicines only as told by [...] 03/12/2014 Document Revised: 05/04/2018 Document Reviewed: 09/10/2016 Elsevier Patient Education ?? 2020 [employer] Radial Fracture A radial fracture is a break in the radius bone. The radius is a bone in the forearm, on the same side as the thumb. The forearm is the part of the arm that is between the elbow and the wrist. A radial fracture near the wrist (distal radialfracture) is the most common type of broken arm. A fracture can also occur near the elbow (radial head fracture). What are the causes? The most common cause of a radial fracture is falling with the arm outstretched. Other causes include: ??? An accident, such as a car or bike accident. ??? A hard, direct hit to the forearm. What increases the risk? You may be at greater risk for a radial fracture if you: ??? Are female. ??? Are an older adult. ??? Play contact sports. ??? Have a condition that causes your bones to become thin and brittle (osteoporosis). What are the signs or symptoms? A radial fracture causes pain immediately after the injury. Other signs and symptoms may include: ??? An abnormal bend or bump in the arm (deformity). ??? Swelling. ??? Bruising. ??? Numbness or tingling in your arm and hand. ??? Limited movement of your arm and hand. How is this diagnosed? This condition may be diagnosed based on: ??? Your symptoms and medical history. ??? A physical exam. ??? An X-ray. How is this treated? Treatment depends on how severe your fracture is, where it is, and how the pieces of the broken bone line up with each other (alignment). ??? The first step may be for you to wear a temporary splint for a few days, until your swelling goes down. After the swelling goes down, you may get a cast, get a different type of splint, or have surgery. ??? If your broken bone is in good alignment, you will need to wear a splint or cast for up to 6 weeks. ??? If your broken bone is not aligned (is displaced), your health care provider will need to align the bone pieces. After alignment, you will need to wear a splint or cast for up to 6 weeks. To align your broken bone, your health care provider may: ? Move the bones back into position without surgery (closed reduction). ? Perform surgery to align the fracture and fix the bone pieces into place with metal screws, plates, or wires (open reduction and internal fixation, ORIF). ? Perform surgery to align the fracture and fix the bone pieces into place with pins that are attached to a stabilizing bar outside your skin (external fixation). Treatment may also include: ??? Having your cast changed after 2???3 weeks. ??? Physical therapy. ??? Follow-up visits and X-rays to make sure you are healing. Follow these instructions at home: If you have a splint: ??? Wear it as told by your health care provider. Remove it only as told by your health care provider. ??? Loosen the splint if your fingers tingle, become numb, or turn cold and blue. ??? Keep the splint clean and dry. If you have a cast: ??? Do not stick anything inside the cast to scratch your skin. Doing that increases your risk for infection. ??? Check the skin around the cast every day. Tell your health care provider about any concerns. ??? You may put lotion on dry skin around the edges of the cast. Do not put lotion on the skin underneath the cast. ??? Keep the cast clean and dry. Bathing ??? Do not take baths, swim, or use a hot tub until your health care provider approves. Ask your health care provider if you may take showers. You may only be allowed to take sponge baths. ??? If your splint or cast is not waterproof: ? Do not let it get wet. ? Cover it with a watertight covering when you take a bath or a shower. Activity ??? Do not lift anything with your injured arm. ??? Do not use the injured arm to support your body weight until your health care provider says that you can. ??? Ask your health care provider what activities are safe for you during recovery, and ask what activities you need to avoid. Managing pain, stiffness, and swelling ??? If directed, put ice on painful areas: ? If you have a removable splint, remove it as told by your health care provider. ? Put ice in a plastic bag. ? Place a towel between your skin and the bag, or between your cast and the bag. ? Leave the ice on for 20 minutes, 2???3 times a day. ??? Move your fingers often to avoid stiffness and to lessen swelling. ??? Raise (elevate) your arm above the level of your heart while you are sitting or lying down. General instructions ??? Do not put pressure on any part of the cast or splint until it is fully hardened, if applicable. This may take several hours. ??? Take bpwl-lhj-xbwfaay and prescription medicines only as told by your health care provider. ??? Do not drive until your health care provider approves. You should not drive or use heavy machinery while taking prescription pain medicine. ??? Do not use any products that contain nicotine or tobacco, such as cigarettes and e-cigarettes. These can delay bone healing. If you need help quitting, ask your health care provider. ??? Keep all follow-up visits as told by your health care provider. This is important. Contact a health care provider if you have: ??? Pain that does not get better with medicine. ??? Swelling that gets worse. ??? A bad smell coming from your cast. Get help right away if: ??? You cannot move your fingers. ??? You have severe pain. ??? Your fingers or your hand: ? Become numb, cold, or pale. ? Turn a bluish color. Summary ??? A radial fracture is a break in the radius bone. The radius is in the forearm, on the same side as the thumb. ??? Treatment depends on how severe your fracture is, where it is, and how the pieces of the broken bone line up with each other. ??? A splint or cast may be needed to help the fracture heal. A more severe break may require surgery. This information is not intended to replace advice given to you by your health care provider. Make sure you discuss any questions you have with your health care provider. Document Released: 11/02/2006 Document Revised: 05/16/2018 Document Reviewed: 05/16/2018 Elsevier Patient Education ?? 2020 Elsevier Inc. Angiogram, Care After This sheet gives [...] and water are not available, use hand weight loss physician. ? Change your dressing as told by [...] care provider approves. ??? You may shower 24???48 hours after the procedure or as told [...] by your health care provider, usually for 1???2 days. ??? Do not lift anything that [...] contrast dye from your body. ??? Take mzpe-bus-wpnddmv and prescription medicines only as told by [...] okay to do so. You may shower 24???48 hours after the procedure or as told [...] 12/08/2005 Document Revised: 05/04/2018 Document Reviewed: 04/26/2017 [employer] Patient Education ?? 2020 [employer]. sacubitril and valsartan (sak UE bi tril and rachna ALLISON soto) Entresto What is the most important information I should know about sacubitril and valsartan? Do not use if you are , and tell your doctor right away if you become . If you have diabetes, do not use sacubitril and valsartan together with any medication that contains aliskiren (a blood pressure medicine). What is sacubitril and valsartan? Sacubitril and valsartan are blood pressure medicines. Valsartan is an angiotensin II receptor davey (sometimes called an ARB). Sacubitril and valsartan is a combination medicine that is used in certain people with chronic heart failure. This medicine helps lower the risk of needing to be hospitalized when symptoms get worse, and helps lower the risk of from heart failure. Sacubitril and valsartan is also used to treat heart failure in children who are at least 1 year old. Sacubitril and valsartan is usually given together with other heart medications. Sacubitril and valsartan may also be used for purposes not listed in this medication guide. What should I discuss with my healthcare provider before taking sacubitril and valsartan? You should not use this medicine if you are allergic to sacubitril or valsartan (Ling), or if you have ever had a severe allergic reaction to a blood pressure medication such as: ?? an MEÑO inhibitor--benazepril, captopril, enalapril, fosinopril, lisinopril, moexipril, perindopril, quinapril, ramipril, trandolapril (Lotensin, Vasotec, Prinivil, Accupril, Mavik, and others); or ?? an ARB--azilsartan, candesartan, eprosartan, irbesartan, losartan, olmesartan, telmisartan, valsartan (Atacand, Avapro, Benicar, Diovan, Edarbi, Micardis, Teveten, and others). You should not take sacubitril and valsartan within 36 hours before or after you have taken any MEÑO inhibitor medication. If you have diabetes, do not use sacubitril and valsartan together with any medication that contains aliskiren (a blood pressure medicine). You may also need to avoid taking sacubitril and valsartan with aliskiren if you have kidney disease. Tell your doctor if you have ever had: ?? liver disease; ?? hereditary angioedema; or ?? if you are on a yeu-wqgj-ngnu. Do not use if you are , and tell your doctor right away if you become . Sacubitril and valsartan can cause injury or to the unborn baby if you take the medicine during your second or third trimester. You should not breast-feed while using this medicine. How should I take sacubitril and valsartan? Follow all directions on your prescription label and read all medication guides or instruction sheets. Your doctor may occasionally change your dose. Use the medicine exactly as directed. You may take this medicine with or without food. Sacubitril and valsartan doses are based on weight in children. Your child's dose needs may change if the child gains or loses weight. If you cannot swallow a tablet whole, a pharmacist can make an oral suspension (liquid). Tell the doctor if the person taking this medicine has trouble swallowing the tablet. Shake the oral suspension (liquid) before you measure a dose. Use the dosing syringe provided, or use a medicine dose-measuring device (not a kitchen spoon). Your blood pressure will need to be checked often. Your kidney function may also need to be checked. Store at room temperature away from moisture and heat. Throw away any oral suspension not used within 15 days after it was mixed. Do not keep the oral suspension in a refrigerator. What happens if I miss a dose? Take the medicine as soon as you can, but skip the missed dose if it is almost time for your next dose. Do not take two doses at one time. What happens if I overdose? Seek emergency medical attention or call the Poison Help line at . What should I avoid while taking sacubitril and valsartan? Do not use potassium supplements or salt substitutes, unless your doctor has told you to. Avoid getting up too fast from a sitting or lying position, or you may feel dizzy. What are the possible side effects of sacubitril and valsartan? Get emergency medical help if you have signs of an allergic reaction: hives; difficulty breathing; swelling of your face, lips, tongue, or throat. You may be more likely to have an allergic reaction if you are -[place]izen [place]. Also call your doctor at once if you have: ?? a light-headed feeling, like you might pass out; ?? extreme tiredness; ?? high potassium--slow heart rate, weak pulse, muscle weakness, tingly feeling; or ?? kidney problems--little or no urination, rapid weight gain, painful or difficult urination, swelling in your hands, feet, or ankles. Common side effects may include: ?? dizziness; or ?? cough. This is not a complete list of side effects and others may occur. Call your doctor for medical advice about side effects. You may report side effects to FDA at 7-611-API-0464. What other drugs will affect sacubitril and valsartan? Tell your doctor about all your current medicines and any you start or stop using, especially: ?? aliskiren; ?? lithium; ?? any other heart or blood pressure medicines; ?? a diuretic or 'water pill'; ?? medicine or mineral supplements that contain potassium; or ?? NSAIDs (nonsteroidal anti-inflammatory drugs)--aspirin, ibuprofen (Advil, Motrin), naproxen (Aleve), celecoxib, diclofenac, indomethacin, meloxicam, and others. This list is not complete. Other drugs may affect sacubitril and valsartan, including prescription and cbjz-nsk-eyynovl medicines, vitamins, and herbal products. Not all possible drug interactions are listed here. Where can I get more information? Your pharmacist can provide more information about sacubitril and valsartan. Remember, keep this and all other medicines out of the reach of children, never share your medicines with others, and use this medication only for the indication prescribed. Every effort has been made to ensure that the information provided by [employer]. ('[employer]') is accurate, up-to-date, and complete, but no guarantee is made to that effect. Drug information contained herein may be time sensitive. [employer] information has been compiled for use by healthcare practitioners and consumers in the [place] and therefore [employer] does not warrant that uses outside of the [place] are appropriate, unless specifically indicated otherwise. [employer] drug information does not endorse drugs, diagnose patients or recommend therapy. [employer] drug information is an informational resource designed to assist licensed healthcare practitioners in caring for their patients and/or to serve consumers viewing this service as a supplement to, and not a substitute for, the expertise, skill, knowledge and judgment of healthcare practitioners. The absence of a warning for a given drug or drug combination in no way should be construed to indicate that the drug or drug combination is safe, effective or appropriate for any given patient. [employer] does not assume any responsibility for any aspect of healthcare administered with the aid of information [employer] provides. The information contained herein is not intended to cover all possible uses, directions, precautions, warnings, drug interactions, allergic reactions, or adverse effects. If you have questions about the drugs you are taking, check with your doctor, nurse or pharmacist. Copyright 2445-6163 [employer]. Version: 4.01. Revision Date: 04/24/2019. Emergency Awareness and Preventative Care STROKE is an EMERGENCY Every Minute Counts Act FAST and Check for these signs: FACE Does the face look uneven? ARM Does one arm drift down? SPEECH Does their speech sound strange? TIME Call at any sign of stroke Stroke Risk Factors Atrial Fibrillation (irregular heartbeat) Diabetes Family history of stroke Heart Disease Heavy alcohol use High Blood Pressure High Cholesterol Physical inactivity and obesity Smoking Cigarette Smoking The facts are clear, cigarette smoking will shorten your life. Smoking can cause many illnesses along the way. As a healthcare provider, we recommend that you stop smoking. Assistance with quitting is available by contacting 5-907-LKJR-NOW. This is a free resource providing counseling, support, and referral. Or you may contact your personal physician. National Suicide Prevention Lifeline: The National Suicide Prevention Lifeline is a national network of local crisis centers that provides free and confidential emotional support to people in suicidal crisis or emotional distress 24 hours a day, 7 days a week. Don't Wait! Stop a Heart Attack Before it Starts What is a heart attack? A heart attack is damage or to a part of the heart from severely decreased or lack of blood flow to the heart. Over time, arteries can become narrow from the buildup of fat and cholesterol, which is called plaque. The plaque can rupture causing a blood clot to form. When the blood clot forms, the artery can become severely narrowed or completely blocked, causing a heart attack. Heart attack is the leading cause of in the [place]. 85% of muscle damage occurs within the first 2 hours. Delay in the recognition of heart attack symptoms increases the chances of . Know the early symptoms of a heart attack: Nausea Feeling of fullness in chest Jaw Pain Pain that travels down one or both arms Fatigue/being tired Anxiety Back Pain Chest pressure, squeezing, or discomfort Shortness of breath Sweating, or a cold sweat Feeling of impending doom There are unusual signs of a heart attack, too! Women, the elderly, and diabetics may present with atypical symptoms: Fainting/dizziness Weakness Confusion Risk Factors for a Heart Attack Some heart disease risk factors, such as age and family history, cannot be changed. Others, like smoking and lack of exercise, can be changed. Smoking High Cholesterol High Blood Pressure Family History Obesity Age Gender (Males are at higher risk) Lack of Exercise Diabetes Diet Stress Excessive Alcohol Intake If you or someone you know is experiencing the signs and symptoms of a heart attack, DON???T DELAY. Call immediately and seek help. If someone collapses, perform CPR! Do not attempt to drive if you are having symptoms of heart attack. Hands-Only CPR Why Hands-Only CPR? Hands-Only CPR has been shown to be as effective as conventional CPR for cardiac arrests that occur outside of a hospital. Survival depends on immediately receiving CPR from someone nearby. How do you perform Hands-Only CPR? There are two easy steps: Call if you see a teen or adult collapse Push hard and fast in the center of the chest at a beat of 100 beats per minute. Save a life! 4 WAYS TO GET AHEAD OF SEPSIS SEPSIS is a MEDICAL EMERGENCY. Time matters! Infections put you and your family at risk for a life-threatening condition called sepsis. Sepsis is the body's extreme response to an infection. It is life-threatening, and without timely treatment, sepsis can rapidly lead to tissue damage, organ failure, and . Sepsis happens when an infection you already have-in your skin, lungs, urinary tract or somewhere else-triggers a chain reaction throughout your body. 1 PREVENT INFECTIONS Take good care of chronic conditions. Talk to your doctor about getting the recommended vaccines. 2 PRACTICE GOOD HYGIENE Wash your hands frequently. Keep cuts or open sores clean and covered until they are healed. 3 KNOW THE SYMPTOMS Confusion or disorientation Shortness of breath High heart rate Fever, shivering, or feeling very cold Extreme pain or discomfort Clammy or sweaty skin 4 ACT FAST Get medical care IMMEDIATELY if you suspect sepsis or if you have an infection that is not getting better or is getting worse. To learn more about sepsis and how to prevent infections, visit www.cdc.gov/sepsis. Test Results Laboratory or Other Results This Visit (last charted value for your 06/11/2020 visit) Hematology 06/11/2020 10:14 AM Platelet Count: 178 K/uL -- Normal range between ( 163 and 369 ) Cardiac Specific Markers 06/11/2020 2:06 PM ProBNP: 267 pg/mL -- Normal range between ( 0 and 450 ) Endocrinology 06/11/2020 2:06 PM TSH: 1.330 mcInt Units/mL -- Normal range between ( 0.358 and 3.740 ) FT4: 2.57 ng/dL -- Normal range between ( 0.76 and 1.46 ) Iron Studies 06/11/2020 2:06 PM Ferritin Level: 50.2 ng/mL -- Normal range between ( 26.0 and 388.0 ) Vascular Ultrasound 06/11/2020 1:26 PM VL Vascular Access: VL Vascular Access Patient Name:ANGI RUBIO I have received and understand this information and was given the opportunity to ask questions. Patient/Field Associate Name: Patient/Field Associate Signature: Relationship to Patient: Clinician/Hospital Field Associate Signature: Date: documented in this encounter Plan of Treatment Not on file documented as of this encounter Visit Diagnoses Not on filedocumented in this encounter
--- OUTSIDE RECORDS SUMMARY | 2024-11-27 11:19 | XMS_ITS | Encounter Summary ---
Author Organization [employer] Address [address] [place] [address] Care Team Providers Care Charge Auditor Name Role Phone Unavailable Primary Care Provider Unavailabl e Encounter Details Date Type Department Care Team (Late st Contact Info) Description 06/11/2020 Transcribed Document [facility] [place] Family Medicine [facility] [place] [address] ProviderRey MD [address], [place] [id number] Social History Tobacco Use Types Packs/Day Years Used Date Smoking Tobacco: Never Assessed Sex and Gender Information Value Date Recorded Sex Assigned at Not on file Legal Sex Male 5:08 PM CDT Gender Identity Not on file Sexual Orientation Not on file documented as of this encounter Miscellaneous Notes * Cerner Conversion Note - Historical ProviderMD - 06/11/2020 5:06 PM SURFACE ROOM SH[facility]IAN Nursing Discharge Summary Entered On: 06/11/2020 17:07 EST Performed On: 06/11/2020 17:06 EST by JACI SPARKS RN Discharge Documentation Discharge Date/Time : 06/11/2020 16:15 EST Patient Disposition, General : Discharge Discharge To : Home with ambulatory/outpatient follow-up Mode Of Departure, General Discharge : Ambulatory Accompanied By, Discharge : Friend, Spouse IV Discontinued : Yes Personal Belongings With Patient : Yes Prescriptions Given to Patient : Called to pharmacy Discharge Instructions Reviewed With, Opportunity For Questions Given : Patient, Spouse Patient Education Completed : Yes Teaching Method : Explanation, Printed materials Teaching Evaluation : Returns demonstration, Verbalizes understanding JACI SPARKS RN - 06/11/2020 17:06 EST Electronically signed by [facility] Conversion Drainage Engineer Cerner at 09/22/2022 1:58 PM CDT documented in this encounter Plan of Treatment Not on file documented as of this encounter Visit Diagnoses Not on filedocumented in this encounter
--- OUTSIDE RECORDS SUMMARY | 2024-11-27 11:19 | XMS_ITS | Clinical Summary ---
Author Organization [employer] Address [address] [place] [address] Care Team Providers Care Cross Tie Maker Name Role Phone Unavailable Primary Care Provider Unavailabl e Social History Tobacco Use Types Packs/Day Years Used Date Smoking Tobacco: Never Assessed Sex and Gender Information Value Date Recorded Sex Assigned at Not on file Legal Sex Male 5:08 PM CDT Gender Identity Not on file Sexual Orientation Not on file Plan of Treatment Not on file
--- OUTSIDE RECORDS SUMMARY | 2024-11-27 11:19 | XMS_ITS | Data Portability ---
Author Organization [facility] & [facility] Address [address] [place] [id number] Care Team Providers Care Medical Assistant Internal Medicine Name Role Phone GALE BE Primary Care Provider Assessment No assessment recorded. Plan of Treatment Reminders Order Date Submit Date Provider Last Modified By Organization Details Last Modified Time Details Appointments None recorded. Lab None recorded. Referral None recorded. Procedures None recorded. Surgeries None recorded. Imaging None recorded. Medication Orders methocarbam ol 500 mg tablet 2023 024 [facility] #[id number], [address] [place], [address], 4 15:19:20 Patient TargetsNo targets recorded. Patient InstructionsNo instructions recorded. Reason for Referral None Reported. Results Created Date Observation Date Name Description Value Unit Range Abnormal Flag Note LastModifiedBy Organization Detail LastModifiedTime 01/16/20 24 10/11/2023 CT, head + brain , w/o contr ast No observ ation record ed. [email or web address] Not Available 01/16 09:31:41 Result Notes None recorded. Problems Name Problem SNOMED Code Status Onset Date Resolution Date Notes Provider Name and Address Organization Details Recorded Time Headache 23228951 Active 2023 Adri paula [facility] & [place] 4 14:40:09 New daily persistent headache 4805297933029 05 Active 2023 Lana Pollard, DO [address] , [place], [address] , [facility] & [place] 15:10:23 Tension-ty pe headache 626646577 Active 2023 Lana Pollard, DO [address], [place], [address] , [facility] [place] & [place] 15:16:09 Problem Notes None recorded. Procedures Surgical History Date Name Laterality Status Provider Name and Address Organization Details Recorded Time cardiac pacemaker procedure completed Adri CALLEJAS - [facility]NT [facility] & [place] 12/06/2023 14:41:59 Cholecystectomy completed Adri Dewey [facility]OR - [facility] & [place] 12/06/2023 14:42:07 Fragmenting of kidney stone completed Adri Dewey JÚNIOR - [facility]NT [facility] & [place] 12/06/2023 14:42:13 hernia repair completed Adri Dewey [facility] & [place] 12/06/2023 14:42:21 Imaging Results None recorded. Procedure [...] Address Organization Details Last Updated DateTime 4 295653. 83 g 38.7 kg/m2 182.88 cm 97 % 97 % 88 /min 110 mm[Hg] 68 mm[Hg] [facility] [place] 14:50:12 Social History Question Answer Notes LastModified by [employer] Details LastModified Time Tobacco Smoking Status Never Smoker Adri Palomoamada paula [facility] [place] 12/06/2023 14:41:16 What Is Your Level Of Caffeine Consumption? Moderate Information not available 12/06/2023 What Is Your Relationship Status? Lives With Information not available 12/06/2023 Are You Currently In School? No Diploma Information not available 12/06/2023 Sex: Unknown Functional Status Question Answer Note LastModified by [employer] Details LastModified Time Do you use any [...] Response Atrial Fibrillation Y Kidney Stones Y Pacemaker Y Sinusitis Y Headaches Y Heart Problems Y Ear or Hearing Problems Y Mental Illness Y Diabetes Y Congestive Heart Failure (CHF) Y Heart Disease Y Hypertension Y Past Encounters Encounter ID Performer Location Encounter Start Date Encounter Closed Date Diagnosis/Indication Diagnosis SNOMED-CT Code Diagnosis ICD10 Code Diagnosis Note [id number] Lana Pollard, Z[facility] [address] [place] [address] 12/06/2023 14:34:12 12/06/2023 15:31:05 Tension-type headache 219812622 G44.209 New daily headaches for the last [...] OF [place] (MEDICARE SUPPLEMENT) [id number] Kuldeep Leroy [id number] Kuldeep Leroy 10/20/2024 1 [place] Kuldeep Leroy [id number] Kuldeep Leroy Notes Date Note Type Note Provider Name and Address Organization Details Recorded Time 12/06/2023 text/html 83 y/o right segal ded male here for neurologic consultation requested by Dr Be regarding headaches. Kuldeep is accompanied by his today. Kuldeep reports having a constant headache for the last two months. It started as a dull headache and gradually got worse.He went to [place] [facility] on 10/11/23 due to the headache. [...] last couple of weeks. Lana Pollard, DO [address], [place], [address], [facility] [place] & [place] 12/06/2023 15:41:45
--- OUTSIDE RECORDS SUMMARY | 2024-11-27 11:19 | XMS_ITS | Encounter Summary ---
Author Organization [employer] Address [address] [place] [address] Care Team Providers Care Senior Data Integration Developer Name Role Phone Unavailable Primary Care Provider Unavailabl e Encounter Details Date Type Department Care Team (Late st Contact Info) Description 06/11/2020 Transcribed Document [facility] [place] Family Medicine [facility] [place] [address] ProviderRey MD [address], [place] [id number] Social History Tobacco Use Types Packs/Day Years Used Date Smoking Tobacco: Never Assessed Sex and Gender Information Value Date Recorded Sex Assigned at Not on file Legal Sex Male 5:08 PM CDT Gender Identity Not on file Sexual Orientation Not on file documented as of this encounter Miscellaneous Notes * Cerner Conversion Note - Rey ProviderMD - 06/11/2020 1:19 PM FISCAL OFFICER DATE OF SERVICE: LEFT HEART CATHETERIZATION REPORT. INDICATION: New diagnosis of cardiomyopathy, dyspnea, and lateral/apical ischemia by Lexiscan Myoview perfusion study. ADDITIONAL REFERRING PHYSICIAN: Dr. Jay Be PROCEDURE: Standard left heart catheterization. TECHNIQUE: A 5/6-Pitcairn Islander sheath was placed in the right radial artery. 5 mg of verapamil, 50 units/kg of heparin were administered via the radial artery sheath. John catheter was used for selective angiography of left and right coronary arteries and advanced into the left ventricle for left ventricle pressure assessment. The John catheter was switched out for 6-P[place] Islander pigtail catheter. Left ventriculogram was performed using less than 20 mL in the right anterior oblique projection. Pressures were measured and pullback of the catheter from the left ventricle into the ascending aorta. The radial artery sheath was then removed and the access site successfully compressed using a TR band. No complications. The patient underwent moderate conscious sedation for the procedure. Intravenous Versed and fentanyl were administered. The patient was monitored for more than 1 hour and remained hemodynamically stable without respiratory distress. He was transferred to the postprocedural unit in stable condition. HEMODYNAMICS: Left ventricle: 137/16 mmHg Aorta: 137/77 mmHg CORONARY ANATOMY: Left main trunk: Normal Left anterior descending artery: Moderate caliber vessel which gives rise to a long moderate caliber first diagonal branch, small caliber additional diagonal branches before extending beyond the apex. Mild atherosclerosis. Circumflex artery: Large caliber vessel which gives rise to two small caliber high lateral branches moderate caliber lateral branch, moderate caliber posterolateral branch, and small caliber atrio-ventricular circumflex artery. Right coronary artery: Dominant. Small caliber vessel with gives rise to small posterior descending artery and posterolateral branch. Left ventricle: Normal left ventricular filling pressure without gradient across the aortic valve. Mild to moderate left ventricular systolic dysfunction with estimated EF ~ 35-40%. IMPRESSION: Angiographically, the patient has mild coronary atherosclerosis with mild - moderate left ventricular dysfunction. No indication for revascularization. Optimization of heart failure medication is recommended. /[id number] Mina Tan MD SSL/AQ / SSL / MODL /[id number] CC: Dr. Jay Willis MD documented in this encounter Plan of Treatment Not on file documented as of this encounter Visit Diagnoses Not on filedocumented in this encounter
--- OUTSIDE RECORDS SUMMARY | 2024-11-27 11:19 | XMS_ITS | Encounter Summary ---
Author Organization [employer] Address [address] [place] [address] Care Team Providers Care Card Reader Name Role Phone Unavailable Primary Care Provider Unavailabl e Encounter Details Date Type Department Care Team (Late st Contact Info) Description 06/11/2020 Transcribed Document [facility] [place] Family Medicine [facility] [place] [address] ProviderRey MD [address] [place] [address] Social History Tobacco Use Types Packs/Day Years Used Date Smoking Tobacco: Never Assessed Sex and Gender Information Value Date Recorded Sex Assigned at Not on file Legal Sex Male 5:08 PM CDT Gender Identity Not on file Sexual Orientation Not on file documented as of this encounter Miscellaneous Notes * Cerner Conversion Note - Rey ProviderMD - 06/11/2020 4:09 PM ELECTRICAL TESTER BATTERY [facility] [place] [address] ANGI RUBIO :1940 Visit Time:06/11/2020 Your Visit Summary Your Care Team Admitting Physician - OEBD MOSELEY MD-CAR Attending Physician - OBED [place] MD-CAR Primary Care Physician - GALE CHEUNG (REF)POONAM Referring Physician - OBED [place] MD-CAR Your Diagnosis Abnormal result of other [...] report any sudden weight gain to Dr. Haung. Check your blood pressure twice a day and write the results down. Take the results with you to Dr. Huang Do not drive for 24 hours after the procedure. Follow post radial (arm) instructions.....see attached sheet. Follow-Up Appointments Follow Up with RUBIN HUANG When Within 1 month Comments Keep your appointment with DR. Huang as scheduled....notify sooner if any problems Where: [address] [place] [address] [place] [address]- Business (1) Medications What How [...] This Visit No Immunizations Found Education Materials Radial Site Care This sheet gives you [...] these instructions at home: Medicines ??? Take zrxr-dng-ppmynmo and prescription medicines only as told by your health care provider. Insertion site care ??? Follow instructions from your health care provider about how to take care of your insertion site. Make sure you: ? Wash your hands with soap and water before you change your bandage (dressing). If soap and water are not available, use hand truck driver. ? Change your dressing as told by [...] You may shower 24???48 hours after the procedure, or as directed [...] 06/24/2011 Document Revised: 06/27/2018 Document Reviewed: 06/27/2018 [employer] Patient Education ?? 2020 [employer] Moderate Conscious Sedation, Adult, Care After [...] you are awake and alert. ??? Take rfku-fgr-eapkrzu and prescription medicines only as told by [...] 03/12/2014 Document Revised: 05/04/2018 Document Reviewed: 09/10/2016 [employer] Patient Education ?? 2020 [employer] Angiogram, Care After This sheet gives [...] and water are not available, use hand truck driver. ? Change your dressing as told by [...] contrast dye from your body. ??? Take nhub-ewr-aaphijk and prescription medicines only as told by [...] 12/08/2005 Document Revised: 05/04/2018 Document Reviewed: 04/26/2017 [employer] Patient Education ?? 2020 [employer]. sacubitril and valsartan (sak UE bi tril [...] or ?? if you are on a nkc-iexk-qdvu. Do not use if you are , [...] have an allergic reaction if you are -Mongolian. Also call your doctor at once if [...] may report side effects to FDA at 9-715-CVS-4393. What other drugs will affect sacubitril and [...] affect sacubitril and valsartan, including prescription and stwr-oxs-irtsalg medicines, vitamins, and herbal products. Not all [...] to ensure that the information provided by [employer]. ('[employer]') is accurate, up-to-date, and complete, but no guarantee is made to that effect. Drug information contained herein may be time sensitive. [employer] information has been compiled for use by healthcare practitioners and consumers in the [place] and therefore [employer] does not warrant that uses outside of the [place] are appropriate, unless specifically indicated otherwise. [employer]'s drug information does not endorse drugs, diagnose patients or recommend therapy. [employer] drug information is an informational resource designed [...] effective or appropriate for any given patient. [employer] does not assume any responsibility for any aspect of healthcare administered with the aid of information [employer] provides. The information contained herein is not intended to cover all possible uses, directions, precautions, warnings, drug interactions, allergic reactions, or adverse effects. If you have questions about the drugs you are taking, check with your doctor, nurse or pharmacist. Copyright 3900-1821 [employer]. Version: 4.01. Revision Date: 04/24/2019. Emergency Awareness [...] Assistance with quitting is available by contacting 2-151-MFGH-NOW. This is a free resource providing counseling, [...] was given the opportunity to ask questions. Patient/Equipment Processor Name: Patient/Equipment Processor Signature: Relationship to Patient: Clinician/Hospital Equipment Processor Signature: Date: documented in this encounter Plan of Treatment Not on file documented as of this encounter Visit Diagnoses Not on filedocumented in this encounter
--- OUTSIDE RECORDS SUMMARY | 2024-11-27 11:19 | XMS_ITS | Referral Summary ---
Author Organization [employer] Address [address] [place] [address] Care Team Providers Care Mine Laborer Name Role Phone Unavailable Primary Care Provider [...]
--- OUTSIDE RECORDS SUMMARY | 2024-11-27 11:19 | XMS_ITS | Encounter Summary ---
Author Organization [employer] Address [address] [place] [id number] Care Team Providers Care Cartographic Engineer Name Role Phone Unavailable Primary Care Provider Unavailabl e Encounter Details Date Type Department Care Team (Late st Contact Info) Description 06/11/2020 Transcribed Document [facility] [place] Family [place] [facility] [address] ProviderRey MD [address] [place] [address] Social History Tobacco Use Types Packs/Day Years Used Date Smoking Tobacco: Never Assessed Sex and Gender Information Value Date Recorded Sex Assigned at Not on file Legal Sex Male 5:08 PM CDT Gender Identity Not on file Sexual Orientation Not on file documented as of this encounter Miscellaneous Notes * Cerner Conversion Note - Historical ProviderMD - 06/11/2020 10:30 AM CLEANING TEAM MEMBER Pre Procedure Adult Entered On: 06/11/2020 10:38 EST Performed On: 06/11/2020 10:30 EST by JACI SPARKS RN Height and Weight, Clinical Dosing Height Source : Stated Height Entry Format : Weir Height, Feet : 6 ft(Converted to: 183 cm, 72 Inch) Height, Inches : 0 Inch(Converted to: 0 ft 0 Inch, 0.00 cm) Clinical Height : 182.88 cm Weight Source : Standing scale Weight Entry Format : Weir Clinical Dosing Weight : 127.27 kg Weight, Pounds : 280 lb Body Surface Area (BSA) : 2.46 m2 Body Mass Index : 38.1 kg/m2 (HI) [place] Body Weight : 77 kg JACI SPARKS RN - 06/11/2020 10:30 EST Health Histories Smoking Status : Never (less than 100 in lifetime; none in last 30 days) Smokeless Tobacco Status : Never JACI SPARKS RN - 06/11/2020 10:30 EST Social History (As Of: 06/11/2020 10:38:08 EST) Tobacco: Use in Last 12 Months: No. Smoking Status Never smoker. (Last Updated: 05/22/2014 07:40:13 EST by BHARTI RAMIREZ RN) Alcohol: Alcohol Use History Yes. Alcohol Use Frequency Rarely. (Last Updated: 06/11/2020 10:30:52 EST by JACI SPARKS RN) Substance Abuse: Drug Use Hx: No. (Last Updated: 06/11/2020 10:30:56 EST by JACI SPARKS RN) Infectious Disease History Has the patient ever been tested for COVID-19? : Yes, Patient stated results Negative Where are the test results? : Paper Copy on chart Date of COVID-19 test known? : Yes Date of COVID-19 Test : 06/09/2020 EST Does patient have symptoms of COVID-19? : No COVID19 Screening : No Experiencing Infectious Disease Symptoms : No symptoms Physical contact outside [place] in the last 30 days : No Infectious Disease History : None Tuberculosis Symptoms : None JACI SPARKS RN - 06/11/2020 10:30 EST COVID19 PreProcedure Screening Is this an Emergent or Add on Procedure? : No Date PreProcedure COVID-19 test known? : Yes Date of PreProcedure COVID-19 : 06/09/2020 EST Has patient been isolated since the test : Yes Exposed to COVID19 symptoms since test? : No JACI SPARKS RN - 06/11/2020 10:30 EST Anesthesia/Transfusion History Family History of Anesthesia Reaction : Prior transfusion without reaction Blood Transfusion Acceptable to Patient : Yes Transfusion History : Prior anesthesia without reaction Family History of Anesthesia Reaction : None JACI SPARKS RN - 06/11/2020 10:30 EST Functional Assessment Living Situation : Home Patient Lives With : Spouse Persons Assisting Patient at Home : Spouse Current Daily Living Assistance : None Sensory Deficits : Hearing deficit, right ear, Hearing deficit, left ear Mobility Assistance Prior to Admission : Independent Current Home Treatments : None JACI SPARKS RN - 06/11/2020 10:30 EST [place] Suicide Severity Rating Scale (C-SSRS) CSSRS Past Month Wish to be : No CSSRS Past Month Suicidal Thoughts : No CSSRS Lifetime Suicide Behavior : No Suicide Severity Rating Score : 0 Suicide Severity Rating : No Additional Care Required at this time JACI SPARKS RN - 06/11/2020 10:30 EST Psychosocial History Does Someone Depend on You for Care? : No Do You Have a History of the Following? : Patient denies history Currently in Unsafe Situation : JACI Maldonado RN - 06/11/2020 10:30 EST Advance Directive Patient has Advance Directive *Q : Yes, Advance Directive not with the patient Advance Directive Type : Living will Copy Advance Directive Verified/on Chart : JACI Maldonado RN - 06/11/2020 10:30 EST Teaching/Learning Assessment Barriers To Learning : Hearing deficit Individuals Taught : Patient Learning Style Preferences Patient : Verbal explanation JACI SPARKS RN - 06/11/2020 10:30 EST Education Topics, Periop Preadmission Perioperative Education Grid IV's : Verbalizes understanding NPO Status/Directions : Verbalizes understanding Responsible Adult : Verbalizes understanding JACI SPARKS RN - 06/11/2020 10:30 EST General Info Arrived From : Home Mode of Arrival on Unit : Ambulatory Legal Guardian : Spouse Want Family/Rep/Phys Notified of Admit : No Emergency Contact #1 : Rosi Emergency Contact #1 Emergency Contact #1 Relationship : spouse Emergency Contact #2 : none Emergency Contact #2 Phone Number : none Emergency Contact #2 Relationship : none Chief Complaint : Here for cardiac cath Information Obtained From : Patient Primary Language : Persian Communication Barrier : None Manager Integrity Needed : JACI Maldonado RN - 06/11/2020 10:30 EST Vital Measurements Temperature Source : Temporal artery scanning Temperature Mode : Fahrenheit Temperature, Fahrenheit : 97.1 Deg F Clinical Temperature, C : 36.2 Deg C Pulse Method : Non-Invasive BP Device Peripheral Pulse Rate : 79 bpm Respiratory Rate : 16 Breaths/Min Blood Pressure Location : Arm, right upper Blood Pressure Source : Non-Invasive BP Device Systolic Blood Pressure : 160 mmHg (HI) Diastolic Blood Pressure : 87 mmHg Oxygen Saturation : 98 % Oxygen Therapy Mode : Room air JACI SPARKS RN - 06/11/2020 10:30 EST Sleep Apnea Risk Assmt Hx of Obstructive Sleep Apnea Diagnosis : No Snore Loudly : Yes Tired, Fatigued, or Sleepy During Day : Yes Observed Stopping Breathing During Sleep : No Have/Are Being Treated for Hypertension : No BMI Greater Than 35 kg/m2 : Yes Age over 50 Years Old : Yes Neck Circumference Greater Than 40 cm : Yes Gender Male : Yes STOP-BANG Sleep Apnea Risk Level Score : 6 JACI SPARKS RN - 06/11/2020 10:30 EST Raghavendra Scale Raghavendra Sensory Perception : Slightly limited Raghavendra Moisture : Rarely moist Raghavendra Activity : Walks occasionally Raghavendra Mobility : Slightly limited Raghavendra Nutrition : Adequate Raghavendra Friction and Shear : Potential problem Raghavendra Score : 18 JACI SPARKS RN - 06/11/2020 10:30 EST Oxygen Therapy Oxygen Therapy Mode : Room air JACI SPARKS RN - 06/11/2020 10:30 EST Pain Assessment Pain Assessment : Initial assessment Pain Scale Used : 0-10 Scale JACI SPARKS RN - 06/11/2020 10:30 EST Fall Risk Scales ABCs Fall Injury Risk Identification : None HALE Hx Falls Immediate/Within 3 Months : No Hale Secondary Diagnosis : No HALE Use of Ambulatory Aid : None HALE IV Therapy or IV Access : Yes Gio Gait/Transferring : Normal, bedrest, immobile Hale Mental Status : Oriented to own ability Hale Fall Risk Score : 20 HALE Fall Scale Risk Level : 0-24 Low Risk Ribera Fall Interventions : Adequate lighting, Bed in low position, Hourly comfort/safety rounds, Non-slip footwear, Personal items within reach, Room free of clutter/spills, Upper side-rails up, Wheels locked, Wires/Cords secured JACI SPARKS RN - 06/11/2020 10:30 EST Valuables and Belongings Valuables and Belongings : Clothing, Personal items, Medications, No personal items, No assistive devices, No respiratory devices Clothing : Common streetwear Clothing Disposition : Bedside Personal Items : Humphrey, Cell phone, Wallet Personal Items Disposition : Bedside, Declines to send to security/safe Medication Disposition : With patient Medication Brought With Patient : Yes JACI SPARKS RN - 06/11/2020 10:30 EST Pain Scale Intensity : 0 JACI SPARKS RN - 06/11/2020 10:30 EST Image 4 - Images currently included in the form version of this document have not been included in the text rendition version of the form. Fox Coma Fox Best Motor Response : Obey commands [place] Best Verbal Response : Oriented [place] Eye Opening Response : Spontaneous [place] Coma Score : 15 JACI SPARKS RN - 06/11/2020 10:30 EST Electronically signed by Daniel [facility] Conversion Automatic Pattern Edger Cerner at 09/22/2022 1:51 PM CDT documented in this encounter Plan of Treatment Not on file documented as of this encounter Visit Diagnoses Not on filedocumented in this encounter
--- NOTE | 2024-11-27 12:12 | ECG_ITS ---
APPROVED REPORT Exam: Resting ECG HR:61 bpm ECG Measurements Heart Rate 61 AXES OR 253 P 58 QRSd 130 QRS -69 QT 431 T 38 QTc 434 Conclusion ELECTRONIC VENTRICULAR PACEMAKER ABNORMAL RHYTHM ECG UNCONFIRMED REPORT Electronically signed by : Rl Galvan MD 11/30/2024 07:52:22
[2024-11-27 12:24] LABS: Microscopic, Urine URINE MICROSCOPIC (MICROSCOPIC)
[2024-11-27 12:26] LABS: Basophils % 0.3 % (0.1-2.0); Eosinophils # 0.1 Kmm3 (0.0-0.4); Eosinophils % 1.5 % (0.1-12.0); Hematocrit 41.8 % (42.0-52.0); Hemoglobin 13.8 g/dL (14.1-18.0); Immature Granulocytes # 0.02 10^3uL; Immature Granulocytes % 0.3 %; Lymphocytes # 1.7 K/mm3 (0.7-4.5); Lymphocytes % 23.7 % (10-50); Mean Corpuscular Hemoglobin 30.8 pg (27.0-31.2); Mean Corpuscular Volume 93.3 fl (80-94); Mean Platelet Volume 11.9 fl (7.4-10.4); Monocytes # 0.7 K/mm3 (0.1-1.0); Monocytes % 10.1 % (1.7-9.3); Neutrophils # 4.6 K/mm3 (1.8-7.8); Neutrophils % 64.1 % (37.0-80.0); Nucleated Red Blood Cells # 0 10^3/uL; Nucleated Red Blood Cells % 0 %; Platelet Count 189 K/mm3 (142-424); Red Blood Count 4.48 M/mm3 (4.60-6.20); Red Cell Distribution Width 12.7 % (11.5-17.5); White Blood Count 7.2 K/mm3 (4.8-10.8)
[2024-11-27 12:28] LABS: Appearance,Urine CLEAR (Clear); Bilirubin,Urine Negative (Negative); Blood, Urine Negative (Negative); Color,Urine YELLOW (Yellow); Glucose,Urine (UA) Negative (Negative); Ketones,Urine Negative (Negative); Leukocyte Esterase,Urine Negative (Negative); Nitrate,Urine Negative (Negative); Protein,Urine Negative (Negative); Urobilinogen,Urine 0.2 EU/dl (0.2)
[2024-11-27 12:37] LABS: Chloride 100 mmol/L (98-107); Sodium 137 mmol/L (136-145); Squamous Epithelial Cell,Urine Occasional #/hpf (0-5)
[2024-11-27 12:38] LABS: Potassium 4.4 mmoL/L (3.5-5.1)
[2024-11-27 12:40] LABS: Blood Urea Nitrogen 18 mg/dl (9-20); Estimated Glomerular Filt Rate 92 ml/min (>60); GFR (African American) 111 ML/MIN (>60)
[2024-11-27 12:41] LABS: Anion Gap 13.4 mEq/L (5-15); Calcium 8.9 mg/dl (8.4-10.2); Carbon Dioxide 28 mmol/L (22.0-30.0); Glucose 127 mg/dl (74-100)
== END 2024-11-27 23:59 | disposition home or self-care (01) ==
LOC: PREOP 11:06
PROVIDERS: PCP Family Medicine; Visit Provider Surgery
DX: Z01.810 Encounter for preprocedural cardiovascular examination (principal); Z01.812 Encounter for preprocedural laboratory examination; I49.9 Cardiac arrhythmia, unspecified; R94.31 Abnormal electrocardiogram [ECG] [EKG]; K40.90 Unilateral inguinal hernia, without obstruction or gangrene, not specified as recurrent; Z95.0 Presence of cardiac pacemaker
CPT/HCPCS: 80048; 81001; 85025; 93005

== ENCOUNTER 2024-12-02 07:49 | Day surgery (SDC) | payer MEDICARE, BC, SELFPAY ==
[2024-11-27 14:03] VITALS: BMI 38.0
[2024-12-02] VITALS (13 sets, daily range): BP systolic 118–147; BP diastolic 58–90; PULSE 60–77; RESP 14–18; TEMP 36.1–36.7; O2SAT 92–99
--- NOTE | 2024-12-02 09:00 | P.PNANES_ITS ---
[facility] Disclaimer: The information contained in this section may have been updated after the patient was seen, as this information can be updated by other users. Medical History Diabetes Heart disease FH: cholecystectomy Inguinal hernia Kidney stones Shortness of breath Surgical History History of cholecystectomy History of surgery H/O hernia repair S/P placement of cardiac pacemaker Family History Father , 98 y/o Cancer stomach Diabetes Mother , 92 y/o Heart disease Social History Smoking Status: Never smoker alcohol intake: never substance use type: denies use current occupational status: retired Travel in the last 8 weeks?: Inside the [facility] household members: spouse housing: house lives independently: Yes marital status: Have you lived/traveled outside US in past 30 days?: No Contact w/someone who lives/traveled outside US past 30 days?: No Exposure to someone with infectious disease in past 14 days?: No Do you have a fever (greater than 100.4 F or 38 C)?: No Have you tested positive for COVID-19?: No Exposed to someone with COVID-19 in past 14 days?: No Do you have a sore throat?: No Do you have a cough?: No Do you have any weakness?: No Do you have any diarrhea?: No Are you experiencing any unusual bleeding?: No Do you have any muscle aches/pain?: No Do you have any abdominal pain?: No Are you experiencing loss of taste or smell?: No [facility] Anesthesia Checklist Patient Identification Patient Identification: Arm Band Structural Data Admitted From: Home Planned Operative Procedure/s: Open Right Inguinal Hernia Repair Consent for Planned Operative Procedure(s) Verified: Yes Verified Documents: Surgical Consent, History and Physical and Cardiac Clearance NPO Status Verified Time NPO: 00:00 Additional verifications Anesthesia Reactions: No Airway Assessment Mallampati Score:: Class II C-Spine Mobility Assessed: Yes TMJ Mobility Assessed: Yes Dentition: Good Dentition Neurological Assessment Level of Consciousness: Awake, Alert and Appropriate Anesthesia Plan Anesthesia Risk discussed: Yes Anesthesia Plan: Verified ASA Class: III Anesthesia Type: General
[2024-12-02] MEDS: LACTATED RINGERS 1000ML 1,000 ML 25 ML IV (09:06)
[2024-12-02] MEDS: CEFAZOLIN SODIUM 2 GM in 0.9 % SODIUM CHLORIDE 100 ML IV (09:24)
[2024-12-02] MEDS: ROPIVACAINE 0.5% 30ML VIAL 150 MG (09:43)
[2024-12-02] MEDS: LIDOCAINE 1% 20ML MDV 20 ML (09:43)
--- NOTE | 2024-12-02 11:06 | EXP.OP.NOTE ---
Date of procedure: 12/02/24 Pre-op Diagnosis:: Right inguinal hernia Post-op Diagnosis:: Same Procedure performed:: Open repair of right inguinal hernia with placement of extra-large Bard PerFix mesh plug with onlay mesh Surgeon:: Jose Hayden MD PRODUCT SAFETY AND STANDARDS ENGINEER:: Arden Bell Anesthesia: GETA Estimated blood loss (mL): 10 Clinical Note:: Patient presents for open right inguinal hernia repair. He is a 84-year-old male with diabetes, congestive heart failure, history of pacemaker placement, prior history of hernia repair. He has had some lower abdominal and testicular pain. He had an outside CT scan performed through [facility] emergency department which revealed no evidence of any acute findings. He was seen in the emergency department on 10/15/2024 with lower abdominal pain going on for about a month which was much worse. He also described testicular swelling. He was sent for immediate outpatient surgical evaluation and seen in the office immediately after he was seen in the emergency department on 10/15/2024. CT scan at that time revealed fat-containing right inguinal hernia. He did follow-up with gastroenterology and had a colonoscopy. He presented back to the emergency department on 10/31/2024. At that time he describes symptoms of abdominal distention with associated shortness of breath. He underwent another CT scan at that time. There were some stable findings of the lower pelvic anterior abdominal wall from his previous suprapubic surgery for kidney stone. Moderate-sized fat containing right inguinal hernia. Patient has also seen urology. He has complaints of low mid back pain. Patient does have a moderate somewhat symptomatic right inguinal hernia. Unclear if this is the etiology of all of his symptoms. Doubtful that this is the etiology of his back pain. Patient would like to pursue repair. This may be somewhat of an undertaking. Patient did undergo cardiology risk stratification. I explained to him the nature and details of the proposed procedure along with associated risks and expected outcome. He understood and agrees to proceed. Operative findings:: He had a very large indirect hernia with herniated fatty tissues adherent to the cord. Tissues were extremely attenuated and somewhat friable. Operative note:: Consent was obtained patient was taken the operating room. He was positioned in supine position. General anesthesia was induced. Lower abdomen and perineal area were prepped and draped in the standard surgical fashion. He was positioned in Trendelenburg position. Palpation of landmarks was difficult due to the patient's body habitus. Oblique incision was made in the right inguinal area above landmarks identifying the inguinal ligament. Section was carried down through subcutaneous tissues and Milena's fascia using electrocautery. External oblique muscle was cleaned free. It was friable. It was opened from the external ring towards the internal ring. Underlying ilioinguinal nerve was identified and preserved. Dissection was carried out of the cord structures. Tissues of the cord including herniated fatty tissue was elevated. Cord structures were encircled with a Kenneth drain. Large amount of preperitoneal fatty tissues and potentially omentum which was herniated was dissected free from the cord down to the internal ring. It was reduced. There was a large defect as an indirect hernia with muscle defect lateral to the cord structures. An extra-large Bard PerFix mesh plug it was sewn in position securing it to the shelving edge of the inguinal ligament and to transversalis muscle with interrupted 2-0 PDS sutures. The onlay mesh was then sewn in position securing it to Andrea's ligament and along the shelving edge of the inguinal ligament with a running 2-0 PDS. It was secured superiorly medially to the transversalis muscle fascia with interrupted 2-0 PDS horizontal mattress sutures. The 2 tails of the mesh were sewn to 1 another around the internal ring to reconstruct the internal ring with interrupted 2-0 PDS. Cord structures were returned to the normal anatomic position. Repair appeared adequate. Local anesthetic was infiltrated regionally. External oblique muscle was closed over the cord structures and ilioinguinal nerves with running 2-0 Vicryl. Milena's fascia was closed with running 2-0 Vicryl. Skin was closed with 4-0 Monocryl in a running subcuticular fashion. Steri-Strips and clean dry sterile dressing was applied. Condition: stable Disposition: PACU Complications:: None immediately apparent
--- NOTE | 2024-12-02 11:24 | P.PNANES_ITS ---
[facility] Anesthesia Record Part I Anesthesia Record I Intake, IV Amount: 600 Hydration: Adequate Estimated blood loss (mL): 30 Urine output (mL): 300 Blood Products used (#): none Blood Pressure: 134/77 SaO2: 92 Pulse Rate: 77 Airway Patency: Patent Respiratory Rate: 14 Temperature: 98.1 F Patient is:: Drowsy and Stable Stable to PACU at:: 11:15
[2024-12-02 11:32] LABS: POC Glucose,Bedside 131 (70-110)
[2024-12-02] MEDS: HYDROMORPHONE 2MG/ML SYRINGE 0.5 MG IV ×4 (11:35→11:50)
[2024-12-02] MEDS: MORPHINE 2MG/ML SYRINGE 1 MG IV ×4 (11:53→12:08)
[2024-12-02 13:41] LABS: Microscopic,Cath URINE MICROSCOPIC (MICROSCOPIC)
[2024-12-02 13:45] LABS: Appearance,Urine/Cath CLEAR (Clear); Bilirubin,Cath Negative (Negative); Blood, Urine/Cath Negative (Negative); Color,Urine/Cath YELLOW (Yellow); Glucose,Urine/Cath (UA) Negative (Negative); Ketones,Urine/Cath Negative (Negative); Leukocyte Esterase,Cath Negative (Negative); Nitrate,Cath Negative (Negative); PH,Urine/Cath 6.5 (5.0-8.5); Protein,Urine/Cath Negative (Negative)
[2024-12-02 14:00] LABS: Bacteria,Urine/Cath TRACE /lpf; WBC,Urine/Cath Occasional #/hpf (0-3)
--- NOTE | 2024-12-02 16:01 | EXP.ANES.II ---
[facility] Anesthesia Record Part II Anesthesia Record Part II Discharge Time: 12:55 Destination: Surgical Day Care (OP Surgery) PACU nurse assessment reviewed?: Yes Patient Condition:: Good Anesthesia Complications:: None Swallowing reflex intact?: Yes Airway Patency: Patent Cyanosis?: No Blood Pressure: 133/58 SaO2: 96 Respiratory Rate: 18 Pulse Rate: 66 Temperature: 97.0 F Mental Status: Alert & Oriented Pain level:: 6 Nausea and/or vomitting:: None Intake, IV Amount: 0 Hydration: Adequate
[2024-12-03 08:22] LABS: POC Glucose,Bedside 130 (70-110)
== END 2024-12-02 12:46 | disposition home or self-care (01) ==
PROVIDERS: PCP Family Medicine; Visit Provider Surgery
PROC: (CPT 49520; principal; 2024-12-02 09:45)
DX: K40.91 Unilateral inguinal hernia, without obstruction or gangrene, recurrent (principal); E11.9 Type 2 diabetes mellitus without complications; I50.9 Heart failure, unspecified; Z95.0 Presence of cardiac pacemaker; Z87.19 Personal history of other diseases of the digestive system; Z79.899 Other long term (current) drug therapy; Z79.01 Long term (current) use of anticoagulants; Z79.84 Long term (current) use of oral hypoglycemic drugs; Z90.49 Acquired absence of other specified parts of digestive tract
CPT/HCPCS: 49520; 51702; 81001; 82962; 96374; C1781; J0690; J1100; J1171; J2003; J2270; J2405; J2704; J2795; J3010; J7120

== ENCOUNTER 2024-12-27 15:02 | Emergency (ER) | payer MEDICARE, BC, SELFPAY ==
--- OUTSIDE RECORDS SUMMARY | 2024-12-27 15:12 | XMS_ITS | Encounter Summary ---
Author Organization [employer] ([place], [place], [place], [place]) Address [address] [place] [address] Care Team Providers Care Housing Assistant Name Role Phone Unavailable Primary Care Provider Unavailabl e Encounter Details Date Type Department Care Team (Late st Contact Info) Description 06/11/2020 Transcribed Document [facility] [place] Family Medicine [address] [place] [address] ProviderRey MD [address] [place] [address] Social History Tobacco Use Types Packs/Day Years Used Date Smoking Tobacco: Never Assessed Sex and Gender Information Value Date Recorded Sex Assigned at Not on file Legal Sex Male 5:08 PM CDT Gender Identity Not on file Sexual Orientation Not on file documented as of this encounter Miscellaneous Notes * Cerner Conversion Note - Rey ProviderMD - 06/11/2020 3:59 PM PRIMER SUPERVISOR [facility] [place] [address] ANGI RUBIO :1940 Visit Time:06/11/2020 Your [...] problems Where: [address] [place] [address] [place] [address]- Business (1) Medications What How [...] you are awake and alert. ??? Take lpwl-sgp-uteovvs and prescription medicines only as told by [...] Reviewed: 09/10/2016 Elsevier Patient Education ?? 2020 [employer] Radial Fracture A radial fracture is [...] This may take several hours. ??? Take aldh-kvd-dbaxavj and prescription medicines only as told by [...] 11/02/2006 Document Revised: 05/16/2018 Document Reviewed: 05/16/2018 [employer] Patient Education ?? 2020 [employer] Angiogram, Care After This sheet gives [...] and water are not available, use hand computer laboratory technician. ? Change your dressing as told by [...] contrast dye from your body. ??? Take dyti-xaa-qttwjnt and prescription medicines only as told by [...] 12/08/2005 Document Revised: 05/04/2018 Document Reviewed: 04/26/2017 [employer] Patient Education ?? 2019 [employer]. sacubitril and valsartan (sak UE bi tril [...] or ?? if you are on a tyt-bvoh-bksj. Do not use if you are , [...] have an allergic reaction if you are -[place]. Also call your doctor at once if [...] may report side effects to FDA at 0-083-LXY-5495. What other drugs will affect sacubitril and [...] affect sacubitril and valsartan, including prescription and tgad-zab-xnaptxf medicines, vitamins, and herbal products. Not all [...] to ensure that the information provided by [employer]. ('[employer]') is accurate, up-to-date, and complete, but no guarantee is made to that effect. Drug information contained herein may be time sensitive. [employer] information has been compiled for use by healthcare practitioners and consumers in the [place] and therefore [employer] does not warrant that uses outside of the [place] are appropriate, unless specifically indicated otherwise. [employer] drug information does not endorse drugs, diagnose patients or recommend therapy. [employer] drug information is an informational resource designed [...] effective or appropriate for any given patient. [employer] does not assume any responsibility for any aspect of healthcare administered with the aid of information [employer] provides. The information contained herein is not intended to cover all possible uses, directions, precautions, warnings, drug interactions, allergic reactions, or adverse effects. If you have questions about the drugs you are taking, check with your doctor, nurse or pharmacist. Copyright 7280-7007 [employer]. Version: 4.01. Revision Date: 04/24/2019. Emergency [...] Assistance with quitting is available by contacting 9-628-SXTA-NOW. This is a free resource providing counseling, [...] was given the opportunity to ask questions. Patient/Restaurant Expeditor Name: Patient/Restaurant Expeditor Signature: Relationship to Patient: Clinician/Hospital Restaurant Expeditor Signature: Date: documented in this encounter Plan of Treatment Not on file documented as of this encounter Visit Diagnoses Not on filedocumented in this encounter
--- OUTSIDE RECORDS SUMMARY | 2024-12-27 15:12 | XMS_ITS | Encounter Summary ---
Author Organization [facility] Address [address] [place] [address] Care Team Providers Care Nuclear Powerplant Mechanic Helper Name Role Phone Paul Be MD Primary Care Provider [phone] Reason for Visit * Reason Onset Date Comments DR. GARCIA- CARDIAC CLEARANCE 11/01/2024 Encounter Details Date Type Department Care Team (Late st Contact Info) Description 11/01/2024 Telephone [facility] [address] [place] [id number] Orin Garcia MD [address] [place] [address] DR. GARCIA- CARDIAC CLEARANCE Social History Tobacco Use Types Packs/Day Years Used Date Smoking Tobacco: Never Passive Smoke Exposure: Never Smokeless Tobacco: Never Alcohol Use Standard Drinks/Week Comments No 0 (1 standard drink = 0.6 oz pur e alcohol) AUDIT-C Answer Date Recorded Q1: How often do you have a drink containing alcohol? Never 07/31/2023 Q2: How many drinks containi ng alcohol do you have on a typical day when you are drinking? Patient does not drink Q3: How often do you have si x or more drinks on one occasion? Never 07/31/2023 Abuse Screen Answer Date Recorded Feels Unsafe at Home or Work/School no 07/31/2023 Feels Threatened by Someone no 07/07 Does Anyone Try to Keep You From Having Contact with Others or Doing Things Outside Your Home? no 07/31/2023 Physical Signs of Abuse Present no 07/31/2023 Housing Stability Answer Date Recorded Current Living Arrangements home 07/07 Potentially Unsafe Housing Conditions Not on chelly e 07/31/2023 Disabilities Answer Date Recorded Difficulty Concentrating, Remembering or Making Decisions no 07/31/2023 Difficulty Managing Errands Independently no 07/31/2023 Sex and Gender Information Value Date Recorded Sex Assigned at Not on file Legal Sex Male 9:50 AM EST Gender Identity Not on file Sexual Orientation Not on file documented as of this encounter Miscellaneous Notes * Telephone Encounter - Jazmine Escamilla MA - 11/01/2024 11:18 AM EDT notified. Clearance sent to Dr. Manzano' office on 10/17/24. * Telephone Encounter - Kayla Mayo RegSched Rep - 11/01/2024 11:11 AM EDT Caller: DAILY RUBIO Relationship: Emergency Contact Best call back number: [phone] What is the best time to reach you: ANY Who are you requesting to speak with (clinical staff, provider, specific staff member): CLINICAL Do you know the name of the person who called: N/A What was the call regarding: PATIENTS IS CHECKING ON STATUS OF CARDIAC CLEARANCE THAT CAME FROM DR. MANZANO OFFICE. FOR PATIENT TO HAVE COLONOSCOPY ON 11-06-24 IN [facility]. Is it okay if the provider responds through MyChart: CALL documented in this encounter Plan of Treatment Upcoming Encounters Date Type Department Care Team (Late st Contact Info) Description 02/17/2025 11:00 AM EDT Office Visit [facility] [address] [id number] Orin Garcia MD [address] [place] [address] 02/17/2025 11:00 AM EDT Clinical Support No Requirements [facility] [address] [address] documented as of this encounter Visit Diagnoses Not on filedocumented in this encounter Care Teams Nuclear Powerplant Mechanic Helper Relationship Specialty Start Date End Date Paul Be MD [address] [place] [address] PCP - General Family Medicine 05/01/19 documented as of this encounter
--- OUTSIDE RECORDS SUMMARY | 2024-12-27 15:12 | XMS_ITS | Encounter Summary ---
Author Organization [facility] Address [address] [place] [address] Care Team Providers Care Car Salesperson Name Role Phone Paul Be MD Primary Care Provider [phone] Encounter Details Date Type Department Care Team (Late st Contact Info) Description 11/18/[address] [facility] CARDIOLOG[facility] [address] [place] [address] Shira Petersen RegSched Rep Social History Tobacco Use Types Packs/Day Years [...] encounter Miscellaneous Notes * Telephone Encounter - Shira Petersen RegSched Rep - 11/18/2024 1:15 PM EDT LVM for BJ at Dr. Hayden's office. Pt ok to stop Eliquis for 2 days prior to procedure. * Telephone Encounter - Shira Petersen RegSched Rep - 11/18/2024 12:56 PM EDT BJ for Dr. Hayden's office called about the preop clearance that was faxed. She is questioning the statement that is marked that Patient may NOT stop Eliquis for 2 days . Also the date of the heart cath was 01/17/2023 not 01/17/25. Please clarify Eliquis. Fax to BJ @ [phone]. documented in this encounter Plan of Treatment Upcoming Encounters Date Type Department Care Team (Late st Contact Info) Description 02/17/2025 11:00 AM EDT Office Visit [facility] [address] [id number] Orin Garcia MD [address] [place] [address] 02/17/2025 11:00 AM EDT Clinical Support No Requirements [facility] [address] [address] documented as of this encounter Visit Diagnoses Not on filedocumented in this encounter Care Teams Car Salesperson Relationship Specialty Start Date End Date Paul Be MD [address] [facility] [address] [place] [address] PCP - General Family Medicine 11/27/19 documented as of this encounter
--- OUTSIDE RECORDS SUMMARY | 2024-12-27 15:12 | XMS_ITS | Encounter Summary ---
Author Organization [facility] Address [address] [place] [address] Care Team Providers Care Clutch Assembler Name Role Phone Paul Be MD Primary Care Provider [phone] Reason for Visit * Reason Onset Date Comments RUFINA COSTA- [place] 11/19/2024 Encounter Details Date Type Department Care Team (Late st Contact Info) Description 11/19/2024 Telephone [facility] [address] [address] Rufina Costa MANAGER MOBILITY [address] [place] [address] RUFINA COSTA- [place]IGH Social History Tobacco Use Types Packs/Day Years [...] Telephone Encounter - Jazmine Escamilla MA - 11/19/2024 4:31 PM EDT Clearance sent. * Telephone Encounter - Vignesh Watson RegSched Rep - 11/19/2024 4:17 PM EDT Caller: [facility] Relationship: Other Best call back number: [phone] What is the best time to reach you: 8 and 4:30 Who are you requesting to speak with (clinical staff, provider, specific staff member): CLINICAL What was the call regarding: THEY NEED CLEARANCE FAXED OVER PLEASE FAX TO [phone] PLEASE FAX OVER ELIQUIS ORDER documented in this encounter Plan of Treatment Upcoming Encounters Date Type Department Care Team (Late st Contact Info) Description 02/17/2025 11:00 AM EDT Office Visit [facility] [address] [address] Orin Garcia MD [address] [place] [address] 02/17/2025 11:00 AM EDT Clinical Support No Requirements [facility] [address] [place] [address] documented as of this encounter Visit Diagnoses Not on filedocumented in this encounter Care Teams Clutch Assembler Relationship Specialty Start Date End Date Paul Be MD [address] [place] [address] PCP - General Family Medicine 05/01/19 documented as of this encounter
--- OUTSIDE RECORDS SUMMARY | 2024-12-27 15:12 | XMS_ITS | Encounter Summary ---
Author Organization [facility] ([place], [place]) Address [address] [place] [address] Care Team Providers Care Home Worker Name Role Phone Unavailable Primary Care Provider Unavailabl e Encounter Details Date Type Department Care Team (Late st Contact Info) Description 06/11/2020 Transcribed Document [facility] Family Medicine [facility] [place] [address] ProviderRey MD [address] [place] [address] Social History Tobacco Use Types Packs/Day Years Used Date Smoking Tobacco: Never Assessed Sex and Gender Information Value Date Recorded Sex Assigned at Not on file Legal Sex Male 5:08 PM CDT Gender Identity Not on file Sexual Orientation Not on file documented as of this encounter Miscellaneous Notes * Cerner Conversion Note - Rey ProviderMD - 06/11/2020 1:19 PM MAINTENANCE REPRESENTATIVE DATE OF SERVICE: LEFT HEART CATHETERIZATION REPORT. INDICATION: New diagnosis of cardiomyopathy, dyspnea, and lateral/apical ischemia by Lexiscan Myoview perfusion study. ADDITIONAL REFERRING PHYSICIAN: Dr. Jay Be PROCEDURE: Standard left heart catheterization. TECHNIQUE: A 5/6-Pashto sheath was placed in the right radial artery. 5 mg of verapamil, 50 units/kg of heparin were administered via the radial artery sheath. John catheter was used for selective angiography of left and right coronary arteries and advanced into the left ventricle for left ventricle pressure assessment. The John catheter was switched out for 6-Pashto pigtail catheter. Left ventriculogram was performed using [...] Optimization of heart failure medication is recommended. /[id number] Mina Tan MD SSL/AQ / SSL / MODL /[id number] CC: Dr. Jay Willis MD Electronically signed by Daniel [facility] Conversion Evaporative Cooler Installer Cerner at 09/22/2022 1:55 PM CDT documented in this encounter Plan of Treatment Not on file documented as of this encounter Visit Diagnoses Not on filedocumented in this encounter
--- OUTSIDE RECORDS SUMMARY | 2024-12-27 15:12 | XMS_ITS | Encounter Summary ---
Author Organization [facility] Address [address] [place] [address] Care Team Providers Care Elementary School Music Teacher Name Role Phone Paul Be MD Primary Care Provider [phone] Encounter Details Date Type Department Care Team (Late st Contact Info) Description 12/26/2024 Refill [facility]IOLOG[facility] [address] [phone] Kim Love, SLAB STRIPPER [address] [place] [address] Social History Tobacco Use Types Packs/Day Years [...] on file documented as of this encounter Progress Notes * Jose Garcia MD - 12/26/2024 1:15 PM EDTAddended by: JOSE GARCIA HUANG on: 12/26/2024 01:15 PM Modules accepted: Orders * Becky Ivy MA - 12/26/2024 11:16 AM EDTAddended by: BECKY IVY on: 12/26/2024 11:16 AM Modules accepted: Orders documented in this encounter Miscellaneous Notes * Telephone Encounter - Jose Garcia MD - 12/26/2024 1:14 PM EDT Sent as he is taking at home. * Telephone Encounter - Becky Ivy MA - 12/26/2024 11:09 AM EDT Spoke to she states patient takes Lasix 40mg 1 tablet in am and 1 tablet in evening and is needing a refill. Last filled was just 1 40mg tablet once a day as needed for swelling. Please advise. * Telephone Encounter - Murphy Perez RegSched Rep - 12/26/2024 10:59 AM EDT Pt Daily called LVM requesting a refill on Lasix 40mg. documented in this encounter Plan of Treatment Upcoming Encounters Date Type Department Care Team (Late st Contact Info) Description 02/17/2025 11:00 AM EDT Office Visit [facility] [address] [phone] Jose Garcia MD [address] [place] [address] 02/17/2025 11:00 AM EDT Clinical Support No Requirements [facility] [address] [address] documented as of this encounter Visit Diagnoses Diagnosis Chronic systolic (congestive) heart failure documented in this encounter Care Teams Elementary School Music Teacher Relationship Specialty Start Date End Date Paul Be MD [address] [place] [address] PCP - General Family Medicine 05/01/19 documented as of this encounter
--- OUTSIDE RECORDS SUMMARY | 2024-12-27 15:12 | XMS_ITS | Encounter Summary ---
Author Organization [facility] Address [address] [place] [address] Care Team Providers Care Manager Planning Name Role Phone Paul Be MD Primary Care Provider [phone] Encounter Details Date Type Department Care Team (Late st Contact Info) Description 11/04/2024 Telephone [facility]IOLOG[facility] [address] [place] [address] Kim Love, AIR TUBE RELEASER [address] [place] [id number] Social History Tobacco Use Types Packs/Day Years [...] encounter Miscellaneous Notes * Telephone Encounter - Marika Ivy MA - 11/04/2024 1:11 PM EDT LABS IN PATIENT'S CHART * Telephone Encounter - Christopher Cruz CMA - 11/04/2024 10:39 AM EDT REQUESTED LABS FROM PCP * Telephone Encounter - Christopher Cruz CMA - 11/04/2024 10:39 AM EDT ----- Message from Kim Love sent at 11/04/2024 9:07 AM EDT ----- Regarding: labs Patient needed Lasix and potassium refill. I send in but he did not have any recent labs. Can we check with the patient and see if done? IF NOT, let me know and I will order his labs for him to do: CMP and lipids for our office. Might want to see if Dr. Be wants to do his annual labs and get them drawn at Dr. Be office to prevent to Lab draws. documented in this encounter Plan of Treatment Upcoming Encounters Date Type Department Care Team (Late st Contact Info) Description 02/17/2025 11:00 AM EDT Office Visit [facility] [address] [address] Orin Garcia MD [address] [place] [address] 02/17/2025 11:00 AM EDT Clinical Support No Requirements [facility] [address] [place] [address] documented as of this encounter Visit Diagnoses Not on filedocumented in this encounter Care Teams Manager Planning Relationship Specialty Start Date End Date Paul Be MD [address] [place] [address] PCP - General Family Medicine 05/01/19 documented as of this encounter
--- OUTSIDE RECORDS SUMMARY | 2024-12-27 15:12 | XMS_ITS | Encounter Summary ---
Author Organization [facility] Address [address] [place] [address] Care Team Providers Care Internal Communications Manager Name Role Phone Paul Be MD Primary Care Provider [phone] Reason for Visit * Reason Onset Date Comments Med Refill 11/01/2024 JOSE GARCIA MD- MED REFILL 11/01/2024 Encounter Details Date Type Department Care Team (Late st Contact Info) Description 11/01/2024 Refill [facility] CARDIOLOG[facility] [address] [place] [phone] Jose Garcia MD [address] [place] [address] Med Refill; JOSE GARCIA MD- MED REFILL Social History Tobacco Use Types Packs/Day Years [...] encounter Miscellaneous Notes * Telephone Encounter - Kayla Mayo RegSched Rep - 11/01/2024 11:03 AM EDT Caller: DAILY RUBIO Relationship: Emergency Contact Best call back number: [phone] Requested Prescriptions: Requested Prescriptions Pending Prescriptions Disp Refills furosemide (LASIX) 40 MG tablet Sig: Take 1 tablet by mouth Daily As Needed (swelling). potassium chloride (Klor-Con M20) 20 MEQ CR tablet 60 tablet 3 Sig: Take 1 tablet by mouth 2 (Two) Times a Day. Pharmacy where request should be sent: [id number] [place] - [address] AT [address]EXT TO [facility] - [phone] [facility] [phone] FX Last office visit with prescribing clinician: 09/16/2024 Last telemedicine visit with prescribing clinician: Visit date not found Next office visit with prescribing clinician: 02/17/2025 Additional details provided by patient: Does the patient have less than a 3 day supply: [x] Yes [] No Would you like a call back once the refill request has been completed: [] Yes [] No If the office needs to give you a call back, can they leave a voicemail: [] Yes [] No Artur Meier 11/01/24 11:08 EDT documented in this encounter Plan of Treatment Upcoming Encounters Date Type Department Care Team (Late st Contact Info) Description 02/17/2025 11:00 AM EDT Office Visit [facility] [address] [address] Jose Garcia MD [address] [place] [address] 02/17/2025 11:00 AM EDT Clinical Support No Requirements [facility] [address] [place] [address] documented as of this encounter Visit Diagnoses Diagnosis Chronic systolic (congestive) heart failure documented in this encounter Care Teams Internal Communications Manager Relationship Specialty Start Date End Date Paul Be MD [address] [place] [address] PCP - General Family Medicine 05/01/19 documented as of this encounter
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
--- OUTSIDE RECORDS SUMMARY | 2024-12-27 15:12 | XMS_ITS | Encounter Summary ---
Author Organization [employer] ([place], [place], [place], [place]) Address [address] [place] [address] Care Team Providers Care Igniter Capper Name Role Phone Unavailable Primary Care Provider Unavailabl e Encounter Details Date Type Department Care Team (Late st Contact Info) Description 06/11/2020 Transcribed Document [facility] Family Medicine [facility] [place] [address] ProviderRey MD [address] [place] [address] Social History Tobacco Use Types Packs/Day Years Used Date Smoking Tobacco: Never Assessed Sex and Gender Information Value Date Recorded Sex Assigned at Not on file Legal Sex Male 5:08 PM CDT Gender Identity Not on file Sexual Orientation Not on file documented as of this encounter Miscellaneous Notes * Cerner Conversion Note - Historical ProviderMD - 06/11/2020 5:06 PM LIVESTOCK BUYER Nursing Discharge Summary Entered On: 06/11/2020 17:07 [...] - 06/11/2020 17:06 EST Electronically signed by [facility] Conversion Day Light Relief Operator Cerner at 09/22/2022 1:58 PM CDT documented in this encounter Plan of Treatment Not on file documented as of this encounter Visit Diagnoses Not on filedocumented in this encounter
--- OUTSIDE RECORDS SUMMARY | 2024-12-27 15:12 | XMS_ITS | Encounter Summary ---
Author Organization [facility] Address [address] [place] [address] Care Team Providers Care Yeast Fermentation Attendant Name Role Phone Paul Be MD Primary Care Provider [phone] Reason for Visit * Reason Onset Date Comments DR. GARCIA - CARDIAC CLEARANCE 11/15/2024 Encounter Details Date Type Department Care Team (Late st Contact Info) Description 11/15/2024 Telephone [facility] [address] [phone] Orin Garcia MD [address] [place] [address] DR. GARCIA - CARDIAC CLEARANCE Social History Tobacco Use Types [...] Telephone Encounter - Marika Ivy MA - 11/18/2024 7:41 AM EDT FAX HAS BEEN SENT. * Telephone Encounter - Shira Petersen RegSched Rep - 11/15/2024 9:36 AM EDT ..Any new symptoms since last OV such as chest pain SOA? NO Any worsening of edema or worsening palpitations? NO Any major medical issues since last OV we need to know? NO Is the patient on Eliquis, xarelto, pradaxa? ELIQUIS Is the patient on aspirin? NO Is the patient on brilinta (ticagrelor), plavix (clopidogrel), prasugrel (effient)? NO Is the patient on medications like mounjaro or ozempic? NO Last EKG? 07/24/2024 Last stress test? 11/29/2022 Last echo? 05/21/2024 Last heart cath or CCTA? 01/17/23 Last OV? 09/16/2024 LAST PM CHECK: 09/16/24 * Telephone Encounter - Roberto Zepeda RegSched Rep - 11/15/2024 8:55 AM EDT REQUEST FOR CARDIAC CLEARANCE Caller name: ROSY FROM DR. RODGERS'S OFFICE Surgeon's name: DR. RODGERS Type of planned surgery: RIGHT INGUINAL HERNIA REPAIR Date of planned surgery: NOT SCHEDULED Type of anesthesia: UNKNOWN Have you been experiencing chest pain or shortness of breath? UNKNOWN Is your doctor requesting for you to stop any of your medications prior to your surgery? BLOOD THINNERS Where should we fax the clearance to? [phone] documented in this encounter Plan of Treatment Upcoming Encounters Date Type Department Care Team (Late st Contact Info) Description 02/17/2025 11:00 AM EDT Office Visit [facility] [address] [phone] Orin Garcia MD [address] [place] [address] 02/17/2025 11:00 AM EDT Clinical Support No Requirements [facility] [address] [place] [address] documented as of this encounter Visit Diagnoses Not on filedocumented in this encounter Care Teams Yeast Fermentation Attendant Relationship Specialty Start Date End Date Paul Be MD [address] [place] [address] PCP - General Family Medicine 05/01/19 documented as of this encounter
--- OUTSIDE RECORDS SUMMARY | 2024-12-27 15:12 | XMS_ITS | Encounter Summary ---
Author Organization [facility] Address [address] [place] [address] Care Team Providers Care Sports Manager Name Role Phone Paul Be MD Primary Care Provider [phone] Reason for Visit * Reason Comments Med Refill Encounter Details Date Type Department Care Team (Late st Contact Info) Description 11/14/2024 Refill [facility] [address] [place] [address] Emilee Purvis APRN [address] [place], [place] [id number] Med Refill Social History Tobacco Use Types Packs/Day Years [...] on file documented as of this encounter Plan of Treatment Upcoming Encounters Date Type Department Care Team (Late st Contact Info) Description 02/17/2025 11:00 AM EDT Office Visit [facility] [address] [address] Orin Garcia MD [address] [place] [address] 02/17/2025 11:00 AM EDT Clinical Support No Requirements [facility] [address] [place] [address] documented as of this encounter Visit Diagnoses Not on filedocumented in this encounter Care Teams Sports Manager Relationship Specialty Start Date End Date Paul Be MD [address] [place] [address] PCP - General Family Medicine 05/01/19 documented as of this encounter
--- OUTSIDE RECORDS SUMMARY | 2024-12-27 15:12 | XMS_ITS | Encounter Summary ---
Author Organization [facility] Address [address] [place] [address] Care Team Providers Care Preparation Room Manager Name Role Phone Paul Be MD Primary Care Provider [phone] Reason for Visit * Reason Comments Med Refill Encounter Details Date Type Department Care Team (Late st Contact Info) Description 11/07/2024 Refill [facility] [address] [place] [address] Emilee Purvis APRN [address] [place], [place] [id number] Med Refill Social History Tobacco Use Types [...] Encounter - Shira Petersen RegSched Rep - 11/07/2024 8:13 AM EDT 10/08/24 labs Potassium : 4.3 Creatinine: 1.06 documented in this encounter Plan of Treatment Upcoming Encounters Date Type Department Care Team (Late st Contact Info) Description 02/17/2025 11:00 AM EDT Office Visit [facility] [address] [address] Orin Garcia MD [address] [place] [address] 02/17/2025 11:00 AM EDT Clinical Support No Requirements [facility] [address] [address] documented as of this encounter Visit Diagnoses Not on filedocumented in this encounter Care Teams Preparation Room Manager Relationship Specialty Start Date End Date Paul Be MD [address] [facility] [place] [address] PCP - General Family Medicine 05/01/19 documented as of this encounter
--- OUTSIDE RECORDS SUMMARY | 2024-12-27 15:12 | XMS_ITS | Encounter Summary ---
Author Organization [employer] ([place], [place], [place], [place]) Address [address] [place] [address] Care Team Providers Care Manufacturing Engineering Director Name Role Phone Unavailable Primary Care Provider Unavailabl e Encounter Details Date Type Department Care Team (Late st Contact Info) Description 06/11/2020 Transcribed Document [facility] Family Medicine [address] [place] [address] ProviderRey MD [address] [place] [address] Social History Tobacco Use Types Packs/Day Years Used Date Smoking Tobacco: Never Assessed Sex and Gender Information Value Date Recorded Sex Assigned at Not on file Legal Sex Male 5:08 PM CDT Gender Identity Not on file Sexual Orientation Not on file documented as of this encounter Miscellaneous Notes * Cerner Conversion Note - Rey ProviderMD - 06/11/2020 4:09 PM AMBULATORY CARE COORDINATOR [facility] [place] [address] ANGI RUBIO :1940 Visit Time:06/11/2020 Your Visit Summary Your Care Team Admitting Physician - OBED MOSELEY MD-CAR Attending Physician - OBED MOSELEY [...] problems Where: [address] [place] [address] [place] [address]- Business (1) Medications What How [...] these instructions at home: Medicines ??? Take wbex-shb-jwyygtn and prescription medicines only as told by your health care provider. Insertion site care ??? Follow instructions from your health care provider about how to take care of your insertion site. Make sure you: ? Wash your hands with soap and water before you change your bandage (dressing). If soap and water are not available, use hand shroud line tier. ? Change your dressing as told by [...] 06/24/2011 Document Revised: 06/27/2018 Document Reviewed: 06/27/2018 ElseDev[employer] Patient Education ?? 2020 [employer] Moderate Conscious Sedation, Adult, Care After [...] you are awake and alert. ??? Take hivq-sdg-uzofids and prescription medicines only as told by [...] Reviewed: 09/10/2016 Elsevier Patient Education ?? 2020 [employer] Angiogram, Care After This sheet gives [...] and water are not available, use hand shroud line tier. ? Change your dressing as told by [...] contrast dye from your body. ??? Take qigs-jgu-qzrgnnf and prescription medicines only as told by [...] 12/08/2005 Document Revised: 05/04/2018 Document Reviewed: 04/26/2017 [employer] Patient Education ?? 2020 [employer]. sacubitril and valsartan (sak UE bi tril [...] or ?? if you are on a tdm-aslk-nquh. Do not use if you are , [...] have an allergic reaction if you are -Thai. Also call your doctor at once if [...] may report side effects to FDA at 5-171-XPG-2548. What other drugs will affect sacubitril and [...] affect sacubitril and valsartan, including prescription and ylbe-mqg-mfpihvd medicines, vitamins, and herbal products. Not all [...] to ensure that the information provided by [employer]. ('[employer]') is accurate, up-to-date, and complete, but no guarantee is made to that effect. Drug information contained herein may be time sensitive. [employer] information has been compiled for use by healthcare practitioners and consumers in the [place] and therefore [employer] does not warrant that uses outside of the [place] are appropriate, unless specifically indicated otherwise. [employer]'s drug information does not endorse drugs, diagnose patients or recommend therapy. [employer] drug information is an informational resource designed [...] effective or appropriate for any given patient. [employer] does not assume any responsibility for any aspect of healthcare administered with the aid of information [employer] provides. The information contained herein is not intended to cover all possible uses, directions, precautions, warnings, drug interactions, allergic reactions, or adverse effects. If you have questions about the drugs you are taking, check with your doctor, nurse or pharmacist. Copyright 7702-1279 [employer]. Version: 4.01. Revision Date: 04/24/2019. Emergency Awareness [...] Assistance with quitting is available by contacting 5-289-IPXE-NOW. This is a free resource providing counseling, [...] VL Vascular Access: VL Vascular Access Patient Name:RAMIRO ANGI RODGERS I have received and understand this information and was given the opportunity to ask questions. Patient/Mica Plate Layer Name: Patient/Mica Plate Layer Signature: Relationship to Patient: Clinician/Hospital Mica Plate Layer Signature: Date: documented in this encounter Plan of Treatment Not on file documented as of this encounter Visit Diagnoses Not on filedocumented in this encounter
--- OUTSIDE RECORDS SUMMARY | 2024-12-27 15:12 | XMS_ITS | Encounter Summary ---
Author Organization [employer] ([place], [place], [place], [place]) Address [address] [place] [address] Care Team Providers Care Electrocardiograph Operator Name Role Phone Unavailable Primary Care Provider Unavailabl e Encounter Details Date Type Department Care Team (Late st Contact Info) Description 06/11/2020 Transcribed Document [facility] Family Medicine [facility] [place] [address] ProviderRey MD [address] [place] [address] Social History Tobacco Use Types Packs/Day Years Used Date Smoking Tobacco: Never Assessed Sex and Gender Information Value Date Recorded Sex Assigned at Not on file Legal Sex Male 5:08 PM CDT Gender Identity Not on file Sexual Orientation Not on file documented as of this encounter Miscellaneous Notes * Cerner Conversion Note - Rey ProviderMD - 06/11/2020 4:08 PM COLLEGE TEACHER Patient Education Materials Follows: Radial Site Care [...] these instructions at home: Medicines ??? Take ctpx-dgb-sswxrft and prescription medicines only as told by your health care provider. Insertion site care ??? Follow instructions from your health care provider about how to take care of your insertion site. Make sure you: ? Wash your hands with soap and water before you change your bandage (dressing). If soap and water are not available, use hand support service tech. ? Change your dressing as told by [...] 06/24/2011 Document Revised: 06/27/2018 Document Reviewed: 06/27/2018 [employer] Patient Education ? 2020 [employer] Moderate Conscious Sedation, Adult, Care After [...] you are awake and alert. ??? Take orms-jfb-lezcmhf and prescription medicines only as told by [...] 03/12/2014 Document Revised: 05/04/2018 Document Reviewed: 09/10/2016 [employer] Patient Education ? 2020 [employer] Angiogram, Care After This sheet gives [...] and water are not available, use hand support service tech. ? Change your dressing as told by [...] contrast dye from your body. ??? Take pfpu-cah-rlsrror and prescription medicines only as told by [...] 12/08/2005 Document Revised: 05/04/2018 Document Reviewed: 04/26/2017 ElseAGLOGIC Patient Education ? 2020 [employer] documented in this encounter Plan of Treatment Not on file documented as of this encounter Visit Diagnoses Not on filedocumented in this encounter
--- OUTSIDE RECORDS SUMMARY | 2024-12-27 15:12 | XMS_ITS | Encounter Summary ---
Author Organization [employer] ([place], [place], [place], [place]) Address [address] [place] [address] Care Team Providers Care Parts Interpreter Name Role Phone Unavailable Primary Care Provider Unavailabl e Encounter Details Date Type Department Care Team (Late st Contact Info) Description 06/11/2020 Transcribed Document [facility] [place] [facility] [place] [address] ProviderRey MD [address], [place] [id number] Social History Tobacco Use Types Packs/Day Years Used Date Smoking Tobacco: Never Assessed Sex and Gender Information Value Date Recorded Sex Assigned at Not on file Legal Sex Male 5:08 PM CDT Gender Identity Not on file Sexual Orientation Not on file documented as of this encounter Miscellaneous Notes * Cerner Conversion Note - Rey ProviderMD - 06/11/2020 9:30 AM SOCIAL WORKER ASSISTANT Patient: ANGI RUBIO Age: 79 years Sex: Male : 1940 Associated Diagnoses: None Author: OBED TAN MD-CAR Basic Information PCP: Dr. Be Process Manufacturing Engineer: Marry Willis MD Chief Complaint Abnormal Stress [...] available Problem list: All Problems Hemorrhoids / [id number] / Confirmed, Active Problems (1) Hemorrhoids Histories No education data available. Social & Psychosocial Habits Tobacco 05/22/2014 Tobacco Use Within Last Twelve Months No Smoking Status Never smoker Past Medical History: Active HLD - Hyperlipidemia (126864321) HTN - Hypertension ([id number]) Family History: Father Gastric cancer Comments: 06/10/2020 10:18 DAVID NO RN stomach cancer Mother Heart disease Procedure history: CHOLECYSTECTOMY (66326). Hand Surgery. Hernia Repair. Physical Examination VS/Measurements [...] of motion, Normal strength. Integumentary: Warm, Dry, [place]. Neurologic: Alert, Oriented. Psychiatric: Cooperative, Appropriate mood [...] Ferritin. Electronically signed by Eliud Sanchez Conversion Commanding Officer Motorized Squad Cerner at 09/22/2022 2:06 PM CDT documented in this encounter Plan of Treatment Not on file documented as of this encounter Visit Diagnoses Not on filedocumented in this encounter
--- OUTSIDE RECORDS SUMMARY | 2024-12-27 15:12 | XMS_ITS | Clinical Summary ---
Author Organization [facility] ([place], [place], [place], [place]) Address [address] [place] [address] Care Team Providers Care Contact Agent Name Role Phone Unavailable Primary Care Provider [...]
--- OUTSIDE RECORDS SUMMARY | 2024-12-27 15:12 | XMS_ITS | Data Portability ---
Author Organization JÚNIOR JERRY Abraham [place] [facility] Address [address] [facility] [address] [place] [address] Assessment Encounter Date Assessment Date Assessment LastModified by Organization Details LastModified Time 03/02/2017 03/02/2017 We will treat initially with Lotrisone but he does desire circumcision later this year. [email or web address] Not available 03/05/2017 20:56:03 06/06/2017 06/06/2017 SURGERY [...] 19:53:19 07/06/2017 07/06/2017 Circumcision is healing appropriately. [email or web address] Not available 07/09/2017 21:20:46 01/11/2018 01/11/2018 He is doing well following circumcision. He has minimal lower urinary tract symptoms and benign GINNY. Annual follow-up. [email or web address] Not available 01/13/2018 10:13:16 11/08/2018 11/08/2018 Lower urinary tr act symptoms stable. Annual follow-up. Not available 12/02/2018 18:33:46 Plan of Treatment Reminders Order Date Submit Date Provider Last Modified By Organization Details Last Modified Time Details Appointments None recorded. Lab urinalysis , dipstick, auto 2018 019 [email or web address] 4 [facility] Extended Services With [address], [place], [address], 9 18:33:47 urinalysis , dipstick, auto 2017 018 [email or web address] 4 [facility] Extended Services With [address], [place], [address], 8 10:13:17 urinalysis , dipstick, auto 2017 [email or web address] [place] [address] Extended Services With [address], [place], [address], 8 21:20:01 urinalysis , dipstick, auto 2016 017 [email or web address] 4 [facility] Extended Services With [facility], [address] [place] [address] Dr Gillis, [place], [address], 7 16:34:19 Referral None recorded. Procedures None recorded. Surgeries circumcisi on (SURG) 2016 [email or web address] [facility], [address] [facility], [facility] [address], [place], [address], 7 09:30:00 Imaging None recorded. Medication Orders [place] 7.5 mg-325 mg tablet 2017 018 [email or web address] 4 Not available 8 14:03:30 clotrimazo le-betamet hasone 1 %-0.05 % topical cream 2016 017 INTERFACE [id number], [address] [place], [address], 7 16:34:21 Patient TargetsNo targets recorded. Patient Instructions Encounter Date Encounter Id Patient Instructions Last Modified By Organization Details Last Modified Time 03/02/2017 [id number] learning about healthy weight SUE Not available 03/04/2017 16:02:43 balanitis: care instructions SUE Not available 03/04/2017 16:02:18 11/08/2018 [id number] healthy together [email or web address] Not availa ble 12/02/2018 18:33:47 Reason for Referral None Reported. Results Created Date Observation Date Name Description Value Unit Range Abnormal Flag Note LastModifiedBy Organization Detail LastModifiedTime 11/09/19 19 11/08/2018 urina lysis , dipst ick, auto Unknown Analyte Yellow Not Available [facility] Extended Services With [address], [place], [address], 11/08/2018 16:10:42 11/09/19 19 11/08/2018 urina lysis , dipst ick, auto Unknown Analyte Clear Not Available [facility] Extended Services With [address] [place], [address], 11/08/2018 16:10:42 11/09/19 19 11/08/2018 urina lysis , dipst ick, auto Unknown Analyte 1.020 Not Available [facility] Extended Services With [address] [place], [address], 11/08/2018 16:10:42 11/09/19 19 11/08/2018 urina lysis , dipst ick, auto Unknown Analyte 1.003 - 1.035 Not Available [facility] Extended Services With [address] [place], [address], 11/08/2018 16:10:42 11/09/19 19 11/08/2018 urina lysis , dipst ick, auto Unknown Analyte 6.0 Not Available [facility] Extended Services With [address] [place], [address], 11/08/2018 16:10:42 11/09/19 19 11/08/2018 urina lysis , dipst ick, auto Unknown Analyte 5.0 - 8.0 Not Available [facility] Extended Services With [address] [place], [address], 11/08/2018 16:10:42 11/09/19 19 11/08/2018 urina lysis , dipst ick, auto Unknown Analyte Negati ve Not Available [facility] Extended Services With [address] [place], [address], 11/08/2018 16:10:42 11/09/19 19 11/08/2018 urina lysis , dipst ick, auto Unknown Analyte Negati ve Not Available [facility] Extended Services With [address] [place], [address], 11/08/2018 16:10:42 11/09/19 19 11/08/2018 urina lysis , dipst ick, auto Unknown Analyte Negati ve Not Available [facility] Extended Services With [address] [place], [address], 11/08/2018 16:10:42 11/09/19 19 11/08/2018 urina lysis , dipst ick, auto Unknown Analyte Negati ve Not Available [facility] Extended Services With [address] [place], [address], 11/08/2018 16:10:42 11/09/19 19 11/08/2018 urina lysis , dipst ick, auto Unknown Analyte Negtiv e Not Available [facility] Extended Services With [address] [place], [address], 11/08/2018 16:10:42 11/09/19 19 11/08/2018 urina lysis , dipst ick, auto Unknown Analyte Negati ve - Trace Not Available [facility] Extended Services With [address] [place], [address], 11/08/2018 16:10:42 11/09/19 19 11/08/2018 urina lysis , dipst ick, auto Unknown Analyte Normal Not Available [facility] Extended Services With [address] [place], [address], 11/08/2018 16:10:42 11/09/19 19 11/08/2018 urina lysis , dipst ick, auto Unknown Analyte Normal Not Available [facility] Extended Services With [address] [place], [address], 11/08/2018 16:10:42 11/09/19 19 11/08/2018 urina lysis , dipst ick, auto Unknown Analyte Negati ve Not Available [facility] Extended Services With [address] [place], [address], 11/08/2018 16:10:42 11/09/19 19 11/08/2018 urina lysis , dipst ick, auto Unknown Analyte Negati ve Not Available [facility] Extended Services With [address] [place], [address], 11/08/2018 16:10:42 11/09/19 19 11/08/2018 urina lysis , dipst ick, auto Unknown Analyte Normal Not Available [facility] Extended Services With [address] [place], [address], 11/08/2018 16:10:42 11/09/19 19 11/08/2018 urina lysis , dipst ick, auto Unknown Analyte Normal - 1mg/dl Not Available [facility] Extended Services With [address] [place], [address], 11/08/2018 16:10:42 11/09/19 19 11/08/2018 urina lysis , dipst ick, auto Unknown Analyte Negati ve Not Available [facility] Extended Services With [address] [place], [address], 11/08/2018 16:10:42 11/09/19 19 11/08/2018 urina lysis , dipst ick, auto Unknown Analyte Negati ve Not Available [facility] Extended Services With [address] [place], [address], 11/08/2018 16:10:42 11/09/19 19 11/08/2018 urina lysis , dipst ick, auto Unknown Analyte Negati ve Not Available [facility] Extended Services With [address] [place], [address], 11/08/2018 16:10:42 11/09/19 19 11/08/2018 urina lysis , dipst ick, auto Unknown Analyte Negati ve Not Available [facility] Extended Services With [address] [place], [address], 11/08/2018 16:10:42 11/09/19 19 11/08/2018 urina lysis , dipst ick, auto Unknown Analyte Clean Catch Not Available [facility] Extended Services With [address] [place], [address], 11/08/2018 16:10:42 11/09/19 19 11/08/2018 urina lysis , dipst ick, auto Unknown Analyte Automa ya Not Available [facility] Extended Services With [address], [place], [address], 11/08/2018 16:10:42 01/12/20 18 01/11/2018 urina lysis , dipst ick, auto Unknown Analyte Yellow Not Available [facility] Extended Services With [address], [place], [address], 01/11/2018 14:33:40 01/12/20 18 01/11/2018 urina lysis , dipst ick, auto Unknown Analyte Clear Not Available [facility] Extended Services With [address] [place], [address], 01/11/2018 14:33:40 01/12/20 18 01/11/2018 urina lysis , dipst ick, auto Unknown Analyte 1.015 Not Available [facility] Extended Services With [address] [place], [address], 01/11/2018 14:33:40 01/12/20 18 01/11/2018 urina lysis , dipst ick, auto Unknown Analyte 6.5 Not Available [facility] Extended Services With [address], [place], [address], 01/11/2018 14:33:40 01/12/20 18 01/11/2018 urina lysis , dipst ick, auto Unknown Analyte Negati ve Not Available [facility] Extended Services With [address] [place], [place], [address], 01/11/2018 14:33:40 01/12/20 18 01/11/2018 urina lysis , dipst ick, auto Unknown Analyte Negati ve Not Available [facility] Extended Services With [address] [place], [address], 01/11/2018 14:33:40 01/12/20 18 01/11/2018 urina lysis , dipst ick, auto Unknown Analyte Negtiv e Not Available [facility] Extended Services With [address], [place], [address], 01/11/2018 14:33:40 01/12/20 18 01/11/2018 urina lysis , dipst ick, auto Unknown Analyte Normal Not Available [facility] Extended Services With [address] [place], [address], 01/11/2018 14:33:40 01/12/20 18 01/11/2018 urina lysis , dipst ick, auto Unknown Analyte Negati ve Not Available [facility] With [address] [place], [address], 01/11/2018 14:33:40 01/12/20 18 01/11/2018 urina lysis , dipst ick, auto Unknown Analyte Normal Not Available [facility] Extended Services With [address] [place], [address], 01/11/2018 14:33:40 01/12/20 18 01/11/2018 urina lysis , dipst ick, auto Unknown Analyte Negati ve Not Available [facility] Extended Services With [address], [place], [address], 01/11/2018 14:33:40 01/12/20 18 01/11/2018 urina lysis , dipst ick, auto Unknown Analyte Negati ve Not Available [facility] Extended Services With [address] [place], [address], 01/11/2018 14:33:40 01/12/20 18 01/11/2018 urina lysis , dipst ick, auto Unknown Analyte Clean Catch Not Available [facility] Extended Services With [address], [place], [address], 01/11/2018 14:33:40 01/12/20 18 01/11/2018 urina lysis , dipst ick, auto Unknown Analyte Automa ya Not Available [facility] Extended Services With [address] [place], [address], 01/11/2018 14:33:40 07/06/19 18 07/06/2017 urina lysis , dipst ick, auto Unknown Analyte Yellow Not Available [facility] Extended Services With [address] [place], [address], 07/06/2017 14:00:01 07/06/19 18 07/06/2017 urina lysis , dipst ick, auto Unknown Analyte Clear Not Available [facility] Extended Services With [address] [place], [address], 07/06/2017 14:00:01 07/06/19 18 07/06/2017 urina lysis , dipst ick, auto Unknown Analyte 1.025 Not Available [facility] Extended Services With [address], [place], [address], 07/06/2017 14:00:01 07/06/19 18 07/06/2017 urina lysis , dipst ick, auto Unknown Analyte 5.0 Not Available [facility] Extended Services With [address], [place], [address], 07/06/2017 14:00:01 07/06/19 18 07/06/2017 urina lysis , dipst ick, auto Unknown Analyte Negati ve Not Available [facility] Extended Services With [address] [place], [address], 07/06/2017 14:00:07/06/19 18 07/06/2017 urina lysis , dipst ick, auto Unknown Analyte Negati ve Not Available [facility] Extended Services With [address] [place], [place], [address], 07/06/2017 14:00:01 07/06/19 18 07/06/2017 urina lysis , dipst ick, auto Unknown Analyte Negtiv e Not Available [facility] Extended Services With [address] [place], [address], 07/06/2017 14:00:01 07/06/19 18 07/06/2017 urina lysis , dipst ick, auto Unknown Analyte Normal Not Available [facility] Extended Services With [address] [place], [address], 07/06/2017 14:00:01 07/06/19 18 07/06/2017 urina lysis , dipst ick, auto Unknown Analyte Negati ve Not Available [facility] With [address] [place], [address], 07/06/2017 14:00:01 07/06/19 18 07/06/2017 urina lysis , dipst ick, auto Unknown Analyte Normal Not Available [facility] Extended Services With [address] [place], [address], 07/06/2017 14:00:01 07/06/19 18 07/06/2017 urina lysis , dipst ick, auto Unknown Analyte Negati ve Not Available [facility] Extended Services With [address] [place], [address], 07/06/2017 14:00:01 07/06/19 18 07/06/2017 urina lysis , dipst ick, auto Unknown Analyte Negati ve Not Available [facility] Extended Services With [address] [place], [address], 07/06/2017 14:00:01 07/06/19 18 07/06/2017 urina lysis , dipst ick, auto Unknown Analyte Clean Catch Not Available [facility] Extended Services With [address] [place], [address], 07/06/2017 14:00:01 07/06/19 18 07/06/2017 urina lysis , dipst ick, auto Unknown Analyte Automa ya Not Available [facility] Extended Services With [address] [place], [address], 07/06/2017 14:00:01 03/02/20 17 03/02/2017 urina lysis , dipst ick, auto Unknown Analyte Yellow Not Available [facility] Extended Services With [address] [place], [address], 03/02/2017 16:31:24 03/02/20 17 03/02/2017 urina lysis , dipst ick, auto Unknown Analyte Clear Not Available [facility] Extended Services With [address], [place], [address], 03/02/2017 16:31:24 03/02/20 17 03/02/2017 urina lysis , dipst ick, auto Unknown Analyte 1.020 Not Available [facility] Extended Services With [address], [place], [address], 03/02/2017 16:31:24 03/02/20 17 03/02/2017 urina lysis , dipst ick, auto Unknown Analyte 5.0 Not Available [facility] Extended Services With [address] [place], [address], 03/02/2017 16:31:24 03/02/20 17 03/02/2017 urina lysis , dipst ick, auto Unknown Analyte Negati ve Not Available [facility] Extended Services With [address] [place], [address], 03/02/2017 16:31:24 03/02/20 17 03/02/2017 urina lysis , dipst ick, auto Unknown Analyte Negati ve Not Available [facility] Extended Services With [address] [place], [address], 03/02/2017 16:31:24 03/02/20 17 03/02/2017 urina lysis , dipst ick, auto Unknown Analyte Negtiv e Not Available [facility] Extended Services With [address] [place], [address], 03/02/2017 16:31:24 03/02/20 17 03/02/2017 urina lysis , dipst ick, auto Unknown Analyte Normal Not Available [facility] Extended Services With [address] [place], [address], 03/02/2017 16:31:24 03/02/20 17 03/02/2017 urina lysis , dipst ick, auto Unknown Analyte Negati ve Not Available [facility] Extended Services With [address] [place], [address], 03/02/2017 16:31:24 03/02/20 17 03/02/2017 urina lysis , dipst ick, auto Unknown Analyte Normal Not Available [facility] Extended Services With [address] [place], [address], 03/02/2017 16:31:24 03/02/20 17 03/02/2017 urina lysis , dipst ick, auto Unknown Analyte Negati ve Not Available [facility] Extended Services With [address] [place], [address], 03/02/2017 16:31:24 03/02/20 17 03/02/2017 urina lysis , dipst ick, auto Unknown Analyte Negati ve Not Available [facility] Extended Services With [address] [place], [address], 03/02/2017 16:31:24 03/02/20 17 03/02/2017 urina lysis , dipst ick, auto Unknown Analyte Clean Catch Not Available [facility] Extended Services With [address] [place], [address], 03/02/2017 16:31:24 03/02/20 17 03/02/2017 urina lysis , dipst ick, auto Unknown Analyte Automa ya Not Available [facility] Extended Services With [address] [place], [address], 03/02/2017 16:31:24 Result Notes None recorded. Problems Name Problem SNOMED Code Status Onset Date Resolution Date Notes Provider Name and Address Organization Details Recorded Time Burn of penis 908403564 Active 017 Gisselle paula [facility] 03/02/2017 16:27:43 Problem Notes None recorded. Procedures Surgical History Date Name Laterality Status Provider Name and Address Organization Details Recorded Time Hernia Repair completed Gisselle Prajapati [facility] 03/02/2017 16:28:41 [facility] 03/02/2017 16:28:44 Imaging Results None recorded. [...] Not Available Not Available Not Avai lable [place] 7.5 mg-325 mg tablet Take 1 tablet [...] Updated DateTime 07/06/2017 182.88 cm 35.3 kg/m2 932911.02 g 140/88 mm[Hg] [facility] 07/06/2017 13:59:32 Date Recorded Body height Body mass index (BMI) Body weight Systolic And Diastolic Provider Name and Address Organization Details Last Updated DateTime 11/08/2018 182.88 cm 35.3 kg/m2 761279.02 g 138/80 mm[Hg] Gisselle Prajapati [facility] 11/08/2018 16:09:50 Date Recorded Body height Body mass index (BMI) Body weight Systolic And Diastolic Provider Name and Address Organization Details Last Updated DateTime 01/11/2018 182.88 cm 35.3 kg/m2 107115.02 g 138/80 mm[Hg] [facility] 01/11/2018 14:32:59 Date Recorded Body height Body mass index (BMI) Body weight Systolic And Diastolic Provider Name and Address Organization Details Last Updated DateTime 03/02/2017 182.88 cm 35.3 kg/m2 462572.02 g 120/68 mm[Hg] Gisselle Prajapati [facility] 03/02/2017 16:21:30 Social History Question Answer Notes LastModified by Organizat ion Details LastModified Time Tobacco Smoking Status [facility] 03/02/2017 16:28:20 How Much Tobacco Do You Chew? None Information not available 11/08/2018 Marital Status [email or web address] Informatio n not available 03/02/2017 What Was [...] Details LastModified Time Unspecified Relation Kidney stone [email or web address] Not available 02/04 16:27:57 Father Diabetes mellitus [email or web address] Not available 2016 16:28:04 Medical History Condition Response Anxiety Disorder Y Kidney Stones Y Depression Y Past Encounters Encounter ID Performer Location Encounter Start Date Encounter Closed Date Diagnosis/Indication Diagnosis SNOMED-CT Code Diagnosis ICD10 Code Diagnosis Note [id number] LARRY MICHAELS MD [facility]ED SERVICES [address] [address] 03/02/2017 16:20:25 03/06/2017 14:55:57 Balanitis 67772737 N48.1 [id number] LARRY MICHAELS MD SURGERY SCHEDULE [address] [place] [address] 06/06/2017 10:56:46 06/06/2017 10:58:56 Balanitis 98070263 N48.1 [id number] LARRY MICHAELS MD [facility] [address] [address] 07/06/2017 13:31:15 07/12/2017 15:47:16 Balanitis [id number] N48.1 [id number] LARRY MICHAELS MD [facility] [address] [address] 01/11/2018 13:41:25 01/15/2018 07:57:24 Benign prostatic hyperplasia with outflow obstruction [id number] N40.1 [id number] LARRY MICHAELS MD [facility] [address] [address] 11/08/2018 14:52:38 12/03/2018 11:11:32 Benign prostatic hyperplasia with outflow obstruction [id number] N40.1 Health Concerns Section Related Observation LastModified by Organization Detai ls LastModified Time None Recorded Concern Status LastModified by Organization Details LastModified Time None Recorded Advance Directives Directive None Recorded Payers Insurance Date Sequence Insurance Name Policy Number Policy Myers Covered Member ID Myers Member ID Guarantor Name 12/03/2018 2 [place]MEDICARE [place] [id number] Kuldeep Leroy [id number] Kuldeep Leroy 11/05/2018 1 [place] Kuldeep Leroy [id number] Kuldeep Leroy 03/03/2017 1 *SELF PAY* Stephanie Leroy Notes Date Note Type Note Provider Name and Address Organization Details Recorded Time 03/02/2017 text/html 76-year-old male in the office for consultation and evaluation of recent recurrent balanitis. He has tried nziw-uwb-xtnekvi antifungal cream with some success. He is able to reduce his foreskin without significant problems. He does have BPH and takes Flomax 0.8 mg daily and finasteride. He voids every 2-3 hours with nocturia twice nightly. He denies hesitancy, urgency, hematuria, dysuria. LARRY MICHAELS MD [address] [place] [address], [address], [facility] 03/05/2017 20:57:09 07/06/2017 text/html 76-year-old male in the office for follow-up evaluation after recent circumcision for recurrent balanitis. He is doing well. He believes the area has healed after circumcision. He denies hematuria or dysuria. LARRY MICHAELS MD [address] [place] [address], [address], [facility] 07/09/2017 21:21:11 01/11/2018 text/html 77-year-old male in the office for follow-up evaluation of recurrent balanitis treated with circumcision. He states it has healed appropriately. He denies daytime frequency. He has nocturia twice nightly. No hematuria or dysuria. LARRY MICHAELS MD [address] [place] [address], [address], [facility] 01/13/2018 10:14:53 11/08/2018 text/html 78-year-old male in the office for follow-up evaluation of benign prostatic hyperplasia and history of balanitis status post circumcision. He denies irritative voiding symptoms. He denies hematuria or dysuria. He has nocturia 1-2 times nightly. He denies daytime frequency. LARRY MICHAELS MD [address] [place] [address] [place], [address], [facility] 12/02/2018 18:34:17
--- OUTSIDE RECORDS SUMMARY | 2024-12-27 15:12 | XMS_ITS | Referral Summary ---
Author Organization [facility] ([place], [place], [place], [place]) Address [address] [place] [address] Care Team Providers Care Freight Trucker Name Role Phone Unavailable Primary Care Provider [...]
--- OUTSIDE RECORDS SUMMARY | 2024-12-27 15:12 | XMS_ITS | Encounter Summary ---
Author Organization [employer] ([place], [place], [place], [place]) Address [address] [place] [address] Care Team Providers Care Home Improvement Installer Name Role Phone Unavailable Primary Care Provider Unavailabl e Encounter Details Date Type Department Care Team (Late st Contact Info) Description 06/11/2020 Transcribed Document [facility] [facility] [place] [address] ProviderRey MD [address] [place] [address] Social History Tobacco Use Types Packs/Day Years Used Date Smoking Tobacco: Never Assessed Sex and Gender Information Value Date Recorded Sex Assigned at Not on file Legal Sex Male 5:08 PM CDT Gender Identity Not on file Sexual Orientation Not on file documented as of this encounter Miscellaneous Notes * Cerner Conversion Note - Historical ProviderMD - 06/11/2020 10:30 AM REGIONAL HR MANAGER Pre Procedure Adult Entered On: 06/11/2020 10:38 EST Performed On: 06/11/2020 10:30 EST by JACI SPARKS RN Height and Weight, Clinical Dosing Height Source : Stated Height Entry Format : [place] Height, Feet : 6 ft(Converted to: 183 cm, 72 Inch) Height, Inches : 0 Inch(Converted to: 0 ft 0 Inch, 0.00 cm) Clinical Height : 182.88 cm Weight Source : Standing scale Weight Entry Format : [place] Clinical Dosing Weight : 127.27 kg Weight, Pounds : 280 lb Body Surface Area (BSA) : 2.46 m2 Body Mass Index : 38.1 kg/m2 (HI) [place] Body Weight : 77 kg JACI SPARKS [...] JACI SPARKS RN - 06/11/2020 10:30 EST [place] Suicide Severity Rating Scale (C-SSRS) CSSRS Past [...] Obtained From : Patient Primary Language : Uzbek Communication Barrier : None Chisel Trimmer Needed : JACI Maldonado RN - 06/11/2020 [...] Scale Risk Level : 0-24 Low Risk [place] Fall Interventions : Adequate lighting, Bed in [...] the text rendition version of the form. Eighty Four Coma Eighty Four Best Motor Response : Obey commands Fox Best Verbal Response : Oriented Fox Eye Opening Response : Spontaneous Fox Coma Score : 15 JACI SPARKS RN - 06/11/2020 10:30 EST Electronically signed by Daniel [facility] Conversion Visual Display Manager Cerner at 09/22/2022 1:51 PM CDT documented in this encounter Plan of Treatment Not on file documented as of this encounter Visit Diagnoses Not on filedocumented in this encounter
--- OUTSIDE RECORDS SUMMARY | 2024-12-27 15:12 | XMS_ITS | Encounter Summary ---
Author Organization [facility] Address [address] [place] [address] Care Team Providers Care Philosophy Faculty Member Name Role Phone Paul Be MD Primary Care Provider [phone] Encounter Details Date Type Department Care Team (Late st Contact Info) Description 11/08/[address] [facility] [address] [place] [address] Orin Garcia MD [address] [place] [address] Social History Tobacco Use Types Packs/Day [...] encounter Miscellaneous Notes * Telephone Encounter - Murphy Perez RegSched Rep - 11/08/2024 11:27 AM EDT PT CAME INTO OFFICE 11/07 REQUESTING HIS RECORDS FROM [facility] TOM[facility]. I FAXED THE REQUEST THEY WILL SEND HIS RECORDS AFTER HIS PATHOLOGY RESULTS COME BACK. I WILL CHECK BACK WITH THE OFFICE NEXT WEEK IF NOT RECEIVED BY END OF WEEK. documented in this encounter Plan of Treatment Upcoming Encounters Date Type Department Care Team (Late st Contact Info) Description 02/17/2025 11:00 AM EDT Office Visit [facility] [address] [address] Orin Garcia MD [address] [place] [address] 02/17/2025 11:00 AM EDT Clinical Support No Requirements [facility] [address] [address] documented as of this encounter Visit Diagnoses Not on filedocumented in this encounter Care Teams Philosophy Faculty Member Relationship Specialty Start Date End Date Paul Be MD [address] [place] [address] PCP - General Family Medicine 05/01/19 documented as of this encounter
--- OUTSIDE RECORDS SUMMARY | 2024-12-27 15:13 | XMS_ITS | Data Portability ---
Author Organization 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 Plan of Treatment Reminders Order Date Submit Date Provider Last Modified By Organization Details Last Modified Time Details Appointments None recorded. Lab None recorded. Referral None recorded. Procedures None recorded. Surgeries None recorded. Imaging None recorded. Medication Orders methocarbam ol [address] [id number], [address] [place], [address], 4 15:19:20 Patient TargetsNo targets recorded. Patient InstructionsNo instructions recorded. Reason for Referral None Reported. Results Created Date Observation Date Name Description Value Unit Range Abnormal Flag Note LastModifiedBy Organization Detail LastModifiedTime 01/16/20 24 10/11/2023 CT, head + brain , w/o contr ast No observ ation record ed. [email or web address] Not Available 01/16 09:31:41 Result Notes None recorded. Problems Name Problem SNOMED Code Status Onset Date Resolution Date Notes Provider Name and Address Organization Details Recorded Time Headache 12448152 Active 2023 Adri paula [facility] & [place] 4 14:40:09 New daily persistent headache 8318248445005 05 Active 2023 Lana Pollard, DO [address] , [place], [address] , [facility] & [place] 15:10:23 Tension-ty pe headache 173242460 Active 2023 Lana Pollard, DO [address], [place], [address] , [facility] [place] & [place] 15:16:09 Problem Notes None recorded. Procedures Surgical History Date Name Laterality Status Provider Name and Address Organization Details Recorded Time cardiac pacemaker procedure completed Adri CALLEJAS - [facility] & [place] 12/06/2023 14:41:59 Cholecystectomy completed Adri Dewey [facility] - [facility] & [place] 12/06/2023 14:42:07 Fragmenting of kidney stone completed Adri Dewey [facility] - [facility] & [place] 12/06/2023 14:42:13 hernia repair completed Adri Dewey [facility] & [place] 12/06/2023 14:42:21 Imaging Results None recorded. Procedure [...] Address Organization Details Last Updated DateTime 4 006931. 83 g 38.7 kg/m2 182.88 cm 97 % 97 % 88 /min 110/68 mm[Hg] Adri CALLEJAS [facility] & [place] 14:50:12 Social History Question Answer Notes LastModified by [employer] Details LastModified Time Tobacco Smoking Status Never Smoker Adri Love chai, [facility] & [place] 12/06/2023 14:41:16 What Is Your Level Of Caffeine Consumption? Moderate Information not available 12/06/2023 What Is Your Relationship Status? Lives With Information not available 12/06/2023 Are You Currently In School? No Diploma Information not available 12/06/2023 Sex: Unknown Functional Status Question Answer Note LastModified by [employer] Details LastModified Time Do you use any [...] available 2023 14:40:47 Medical History Condition Response Heart Problems Y Atrial Fibrillation Y Kidney Stones Y Ear or Hearing Problems Y Pacemaker Y Sinusitis Y Mental Illness Y Diabetes Y Congestive Heart Failure (CHF) Y Heart Disease Y Headaches Y Hypertension Y Past Encounters Encounter ID Performer Location Encounter Start Date Encounter Closed Date Diagnosis/Indication Diagnosis SNOMED-CT Code Diagnosis ICD10 Code Diagnosis Note [id number] Lana Pollard DO [facility] [address] [facility],[address] [place] [address] 12/06/2023 14:34:12 12/06/2023 15:31:05 Tension-type headache 268357086 G44.209 New daily headaches for the last [...] Name 10/20/2024 2 [place] [id number] Kuldeep Leroy [id number] Kuldeep Leroy 10/20/2024 1 [place] Kuldeep Leroy [id number] Kuldeep Leroy Notes Date Note Type Note Provider Name and Address Organization Details Recorded Time 12/06/2023 text/html 83 y/o right handed male here for neurologic consultation requested by Dr Be regarding headaches. Kuldeep is accompanied by his today. Kuldeep reports having a constant headache for the last two months. It started as a dull headache and gradually got worse.He went to [facility] on 10/11/23 due to the headache. [...] last couple of weeks. Lana Pollard, DO [address], [place], [address], [facility] - [place] & [place] 12/06/2023 15:41:45
--- OUTSIDE RECORDS SUMMARY | 2024-12-27 15:13 | XMS_ITS | Encounter Summary ---
Author Organization [facility] Address [address] [place] [address] Care Team Providers Care Irrigator Sprinkling System Name Role Phone Paul Be MD Primary Care Provider [phone] Reason for Visit * Reason Comments Med Refill Encounter Details Date Type Department Care Team (Late st Contact Info) Description 05/10/2024 Refill [facility] [address] [address] Zenobia Costa APRN [address] [address] Med Refill Social History Tobacco Use Types [...] Description 02/17/2025 11:00 AM EDT Office Visit [facility] [address] [place] [address] Orin Garcia MD [address] [place] [address] 02/17/2025 11:00 AM EDT Clinical Support No Requirements [facility] [address] [place] [address] documented as of this encounter Visit Diagnoses Not on filedocumented in this encounter Care Teams Irrigator Sprinkling System Relationship Specialty Start Date End Date Paul Be MD [address] [place] [address] PCP - General Family Medicine 05/01/19 documented as of this encounter
--- NOTE | 2024-12-27 15:17 | HMH.EDGENADL ---
Discharge Plan Disposition Patient Disposition: Home, Self-Care Prescriptions Prescriptions: No Action metformin 500 mg tablet 500 mg PO DAILY Patient Comments: TAKE 1 TABLET BY MOUTH TWICE A DAY TO IMPROVE DIABETES albuterol sulfate 90 mcg/actuation HFA aerosol inhaler 90 inh inhalation DAILY Patient Comments: INHALE 2 PUFFS EVERY 6 HOURS NEEDED FOR WHEEZING OR SHORTNESS OF AIR. urea 40 % cream 1 applic topical BID 30 Days Qty: 60 3RF mupirocin 2 % ointment 1 applic topical BID 21 Days Qty: 22 1RF Rx Instructions: Apply to affected area up to twice daily Eliquis 5 mg tablet 5 mg PO Q12H Patient Comments: TAKE 1 TABLET BY MOUTH EVERY 12 HOURS atorvastatin 40 mg tablet 40 mg PO ONCE Patient Comments: TAKE 1 TABLET BY MOUTH EVERY DAY carvedilol 6.25 mg tablet 6.25 mg PO BID Patient Comments: TAKE 1 TABLET BY MOUTH TWICE A DAY citalopram 20 mg tablet 20 mg PO ONCE Patient Comments: TAKE 1 TABLET BY MOUTH EVERY DAY finasteride 5 mg tablet 5 mg PO ONCE Patient Comments: TAKE 1 TABLET EVERY DAY furosemide 40 mg tablet 40 mg PO ONCE Patient Comments: TAKE 1 TABLET BY MOUTH EVERY DAY potassium chloride [Klor-Con M20] 20 mEq tablet,ER particles/crystals 20 meq PO ONCE Patient Comments: TAKE 1 TABLET BY MOUTH EVERY DAY Entresto 24-26 mg tablet 1 tab PO .Q12 Patient Comments: TAKE 1 TABLET BY MOUTH EVERY 12 HOURS tamsulosin 0.4 mg capsule 0.8 mg PO ONCE Patient Comments: TAKE 2 CAPSULES BY MOUTH EVERY DAY temazepam 30 mg capsule 30 mg PO DAILY Patient Comments: TAKE 1 CAPSULE BY MOUTH AT BEDTIME Creon 36,000-114,000- 180,000 unit capsule,delayed release(DR/EC) 1 cap PO .With meals Qty: 300 12RF Rx Instructions: Please take 1 capsule with meals and/or snacks not to exceed 6 a day hydrocodone-acetaminophen 5-325 mg Tablet 1 - 2 tab PO Q6H PRN (Reason: Pain) Qty: 21 0RF Referrals Follow up/Referrals: Paul Be [Primary Care Provider, Medical] - See instructions Activity Restrictions/Add. Instructions Additional Instructions/Restrictions: You can use the gauze and tape provided to you to create a barrier over the wound until you are able to follow-up with Dr. Hayden's office on Monday. If you develop any new or worsening symptoms, such as worsening and uncontrolled bleeding, fever, worsening pain in the area, or if you get concerned for your health for any reason, return to the emergency department for evaluation Clinical Impressions Clinical Impression: Surgical wound hemorrhage Print Language Print Language: Tamazight Discharge ED Provider: Reinier Saldana General Adult HPI General Chief complaint: Skin/Abscess/Foreign Body Stated complaint: Surgery site bleeding Time Seen by Provider: 12/27/24 15:05 Mode of Arrival: Ambulatory Source of Information: Patient Limitations: No Limitations History of Present Illness HPI narrative: Kuldeep Leroy is an 84-year-old male with indirect hernia repair by Dr. Hayden on 12/02/24, diabetes, who presents to the emergency department for complaints of bleeding from his surgical site. Patient states that over the last 3 days, he has had a small amount of oozing from his surgical site. He states that it got on his white underwear. They tried to place Steri-Strips over the wound but those became bloody as well. He reports feeling some tightness in the area ever since the surgery that is unchanged from baseline. They want to make sure that the wound would not get infected. They called surgery office who stated they can follow-up on Monday or come to the emergency department for evaluation. Patient states that he has been following his activity requirements. Related Data Home Medications ?Medication ?Instructions ?Recorded ?Confirmed albuterol sulfate 90 mcg/actuation 90 inh inhalation DAILY 09/28/23 12/12/24 aerosol inhaler apixaban 5 mg tablet (Eliquis) 5 mg PO Q12H 10/15/24 12/12/24 atorvastatin 40 mg tablet 40 mg PO ONCE 10/15/24 12/12/24 carvedilol 6.25 mg tablet 6.25 mg PO BID 10/15/24 12/12/24 citalopram 20 mg tablet 20 mg PO ONCE 10/15/24 12/12/24 finasteride 5 mg tablet 5 mg PO ONCE 10/15/24 12/12/24 furosemide 40 mg tablet 40 mg PO ONCE 10/15/24 12/12/24 potassium chloride 20 mEq 20 meq PO ONCE 10/15/24 12/12/24 tablet,extended release(part/cryst) (Klor-Con M) sacubitril 24 mg-valsartan 26 mg 1 tab PO .Q12 10/15/24 12/12/24 tablet (Entresto) tamsulosin 0.4 mg capsule 0.8 mg PO ONCE 10/15/24 12/12/24 temazepam 30 mg capsule 30 mg PO DAILY 10/15/24 12/12/24 metformin 500 mg tablet 500 mg PO DAILY 10/21/24 12/12/24 Previous Rx's ?Medication ?Instructions ?Recorded mupirocin 2 % topical ointment 1 applic topical BID cellulitis 3 09/28/23 weeks #22 grams urea 40 % topical cream 1 applic topical BID keratosis 30 09/28/23 days #60 applic hydrocodone 5 mg-acetaminophen 325 1 - 2 tab PO Q6H PRN Pain #21 tabs 12/02/24 mg tablet mzlakt-wdavrusn-piyasss 1 cap PO .With meals #300 caps 12/26/24 36,000-114,000-180,000 unit capsule,delay rel (Creon) Allergies Allergy/AdvReac Type Severity Reaction Status Date / Time No Known Allergies Allergy Verified 12/12/24 10:47 [facility] Disclaimer: The information contained in this section may have been updated after the patient was seen, as this information can be updated by other users. Medical History Diabetes Heart disease FH: cholecystectomy Inguinal hernia Kidney stones Shortness of breath Surgical History History of cholecystectomy History of surgery kidney stone removal H/O hernia repair S/P placement of cardiac pacemaker Family History Father , 98 y/o Cancer stomach Diabetes Mother , 92 y/o Heart disease Social History Smoking Status: Never smoker alcohol intake: never substance use type: denies use current occupational status: retired Travel in the last 8 weeks?: Inside the [place] household members: spouse housing: house lives independently: Yes marital status: Have you lived/traveled outside [place] in past 30 days?: No Contact w/someone who lives/traveled outside US past 30 days?: No Exposure to someone with infectious disease in past 14 days?: No Do you have a fever (greater than 100.4 F or 38 C)?: No Have you tested positive for COVID-19?: No Exposed to someone with COVID-19 in past 14 days?: No Do you have a sore throat?: No Do you have a cough?: No Do you have any weakness?: No Do you have any diarrhea?: No Are you experiencing any unusual bleeding?: No Do you have any muscle aches/pain?: No Do you have any abdominal pain?: No Are you experiencing loss of taste or smell?: No Other Medical History Have you received the Pneumonia Vaccine: Yes ROS Obtained: Yes Systems reviewed as appropriate & no additional complaints except as documented Physical Exam General General appearance: alert, in no apparent distress and obese Head Head exam: atraumatic Eye Eye exam: Present normal appearance ENT ENT exam: Present normal external ear exam Neck Neck exam: Present full ROM Chest Chest inspection: Present symmetric chest wall rise Respiratory Respiratory exam: Present normal lung sounds bilaterally; Absent respiratory distress Cardiovascular Cardiovascular exam: Present regular rate and normal rhythm Abdominal Exam Abdominal exam: Present scar (Healing linear scar in the right inguinal area. Small area of dehiscence in the middle of the wound. No active bleeding. No fluctuance. No erythema. No fluid draining from the wound.); Absent distention exam: Present deferred Extremities Exam Extremities exam: Present normal inspection Back Exam Back exam: Present normal inspection Neurological Exam Neurological exam: Present alert and oriented X3 Psychiatric Psychiatric exam: Present normal affect Skin Skin exam: Present warm and dry Medical Decision Making Medical Records Screening: Per USPSTF and CDC recommendations, given the prevalence of disease in our region, it is our hospital?s policy to screen for HIV and viral Hepatitis for all patients aged 18 and over and those with ongoing risk factors. Perico Inquiry Pt receiving controlled substance: No Vital Signs: 12/27/24 15:23 Temperature 98 F Temperature Source Oral Pulse Rate [Right Brachial] 68 Respiratory Rate 16 Blood Pressure [Right Arm] 126/72 Blood Pressure Mean [Right Arm] 90 Blood Pressure Source [Right Arm] Automatic Cuff Blood Pressure Position [Right Arm] Sitting 02 Sat by Pulse Oximetry 98 Oxygen Delivery Method Room Air Medical Decision Narrative: Kuldeep Leroy is an 84-year-old male with indirect hernia repair by Dr. Hayden on 12/02/24, diabetes, who presents to the emergency department for complaints of bleeding from his surgical site. Patient states that over the last 3 days, he has had a small amount of oozing from his surgical site. He states that it got on his white underwear. They tried to place Steri-Strips over the wound but those became bloody as well. He reports feeling some tightness in the area ever since the surgery that is unchanged from baseline. They want to make sure that the wound would not get infected. They called surgery office who stated they can follow-up on Monday or come to the emergency department for evaluation. Patient states that he has been following his activity requirements. On arrival, patient is hemodynamically stable, in no acute respiratory distress, breathing comfortably on room air. Physical exam, stated above, revealed an overall well-appearing male in no distress. He has a healing surgical scar in his right inguinal area. There is no fluctuance, erythema or pus draining from the wound. It is grossly nontender. There is a small area of dehiscence in the middle of the wound but no active bleeding. Remainder of his physical exam is grossly unremarkable. Per previous note from Dr. Hayden at his most recent appointment on the of this month, it was noted the patient had a small hematoma in the area of his surgical scar but overall was healing well. This felt the patient is likely having a small amount of bleeding in this area due to hematoma but given there is no infectious symptoms, evidence of infection on physical exam, and the wound appears to be healing by secondary intention appropriately, no acute intervention or CT imaging is indicated at this time. Will supply patient with gauze to use at home with return precautions. They were structured to follow-up with Dr. Hayden's office on Monday for further guidance, however given is not actively bleeding, no further workup is indicated at this time. All questions were answered. He and his demonstrated understanding and were in agreement this plan. He was then discharged from the emergency department in stable condition. Critical Care Critical Care Time Critical Care Time: No
[2024-12-27 15:23] VITALS: BP 126/72; PULSE 68; RESP 16; TEMP 36.6; O2SAT 98; BMI 38.0
[2024-12-27 15:40] VITALS: BP 126/72; PULSE 68; RESP 17; TEMP 36.6; O2SAT 98
== END 2024-12-27 15:41 | disposition home or self-care (01) ==
PROVIDERS: Emergency Provider Student in an Organized Health Care Education/Training Program; PCP Family Medicine
DX: L76.22 Postprocedural hemorrhage of skin and subcutaneous tissue following other procedure (principal); Z87.19 Personal history of other diseases of the digestive system
CPT/HCPCS: 99282